=== PATIENT | female | born 1950 | race Caucasian/White ===

== ENCOUNTER 2017-05-26 22:18 | Emergency (ER) | payer MEDICARE, OTHER, SELFPAY ==
[~2017-05-26] VITALS: Ht 157.5 cm; Wt 68.0 kg
[~2017-05-26 22:18] MED LIST: ATIVAN1 MG PO; BUPROPION XL150 MG PO; CLONAZEPAM1 MG PO; CYTOMEL25 MCG PO; DEPLIN-ALGAL O1 EAC1 PO; DICLOFENAC SODI75 MG PO; DONEPEZIL HCL10 MG PO; DULOXETINE HCL40 MG PO; FLUOXETINE HCL20 MG PO; GABAPENTIN300 MG PO; GEODON60 MG PO; HYDROCODON-ACE1 EA10 PO; LITHIUM CARBON300 MG PO; METOPROLOL SUCC50 MG PO; PERCOCET 7.5-31 EACH PO; QUETIAPINE FUM100 MG PO; SUPER B COMPLE150 MG PO; TOPROL XL50 MG PO; TYLENOL EXTRA500 MG PO; VITAMIN D31000 UNI1 PO
[2017-05-26] MEDS ORDERED: PERCOCET 5-3251 EACH PO (23:43)
[2017-05-26] MEDS ORDERED: CRUTCH1 EACH MISC (23:55)
--- OUTSIDE RECORDS SUMMARY | 2017-05-27 00:43 | XMS ---
Demographics + + + | Address | [address] | | | [place] [address] | + + + | Preferred Language | Unknown | + + + | Marital Status | Unknown | + + + | Bahai Affiliation | Unknown | + + + | Race | Unknown | + + + | Ethnic Group | Unknown | + + + Author + + + | Author | [facility] | + + + | Organization | [facility] | + + + | Address | [address] | | | [place] [address] | + + + | Phone | | + + + Care Team Providers + + + + | Care Entry Level Finance Name | Role | Phone | + + + + Unavailable | Unavailable | + + + + PROBLEMS + + + + + + + + | Type | Condition | ICD9-CM | [id number] | Onset | Condition | SNOMED | | | | Code | Code | Dates | Status | Code | + + + + + + + + | Problem | Hypertensi | | I10 | | Active | [id number] | | | on | | | | | | + + + + + + + + | Problem | Tobacco | | Z72.0 | | Active | [id number] | | | use | | | | | | | | disorder | | | | | | + + + + + + + + | Problem | Neuropathy | G56.22 | | | Active | [id number] | | | of left | | | | | | | | ulnar | | | | | | | | nerve at | | | | | | | | wrist | | | | | | + + + + + + + + | Problem | Mitral | | I34.0 | | Active | [id number] | | | valve | | | | | | | | regurgitat | | | | | | | | ion | | | | | | + + + + + + + + | Problem | Diastolic | I51.9 | | | Active | 7027702 | | | dysfunctio | | | | | | | | n | | | | | | + + + + + + + + | Problem | Hyperchole | E78.00 | | | Active | 42575015 | | | sterolemia | | | | | | + + + + + + + + | Problem | Osteopenia | | M85.80 | | Active | 75081387 | + + + + + + + + | Problem | Heart | | R01.1 | | Active | 40953178 | | | murmur | | | | | | + + + + + + + + | Problem | MVP | I34.1 | | | Active | [id number] | | | (mitral | | | | | | | | valve | | | | | | | | prolapse) | | | | | | + + + + + + + + | Assessment | Mitral | | I34.0 | 28 Apr, | Active | 82399706 | | | valve | | | 2017 | | | | | regurgitat | | | | | | | | ion | | | | | | + + + + + + + + | Problem | Pulmonary | R91.8 | | | Active | [id number] | | | nodules | | | | | | + + + + + + + + | Problem | Left | I44.7 | | | Active | 92843451 | | | bundle | | | | | | | | branch | | | | | | | | block | | | | | | + + + + + + + + | 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 | | | Active | [id number] | | | | | | | | | | | adenocarci | | | | | | | | noma | | | | | | + + + + + + + + | Problem | Hypothyroi | E03.2 | | | Active | [id number] | | | dism, | | | | | 30547 | | | lithium | | | | | | | | induced | | | | | | + + + + + + + + | Problem | Hyperlipid | | E78.5 | | Active | [id number] | | | emia | | | | | | + + + + + + + + | Problem | Hypothyroi | E89.0 | | | Active | [id number] | | | dism | | | | | | | | associated | | | | | | | | with | | | | | | | | surgical | | | | | | | | procedure | | | | | | + + + + + + + + ALLERGIES + + + + +---------+ | Substance | Reaction | Event Type | Date | Status | + + + + +---------+ | N.K.D.A. | Unknown | Non Drug | Feb, | Unknown | | | | Allergy | | | + + + + +---------+ SOCIAL HISTORY No smoking Hx information available PLAN OF CARE VITAL SIGNS + + + + | Height | 62 in | 2017-03-25 | + + + + | Weight | 156 lbs | 2017-03-25 | + + + + | BMI | 28.53 kg/m2 | 2017-03-25 | + + + + | Temperature | 98.3 degrees Fahrenheit | 2017-03-25 | + + + + | Heart Rate | 90 /min | 2017-03-25 | + + + + | Blood pressure systolic | 138 mm Hg | 2017-03-25 | + + + + | Blood pressure diastolic | 88 mm Hg | 2017-03-25 | + + + + MEDICATIONS + + + + + + + +--------+ | Medicati | Instruct | Dosage | Frequenc | Start | End Date | Duration | Status | | on | ions | | y | Date | | | | + + + + + + + +--------+ | Geodon | Orally | 1 | 24h | | | | Active | | 80 mg | daily | capsule | | | | | | | | | with | | | | | | | | | food | | | | | | + + + + + + + +--------+ | Gabapent | Orally | 3 | 8h | | | | Active | | in 300 | Three | capsules | | | | | | | MG | times a | | | | | | | | | day | | | | | | | + + + + + + + +--------+ | Liothyro | | | | | | | Active | | nine | | | | | | | | | Sodium | | | | | | | | | 25 MCG | | | | | | | | + + + + + + + +--------+ | Levothyr | Orally | 1 tablet | 24h | 17 Sep, | | | Active | | oxine | Once a | every | | 2014 | | | | | Sodium | day | morning | | | | | | | 25 MCG | | on an | | | | | | | | | empty | | | | | | | | | stomach | | | | | | + + + + + + + +--------+ | Chlor-Ta | | | | | | | Active | | blets | | | | | | | | + + + + + + + +--------+ | Metoprol | Orally | 1 tablet | 24h | | 1 Jason, | 90 days | Active | | ol | Once a | | | | 2016 | | | | Succinat | day | | | | | | | | e 50 MG | | | | | | | | + + + + + + + +--------+ | Metoprol | | | | | | | Active | | ol | | | | | | | | | Succinat | | | | | | | | | e ER 50 | | | | | | | | | MG | | | | | | | | + + + + + + + +--------+ | Lisinopr | Orally | 1 tablet | 24h | 28 Apr, | | 30 | Active | | il 2.5 | Once a | | | 2017 | | day(s) | | | MG | day | | | | | | | + + + + + + + +--------+ | BuPROPio | Orally | 1 tablet | 12h | | | | Active | | n HCl | Twice a | | | | | | | | 150 MG | day | | | | | | | + + + + + + + +--------+ | Dennison | Orally | 2 | 24h | | | | Active | | Carbonat | Once a | capsules | | | | | | | e 300 MG | day | | | | | | | + + + + + + + +--------+ | Nicotine | Mouth/Th | 1 | 12h | | | | Active | | 2 MG | roat | lozenge | | | | | | | | Twice a | as | | | | | | | | day | needed | | | | | | + + + + + + + +--------+ | Vitamin | | | | | | | Active | | D3 5000 | | | | | | | | | UNIT/ML | | | | | | | | + + + + + + + +--------+ | Atorvast | | | | | | | Active | | atin | | | | | | | | | Calcium | | | | | | | | | 10 MG | | | | | | | | + + + + + + + +--------+ | Lorazepa | Orally 4 | .5 | | | | | Active | | m .5 | times | tablet | | | | | | | | pd | | | | | | | + + + + + + + +--------+ | Melatoni | | | | | | | Active | | n 5 MG | | | | | | | | + + + + + + + +--------+ | Donepezi | | | | | | | Active | | l HCl 10 | | | | | | | | | MG | | | | | | | | + + + + + + + +--------+ | Seroquel | Orally | 1/2 | 24h | | | | Active | | 300 MG | Once a | tablet | | | | | | | | day | at | | | | | | | | | bedtime | | | | | | + + + + + + + +--------+ | St Gage | Orally | | | | | | Active | | Wort | 3x a day | | | | | | | | 300 MG | | | | | | | | + + + + + + + +--------+ | Duloxeti | Orally | 1 | 24h | | | | Active | | ne HCl | Once a | capsule | | | | | | | 60 MG | day | | | | | | | + + + + + + + +--------+ | Tylenol | Oral 2-4 | .1 | | | | | Active | | 325 mg | daily | tablet | | | | | | + + + + + + + +--------+ | Magnesiu | | | | | | | Active | | m 250 MG | | | | | | | | + + + + + + + +--------+ RESULTS No Results PROCEDURES + + + + + | Procedure | Date Ordered | Related Diagnosis | Body Site | + + + + + | Office Visit, Est | March 25, 2017 | | | | Pt., Level 4 | | | | + + + + + | [facility] MED/CURRENT | March 25, 2017 | | | | MED MERGE | | | | + + + + + IMMUNIZATIONS No Known Immunizations"
== END 2017-05-27 00:45 | disposition home or self-care (01) ==
LOC: ED 22:18
DX: S93.05XA Dislocation of left ankle joint, initial encounter (principal); S82.842A Displaced bimalleolar fracture of left lower leg, initial encounter for closed fracture; F31.9 Bipolar disorder, unspecified; I10 Essential (primary) hypertension; Z90.49 Acquired absence of other specified parts of digestive tract; Z90.710 Acquired absence of both cervix and uterus; Z79.899 Other long term (current) drug therapy; W01.0XXA Fall on same level from slipping, tripping and stumbling without subsequent striking against object, initial encounter
CPT/HCPCS: 27810; 73610; 96374; 99152; 99283; J2704; J3010; J7030

== ENCOUNTER 2017-05-28 02:17 | Emergency (ER) | payer MEDICARE, OTHER ==
[~2017-05-28] VITALS: Ht 157.5 cm; Wt 68.0 kg
[~2017-05-28 02:17] MED LIST changes: +CRUTCH1 EACH MISC; +PERCOCET 5-3251 EACH PO
== END 2017-05-28 05:33 | disposition short-term general hospital (02) ==
LOC: ED 02:17
DX: S82.852D Displaced trimalleolar fracture of left lower leg, subsequent encounter for closed fracture with routine healing (principal); F25.9 Schizoaffective disorder, unspecified; F31.9 Bipolar disorder, unspecified; Z90.49 Acquired absence of other specified parts of digestive tract; Z90.710 Acquired absence of both cervix and uterus; Z79.899 Other long term (current) drug therapy; X58.XXXD Exposure to other specified factors, subsequent encounter
CPT/HCPCS: 27840; 73610; 80053; 85025; 96374; 99152; 99285; J2704; J3010

== ENCOUNTER 2018-12-27 09:44 | Emergency (ER) | payer MEDICARE, OTHER ==
[~2018-12-27] VITALS: Ht 157.5 cm; Wt 68.0 kg
[2018-12-27] MEDS ORDERED: BUSPIRONE HCL10 MG PO (09:59)
[2018-12-27] MEDS ORDERED: PROTONIX40 MG PO (12:49)
--- NOTE | 2018-12-28 07:43 | EKG ---
[facility] [address] [place] [address] Signed Sinus bradycardia Left bundle branch block Abnormal ECG When compared with ECG of 14-JAN-2017 13:26, T wave inversion no longer evident in Lateral leads Confirmed by CALVIN LONG MD ([id number]) on 12/28/2018 7:42:51 AM Electronically Signed By: CALVIN LONG MD 12/28/18 0743 PATIENT NAME: LUBNATERESAMARINA Hughes Electrocardiogram DATE OF : 54 PHYSICIAN: CALVIN LONG MD REPORT #: [id number] REPORT IS CONFIDENTIAL AND NOT TO BE RELEASED WITHOUT AUTHORIZATION
== END 2018-12-27 13:21 | disposition home or self-care (01) ==
LOC: ED 09:44
DX: R10.13 Epigastric pain (principal); F31.9 Bipolar disorder, unspecified; I10 Essential (primary) hypertension; Z90.49 Acquired absence of other specified parts of digestive tract; Z90.710 Acquired absence of both cervix and uterus; Z79.899 Other long term (current) drug therapy
CPT/HCPCS: 71045; 74160; 80053; 81001; 83690; 84484; 85025; 93005; 93010; 99284-25; Q9967

== ENCOUNTER 2020-02-07 04:21 | Emergency (ER) | payer MEDICARE, OTHER ==
[~2020-02-07] VITALS: Ht 157.5 cm; Wt 68.0 kg
[~2020-02-07 04:21] MED LIST changes: +BUSPIRONE HCL10 MG PO; +PROTONIX40 MG PO
[2020-02-07] MEDS ORDERED: VITAMIN D250 MCG PO (04:36)
== END 2020-02-07 05:12 | disposition home or self-care (01) ==
LOC: ED 04:21
PROC: 0HQ1XZZ Repair Face Skin, External Approach (ICD-10-PCS; principal; 2020-02-07)
DX: S01.111A Laceration without foreign body of right eyelid and periocular area, initial encounter (principal); W06.XXXA Fall from bed, initial encounter; F31.9 Bipolar disorder, unspecified; I10 Essential (primary) hypertension; Z79.899 Other long term (current) drug therapy
CPT/HCPCS: 12013; 90471; 90714; 99282-25

== ENCOUNTER 2020-04-19 23:20 | Emergency (ER) | payer MEDICARE, OTHER ==
[~2020-04-19] VITALS: Ht 157.5 cm; Wt 68.0 kg
--- OUTSIDE RECORDS SUMMARY | ~2020-04-19 | XMS | Encounter Summary ---
Demographics + + + | Address | [address] | | | [place] [address] | + + + | Home Phone | | + + + | Preferred Language | Unknown | + + + | Marital Status | Unknown | + + + | Zoroastrian Affiliation | Unknown | + + + | Race | Unknown | + + + | Ethnic Group | Unknown | + + + Author + + + | Author | [facility] | | | and [facility] | + + + | Organization | [facility] | | | and [facility] | + + + | Address | Unknown | + + + | Phone | Unavailable | + + + Support + + +---------+ + | Name | Relationship | Address | Phone | + + +---------+ + | Joaquin STYLES | Unknown | | + + +---------+ + Care Team Providers + +------+ + | Care Electronic Gluing Machine Operator Name | Role | Phone | + +------+ + | Palomo Gibbons MD | PCP | | + +------+ + Encounter Details +--------+ + + + + | Date | Type | Department | Care Team | Description | +--------+ + + + + | 06/14/ | Orders Only | [facility] | Darci Pedra[facility] | | | 2016 | | [address] | [address] | | | | | [address] | [place], | | | | | [facility] | [place] [address] | | | | | [address] | [phone] | | | | | [phone] | | | +--------+ + + + + Social History + +-------+ +--------+------+ | Tobacco Use | Types | Packs/Day | Years | Date | | | | | Used | | + +-------+ +--------+------+ | Never Assessed | | | | | + +-------+ +--------+------+ + + + | Sex Assigned at | Date Recorded | | | | + + + | Not on file | | + + + + + + + | Job Start Date | Occupation | Industry | + + + + | Not on file | Not on file | Not on file | + + + + + + + + | Travel History | Travel Start | Travel End | + + + + + + | No recent travel history available. | + + documented as of this encounter Plan of Treatment Not on filedocumented as of this encounter Procedures + +--------+ + + + | Procedure Name | Priori | Date/Time | Associated Diagnosis | Comments | | | ty | | | | + +--------+ + + + | XR ANKLE LEFT 3 + VW | Routin | 06/14/2017 | | Results for this | | | e | 11:14 AM | | procedure are in the | | | | PDT | | results section. | + +--------+ + + + documented in this encounter Results XR Ankle Left 3 + Vw (06/14/2017 11:14 AM PDT) + + | Specimen | + + | | + + + + + | Narrative | Performed At | + + + | Indication: Left ankle fracture. Technique: AP, mortise, and | | | lateral views of the left ankle were reviewed. Comparative | | | imaging: X-rays from 2-1/2 weeks ago was available for review. | | | Findings: X-rays of the left ankle were obtained and compared to | | | previous imaging. Her talus is located in the ankle mortise and a | | | lateral plate has been applied to a comminuted fibula fracture. | | | There is no evidence of hardware failure and her current alignment | | | of the ankle joint is near anatomic. Impression: Internal | | | fixation of distal fibula fracture with ankle joint remaining | | | reduced. | | + + + + + | Procedure Note | + + | Jose Ruth Conversion - 07/19/2019 8:13 PM PDT Indication: Left ankle fracture. | | | | Technique: AP, mortise, and lateral views of the left ankle were reviewed. | | | | Comparative imaging: X-rays from 2-1/2 weeks ago was available for review. | | | | Findings: X-rays of the left ankle were obtained and compared to previous | | imaging. Her talus is located in the ankle mortise and a lateral plate | | has been applied to a comminuted fibula fracture. There is no evidence of | | hardware failure and her current alignment of the ankle joint is near | | anatomic. | | | | Impression: Internal fixation of distal fibula fracture with ankle joint | | remaining reduced. | + + documented in this encounter Visit Diagnoses Not on filedocumented in this encounter"
--- OUTSIDE RECORDS SUMMARY | ~2020-04-19 | XMS | Encounter Summary ---
Demographics + + + | Address | [address] | | | [place] [address] | + + + | Home Phone | | + + + | Preferred Language | Unknown | + + + | Marital Status | Unknown | + + + | Yarsani Affiliation | Unknown | + + + | Race | Unknown | + + + | Ethnic Group | Unknown | + + + Author + + + | Author | [facility] | | | and [place] | + + + | Organization | [facility] | | | and [facility] | + + + | Address | Unknown | + + + | Phone | Unavailable | + + + Support + + +---------+ + | Name | Relationship | Address | Phone | + + +---------+ + | Joaquin STYLES | Unknown | | + + +---------+ + Care Team Providers + +------+ + | Care Railroad Conductor Name | Role | Phone | + +------+ + | Palomo Gibbons MD | PCP | | + +------+ + Encounter Details +--------+ + + + + | Date | Type | Department | Care Team | Description | +--------+ + + + + | 06/22/ | Imaging | [facility] | Provider, | | | 2017 | Exam | [facility] | MD [address] | | | | | IM[facility] [address] | [address] | | | | | [address] [place] | [place] [id number] | | | | | [place] [address] | | | | | | [phone] | | | +--------+ + + + [...] LEFT 3 + VW | Routin | 05/28/2017 | | Results for this | | | e | 2:25 AM | | procedure are in the | | | | PDT | | results section. | + +--------+ + + + documented in this encounter Results XR Ankle Left 3 + Vw (05/28/2017 2:25 AM PDT) + + | Specimen | + + | | + + + + + | Narrative | Performed At | + + + | External films for comparison only - no result from [facility]. | [facility] | + + + + +---------+ + + | Performing | Address | City/State/Zipcode | Phone Number | | Organization | | | | + +---------+ + + | [facility] | | | | + +---------+ + + documented in this encounter Visit Diagnoses Not on filedocumented in this encounter"
--- OUTSIDE RECORDS SUMMARY | ~2020-04-19 | XMS | Encounter Summary ---
Demographics + + + | Address | [address] | | | [place] [address] | + + + | Home Phone | | + + + | Preferred Language | Unknown | + + + | Marital Status | Unknown | + + + | Quaker Affiliation | Unknown | + + + | Race | Unknown | + + + | Ethnic Group | Unknown | + + + Author + + + | Author | [facility] | | | and [facility] | + + + | Organization | [facility] | | | and [facility] [...] Team Providers + +------+ + | Care Concrete Mixer Loader Truck Mounted Name | Role | Phone | + +------+ + | Palomo Gibbons MD | PCP | | + +------+ + Encounter Details +--------+ + + + + | Date | Type | Department | Care Team | Description | +--------+ + + + + | 03/15/ | Orders Only | [facility] | Palomo Gibbons | | | 2017 | | CONVERSION 888 | MD [address] | | | | | [address] | [address] | | | | | [place] | [place] [address] | | | | | [id number] | [phone] | | | | | [phone] | | | +--------+ + + + [...] | + +--------+ + + + | ECHO INTERPRETATION | Routin | 03/15/2017 | | Results for this | | OF OUTSIDE FILMS | e | 10:12 AM | | procedure are in the | | | | PDT | | results section. | + +--------+ + + + documented in this encounter Results ECHO Interpretation of Outside Films (03/15/2017 10:12 AM PDT) + + | Specimen | + + | | + + + + + | Impressions | Performed At | + + + | 1. Overall left ventricular systolic function is normal with, an EF | | | between 65 - 70 %. However, there is hyopkinesis of basal | | | inferolateral and basal anteroseptal segments. 2. The diastolic | | | filling pattern indicates impaired relaxation and elevated LA pressure | | | consistent with mild dysfunction (Grade I). 3. The right ventricle | | | is normal in size and function. 4. Ueke-qu-nyhpqwbb mitral | | | regurgitation is present. | | + + + + + + | Narrative | Performed At | + + + | Patient Name: Katelynn Hidalgo Date of : 1950 | | | Performing Physician: LEONARD STEELE MD | | | | | | INDICATIONS Mitral valve prolapse CONCLUSIONS | | | 1. Overall left ventricular systolic function is normal | | | with, an EF between 65 - 70 %. However, there is hyopkinesis of | | | basal inferolateral and basal anteroseptal segments. 2. The diastolic | | | filling pattern indicates impaired relaxation and elevated LA | | | pressure consistent with mild dysfunction (Grade I). 3. The right | | | ventricle is normal in size and function. 4. Tlui-rx-jdmfdzzu mitral | | | regurgitation is present. FINDINGS -------- ECG rhythm: Sinus | | | rhythm. Study: A 2-dimensional transthoracic echocardiogram with | | | m-mode, spectral and color flow Dopple with LV strain imaging was | | | perfomed at [facility]. Study: This was a technically | | | adequate study. Left Ventricle: Overall left ventricular systolic | | | function is normal with, an EF between 65 - 70 %. Left Ventricle: The | | | left ventricle cavity size is normal. Left Ventricle: Left | | | ventricular wall thickness is normal. Left Ventricle: The diastolic | | | filling pattern indicates impaired relaxation and elevated LA pressure | | | consistent with mild dysfunction (Grade I). Left Ventricle: The | | | following regional wall motion abnormalities include: Left Ventricle: | | | basal anteroseptal - mildly hypokinetic; Left Ventricle: basal | | | inferolateral - moderately hypokinetic; Left Ventricle: The remaining | | | left ventricular segments contract normally. Right Ventricle: The | | | right ventricle is normal in size and function. Left Atrium: The left | | | atrial size is normal. Right Atrium: The right atrial size is | | | normal. Aortic Valve: The aortic valve is trileaflet and appears | | | structurally normal. Aortic Valve: There is no evidence of aortic | | | regurgitation. Aortic Valve: There is no evidence of aortic stenosis. | | | Mitral Valve: The mitral valve is normal. Mitral Valve: | | | Resk-xi-pcsbycde mitral regurgitation is present. Tricuspid Valve: | | | The tricuspid valve appears structurally normal. Tricuspid Valve: | | | Trace tricuspid regurgitation present. Tricuspid Valve: There is no | | | evidence of pulmonary hypertension. Tricuspid Valve: The right | | | ventricular systolic pressure (pulmonary artery systolic pressure), as | | | measured by Doppler, is 29.37mmHg. Pulmonic Valve: The pulmonic | | | valve was not well visualized. Pericardium: There is no pericardial | | | effusion. IVC/Hepatic Veins: The IVC is normal size (1.5-2.5cm) and | | | collapses >50% with sniff, consistent with central venous pressures of | | | 5-10mmHg. Aorta: The aortic root, ascending aorta and aortic arch | | | are normal. Mass: No mass visualized Thrombus: No clot visualized | | | Thrombus: No vegetation visualized. Septum: No ASD observed. Septum: | | | No VSD observed. MEASUREMENTS Ao asc: 3.40 cm | | | Ao Diam: 2.73 cm Ao sinus: 3.[address] junct: 2.96 cm | | | IVC: 1.63 cm LA Diam: 3.96 cm LA Major: 4.44 cm | | | EDV(Teich): 72.59 ml IVSd: 0.98 cm LVIDd: 4.06 cm LVPWd: | | | 0.82 cm LVOT Area: 3.11 cm2 LVOT Diam: 1.99 cm %FS: | | | 31.98 % EF(Teich): 60.62 % ESV(Teich): 28.58 ml LVIDs: | | | 2.76 cm SV(Teich): 44.00 ml RV Major: 5.43 cm RVIDd: 2.75 | | | cm LVEF MOD A2C: 66.16 % SV MOD A2C: 28.90 ml LVEF MOD A4C: | | | 63.97 % SV MOD A4C: 35.90 ml EF Biplane: 65.27 % LVEDV MOD | | | BP: 49.90 ml LVESV MOD BP: 17.33 ml LVEDV MOD A2C: 43.68 | | | ml LVLd A2C: 6.55 cm LVEDV MOD A4C: 56.11 ml LVLd A4C: | | | 6.41 cm LVESV MOD A2C: 14.77 ml LVLs A2C: 6.07 cm LVESV MOD | | | A4C: 20.21 ml LVLs A4C: 5.93 cm LAESV(A-L): 44.62 ml LAESV | | | Index (A-L): 25.94 ml/m2 LAAs A2C: 15.00 cm2 LAESV A-L A2C: | | | 43.46 ml LALs A2C: 4.39 cm LAAs A4C: 15.02 cm2 LAESV A-L | | | A4C: 44.67 ml LALs A4C: 4.28 cm RAAs: 8.34 cm2 RAESV A-L: | | | 18.05 ml RAESV MOD: 17.24 ml RALs: 3.27 cm TAPSE: 2.29 | | | cm AV maxP.59 mmHg AV meanP.38 mmHg AV Vmax: 1.77 | | | m/s AV Vmean: 1.09 m/s AV VTI: 26.07 cm FABIO Vmax: 2.47 | | | cm2 FABIO (VTI): 2.72 cm2 AVAI Vmax: 0.00 cm2/m2 AVAI (VTI): | | | 0.00 cm2/m2 LVOT maxP.94 mmHg LVOT meanP.62 mmHg | | | LVSI Dopp: 41.34 ml/m2 LVSV Dopp: 71.10 ml LVOT Vmax: 1.40 | | | m/s LVOT Vmean: 0.86 m/s LVOT VTI: 22.81 cm MV A Faustino: 1.26 | | | m/s MV DecT: 230.68 ms MV E Faustino: 0.93 m/s MV E/A Ratio: | | | 0.74 MV PHT: 66.89 ms MVA By PHT: 3.28 cm2 Septal e': 0.03 | | | m/s Septal E/e': 24.94 Lateral e': 0.03 m/s Lateral E/e': | | | 29.97 RAP: 5 mmHg RVSP: 29.37 mmHg TR maxP.37 mmHg | | | TR Vmax: 2.46 m/s Lockstitch Binder: ANNETTE Authenticated by: LEONARD | | | MD IVETTE Report Date/Time: -[id number]:47 | | + + + + + | Procedure Note | + + | FarazJose Conversion - 07/19/2019 8:13 PM PDT Patient Name: Ruma Hidalgo | | : 1950 Performing Physician: LEONARD STEELE, | | MD INDICATIONS M | | itral valve prolapse CONCLUSIONS 1. Overall left ventricular systolic function | | is normal with, an EF between 65 - 70 %. However, there is hyopkinesis of basal | | inferolateral and basal anteroseptal segments.2. The diastolic filling pattern indicates | | impaired relaxation and elevated LA pressure consistent with mild dysfunction (Grade | | I).3. The right ventricle is normal in size and function.4. Hlxz-jn-pqlverhq mitral | | regurgitation is present. FINDINGS--------ECG rhythm: Sinus rhythm.Study: A | | 2-dimensional transthoracic echocardiogram with m-mode, spectral and color flow Dopple | | with LV strain imaging was perfomed at [facility].Study: This was a | | technically adequate study.Left Ventricle: Overall left ventricular systolic function is | | normal with, an EF between 65 - 70 %.Left Ventricle: The left ventricle cavity size is | | normal.Left Ventricle: Left ventricular wall thickness is normal.Left Ventricle: The | | diastolic filling pattern indicates impaired relaxation and elevated LA pressure | | consistent with mild dysfunction (Grade I).Left Ventricle: The following regional wall | | motion abnormalities include:Left Ventricle: basal anteroseptal - mildly | | hypokinetic;Left Ventricle: basal inferolateral - moderately hypokinetic;Left Ventricle: | | The remaining left ventricular segments contract normally.Right Ventricle: The right | | ventricle is normal in size and function.Left Atrium: The left atrial size is | | normal.Right Atrium: The right atrial size is normal.Aortic Valve: The aortic valve is | | trileaflet and appears structurally normal.Aortic Valve: There is no evidence of aortic | | regurgitation.Aortic Valve: There is no evidence of aortic stenosis.Mitral Valve: The | | mitral valve is normal.Mitral Valve: Zous-fb-tjplklew mitral regurgitation is | | present.Tricuspid Valve: The tricuspid valve appears structurally normal.Tricuspid | | Valve: Trace tricuspid regurgitation present.Tricuspid Valve: There is no evidence of | | pulmonary hypertension.Tricuspid Valve: The right ventricular systolic pressure | | (pulmonary artery systolic pressure), as measured by Doppler, is 29.37mmHg.Pulmonic | | Valve: The pulmonic valve was not well visualized.Pericardium: There is no pericardial | | effusion.IVC/Hepatic Veins: The IVC is normal size (1.5-2.5cm) and collapses >50% with | | sniff, consistent with central venous pressures of 5-10mmHg.Aorta: The aortic root, | | ascending aorta and aortic arch are normal.Mass: No mass visualizedThrombus: No clot | | visualizedThrombus: No vegetation visualized.Septum: No ASD observed.Septum: No VSD | | observed. MEASUREMENTS Ao asc: 3.40 cmAo Diam: 2.73 cmAo sinus: 3.29 | | cmAo st junct: 2.96 cmIVC: 1.63 cmLA Diam: 3.96 cmLA Major: 4.44 cmEDV(Teich): | | 72.59 mlIVSd: 0.98 cmLVIDd: 4.06 cmLVPWd: 0.82 cmLVOT Area: 3.11 [id number] Diam: | | 1.99 cm%FS: 31.98 %EF(Teich): 60.62 %ESV(Teich): 28.58 mlLVIDs: 2.76 | | cmSV(Teich): 44.00 mlRV Major: 5.43 cmRVIDd: 2.75 cmLVEF MOD A2C: 66.16 %SV MOD | | A2C: 28.90 mlLVEF MOD A4C: 63.97 %SV MOD A4C: 35.90 mlEF Biplane: 65.27 %LVEDV | | MOD BP: 49.90 mlLVESV MOD BP: 17.33 mlLVEDV MOD A2C: 43.68 mlLVLd A2C: 6.55 | | cmLVEDV MOD A4C: 56.11 mlLVLd A4C: 6.41 cmLVESV MOD A2C: 14.77 mlLVLs A2C: 6.07 | | cmLVESV MOD A4C: 20.21 mlLVLs A4C: 5.93 cmLAESV(A-L): 44.62 mlLAESV Index (A-L): | | 25.94 ml/m2LAAs A2C: 15.00 [id number] A-L A2C: 43.46 mlLALs A2C: 4.39 cmLAAs A4C: | | 15.02 [id number] A-L A4C: 44.67 mlLALs A4C: 4.28 cmRAAs: 8.34 [id number] A-L: 18.05 | | mlRAESV MOD: 17.24 mlRALs: 3.27 cmTAPSE: 2.29 cmAV maxP.59 mmHgAV meanPG: | | 5.38 mmHgAV Vmax: 1.77 m/Donald Vmean: 1.09 m/Donald VTI: 26.07 cmAVA Vmax: 2.47 | | cm2AVA (VTI): 2.72 [id number] Vmax: 0.00 cm2/m2AVAI (VTI): 0.00 cm2/m2LVOT maxPG: | | 7.94 mmHgLVOT meanP.62 mmHgLVSI Dopp: 41.34 ml/m2LVSV Dopp: 71.10 mlLVOT Vmax: | | 1.40 m/sLVOT Vmean: 0.86 m/sLVOT VTI: 22.81 cmMV A Faustino: 1.26 m/sMV DecT: | | 230.68 msMV E Faustino: 0.93 m/sMV E/A Ratio: 0.74MV PHT: 66.89 msMVA By PHT: 3.28 | | iw4Avvlwu e': 0.03 m/sSeptal E/e': 24.94Lateral e': 0.03 m/sLateral E/e': | | 29.97RAP: 5 mmHgRVSP: 29.37 mmHgTR maxP.37 mmHgTR Vmax: 2.46 m/s | | Lockstitch Binder: MALACHIuthenticated by: Isabel AVENDAÑO Date/Time: -- | | [id number]:20:47 IMPRESSION: 1. Overall left ventricular systolic function is | | normal with, an EF between 65 - 70 %. However, there is hyopkinesis of basal | | inferolateral and basal anteroseptal segments.2. The diastolic filling pattern indicates | | impaired relaxation and elevated LA pressure consistent with mild dysfunction (Grade | | I).3. The right ventricle is normal in size and function.4. Kayx-ej-labrbkoj mitral | | regurgitation is present. | |Ao st junct: 2.96 cm | |IVC: 1.63 cm | |LA Diam: 3.96 cm | |LA Major: 4.44 cm | |EDV(Teich): 72.59 ml | |IVSd: 0.98 cm | |LVIDd: 4.06 cm | |LVPWd: 0.82 cm | |LVOT Area: 3.11 cm2 | |LVOT Diam: 1.99 cm | |%FS: 31.98 % | |EF(Teich): 60.62 % | |ESV(Teich): 28.58 ml | |LVIDs: 2.76 cm | |SV(Teich): 44.00 ml | |RV Major: 5.43 cm | |RVIDd: 2.75 cm | |LVEF MOD A2C: 66.16 % | |SV MOD A2C: 28.90 ml | |LVEF MOD A4C: 63.97 % | |SV MOD A4C: 35.90 ml | |EF Biplane: 65.27 % | |LVEDV MOD BP: 49.90 ml | |LVESV MOD BP: 17.33 ml | |LVEDV MOD A2C: 43.68 ml | |LVLd A2C: 6.55 cm | |LVEDV MOD A4C: 56.11 ml | |LVLd A4C: 6.41 cm | |LVESV MOD A2C: 14.77 ml | |LVLs A2C: 6.07 cm | |LVESV MOD A4C: 20.21 ml | |LVLs A4C: 5.93 cm | |LAESV(A-L): 44.62 ml | |LAESV Index (A-L): 25.94 ml/m2 | |LAAs A2C: 15.00 cm2 | |LAESV A-L A2C: 43.46 ml | |LALs A2C: 4.39 cm | |LAAs A4C: 15.02 cm2 | |LAESV A-L A4C: 44.67 ml | |LALs A4C: 4.28 cm | |RAAs: 8.34 cm2 | |RAESV A-L: 18.05 ml | |RAESV MOD: 17.24 ml | |RALs: 3.27 cm | |TAPSE: 2.29 cm | |AV maxP.59 mmHg | |AV meanP.38 mmHg | |AV Vmax: 1.77 m/s | |AV Vmean: 1.09 m/s | |AV VTI: 26.07 cm | |FABIO Vmax: 2.47 cm2 | |FABIO (VTI): 2.72 cm2 | |AVAI Vmax: 0.00 cm2/m2 | |AVAI (VTI): 0.00 cm2/m2 | |LVOT maxP.94 mmHg | |LVOT meanP.62 mmHg | |LVSI Dopp: 41.34 ml/m2 | |LVSV Dopp: 71.10 ml | |LVOT Vmax: 1.40 m/s | |LVOT Vmean: 0.86 m/s | |LVOT VTI: 22.81 cm | |MV A Faustino: 1.26 m/s | |MV DecT: 230.68 ms | |MV E Faustino: 0.93 m/s | |MV E/A Ratio: 0.74 | |MV PHT: 66.89 ms | |MVA By PHT: 3.28 cm2 | |Septal e': 0.03 m/s | |Septal E/e': 24.94 | |Lateral e': 0.03 m/s | |Lateral E/e': 29.97 | |RAP: 5 mmHg | |RVSP: 29.37 mmHg | |TR maxP.37 mmHg | |TR Vmax: 2.46 m/s | | | |Lockstitch Binder: | |Authenticated by: LEONARD STEELE MD | |Report Date/Time: -- [id number]:20:47 | | | |IMPRESSION: | |1. Overall left ventricular systolic function is normal with, an EF between 65 - 70 %. How ever, there is hyopkinesis of basal inferolateral and basal anteroseptal segments. | |2. The diastolic filling pattern indicates impaired relaxation and elevated LA pressure con sistent with mild dysfunction (Grade I). | |3. The right ventricle is normal in size and function. | |4. Ybes-ou-ipwosqsb mitral regurgitation is present. | + + documented in this encounter Visit Diagnoses Not on filedocumented in this encounter"
--- OUTSIDE RECORDS SUMMARY | ~2020-04-19 | XMS | Encounter Summary ---
Demographics + + + | Address | [address] | | | [place] [address] | + + + | Home Phone | | + + + | Preferred Language | Unknown | + + + | Marital Status | Unknown | + + + | Orthodoxy Affiliation | Unknown | + + + | Race | Unknown | + + + | Ethnic Group | Unknown | + + + Author + + + | Author | [facility] | | | and [facility] | + + + | Organization | [facility] | | | and [facility] [...] Team Providers + +------+ + | Care Nursing Home Admissions Director Name | Role | Phone | + [...] | | [place] | [place] [address] | | | | | [address] | [phone] | | | | | [phone] | | | +--------+ + + + [...] is normal in size and function. 4. Idom-og-dlviihju mitral | | | regurgitation is present. [...] is normal in size and function. 4. Amzx-rg-izfakdiu mitral | | | regurgitation is present. FINDINGS -------- ECG rhythm: Sinus | | | rhythm. Study: A 2-dimensional transthoracic echocardiogram with | | | m-mode, spectral and color flow Dopple with LV strain imaging was | | | perfomed at [facility]. Study: This was a technically | | [...] is normal. Mitral Valve: | | | Gjdj-fn-tjvgchff mitral regurgitation is present. Tricuspid Valve: | [...] | | | TR Vmax: 2.46 m/s Consumer Loan Specialist: ANNETTE Authenticated by: LEONARD | | | MD IVETTE Report Date/Time: -[id number]:20:47 | | + + + + + [...] ventricle is normal in size and function.4. Vvex-dm-gritzhpy mitral | | regurgitation is present. FINDINGS--------ECG rhythm: Sinus rhythm.Study: A | | 2-dimensional transthoracic echocardiogram with m-mode, spectral and color flow Dopple | | with LV strain imaging was perfomed at [facility].Study: This was a | | technically adequate [...] | | mitral valve is normal.Mitral Valve: Cchg-dq-qijovgyw mitral regurgitation is | | present.Tricuspid Valve: [...] cmLVIDd: 4.06 cmLVPWd: 0.82 cmLVOT Area: 3.11 jg5SEVG Diam: | | 1.99 cm%FS: 31.98 %EF(Teich): [...] (A-L): | | 25.94 ml/m2LAAs A2C: 15.00 gj9LLRNG A-L A2C: 43.46 mlLALs A2C: 4.39 cmLAAs A4C: | | 15.02 yi4DCYDU A-L A4C: 44.67 mlLALs A4C: 4.28 cmRAAs: 8.34 mx5IHLQT A-L: 18.05 | | mlRAESV MOD: 17.24 mlRALs: 3.27 cmTAPSE: 2.29 cmAV maxP.59 mmHgAV meanPG: | | 5.38 mmHgAV Vmax: 1.77 m/Donald Vmean: 1.09 m/Donald VTI: 26.07 cmAVA Vmax: 2.47 | | cm2AVA (VTI): 2.72 aw3WNBL Vmax: 0.00 cm2/m2AVAI (VTI): 0.00 cm2/m2LVOT maxPG: | | 7.94 mmHgLVOT meanP.62 mmHgLVSI Dopp: 41.34 ml/m2LVSV Dopp: 71.10 mlLVOT Vmax: | | 1.40 m/sLVOT Vmean: 0.86 m/sLVOT VTI: 22.81 cmMV A Faustino: 1.26 m/sMV DecT: | | 230.68 msMV E Faustino: 0.93 m/sMV E/A Ratio: 0.74MV PHT: 66.89 msMVA By PHT: 3.28 | | lr0Splwej e': 0.03 m/sSeptal E/e': 24.94Lateral e': 0.03 m/sLateral E/e': | | 29.97RAP: 5 mmHgRVSP: 29.37 mmHgTR maxP.37 mmHgTR Vmax: 2.46 m/s | | Consumer Loan Specialist: MALACHIuthenticated by: Isabel AVENDAÑO Date/Time: -- | | [id number]:20:47 IMPRESSION: 1. Overall left ventricular systolic function is | | normal with, an EF between 65 - 70 %. However, there is hyopkinesis of basal | | inferolateral and basal anteroseptal segments.2. The diastolic filling pattern indicates | | impaired relaxation and elevated LA pressure consistent with mild dysfunction (Grade | | I).3. The right ventricle is normal in size and function.4. Exbo-oh-dmmvmzwo mitral | | regurgitation is present. | [...] |TR Vmax: 2.46 m/s | | | |Consumer Loan Specialist: | |Authenticated by: LEONARD STEELE MD | |Report Date/Time: -- 08_[id number]:20:47 | | | |IMPRESSION: | |1. Overall [...] normal in size and function. | |4. Qvbp-tx-iozaygpp mitral regurgitation is present. | + + documented in this encounter Visit Diagnoses Not on filedocumented in this encounter"
--- OUTSIDE RECORDS SUMMARY | ~2020-04-19 | XMS | Encounter Summary ---
Demographics + + + | Address | [address] | | | [place] [address] | + + + | Home Phone | | + + + | Preferred Language | Unknown | + + + | Marital Status | Unknown | + + + | Yazdanism Affiliation | Unknown | + + + | Race | Unknown | + + + | Ethnic Group | Unknown | + + + Author + + + | Author | [facility] | | | and [facility] | + + + | Organization | [facility] | | | and [facility] [...] Team Providers + +------+ + | Care Impregnation Operator Name | Role | Phone | [...] | MED CTR EXTERNAL | MD Leah [phone] | | | | | IMAGING [address] | [place] | | | | | [address] [place] | [place] [address] | | | | | [place] [address] | | | | | | [phone] | | | +--------+ + + + [...] for this | | | e | 3:30 AM | | procedure are in the | | | | PDT | | results section. | + +--------+ + + + documented in this encounter Results XR Ankle Left 3 + Vw (05/28/2017 3:30 AM PDT) + + | Specimen | [...]
--- OUTSIDE RECORDS SUMMARY | ~2020-04-19 | XMS | Clinical Summary ---
Demographics + + + | Address | [address] | | | [place] [address] | + + + | Home Phone | | + + + | Preferred Language | Unknown | + + + | Marital Status | Unknown | + + + | Baptist Affiliation | Unknown | + + + | Race | Unknown | + + + | Ethnic Group | Unknown | + + + Author + + + | Author | [facility] | | | and [facility] | + + + | Organization | [facility] | | | and [facility] [...] Team Providers + +------+ + | Care Manager Performance Name | Role | Phone | + [...] + +------+ | MODA | MODA | [id number] | 11/28/19 | [phone] | [address] | PPO | | | FIRST | | 16-Pre | 9 | [address] | | | | CHOICE | | sent | | [place], | | | | | | | | [place] [address] | | +-------+--------+ +--------+ + +------+ + [...] | 1949 | [phone] | [place] [address] | | | ad | | | 1 (Home) | | + +--------+ +--------+ + + Advance Directives + + + + + | Type | Date Recorded | Patient | Explanation | | | | Enterprise Security Architect | | + + + + + | Power of | | | | | It Auditor | | | | + + + + + | Advance | | | | | Directive | | | | + + + + +
--- OUTSIDE RECORDS SUMMARY | ~2020-04-19 | XMS | Encounter Summary ---
Demographics + + + | Address | [address] | | | [place] [address] | + + + | Home Phone | | + + + | Preferred Language | Unknown | + + + | Marital Status | Unknown | + + + | Christianity Affiliation | Unknown | + + + | Race | Unknown | + + + | Ethnic Group | Unknown | + + + Author + + + | Author | [facility] | | | and [facility] | + + + | Organization | [facility] | | | and [facility] [...] Team Providers + +------+ + | Care Picker Tender Helper Name | Role | Phone | + [...] | MED CTR EXTERNAL | MD Leah [address] | | | | | IMAGING [address] | [address] | | | | | [address] [place] | [place] [address] | | | | | [place] [address] | | | | | | [phone] | | | +--------+ + + + [...] for this | | | e | 11:30 PM | | procedure are in the | | | | PDT | | results section. | + +--------+ + + + documented in this encounter Results XR Ankle Left 3 + Vw (05/26/2017 11:30 PM PDT) + + | Specimen | [...]
--- OUTSIDE RECORDS SUMMARY | ~2020-04-19 | XMS | Encounter Summary ---
Demographics + + + | Address | [address] | | | [place] [address] | + + + | Home Phone | | + + + | Preferred Language | Unknown | + + + | Marital Status | Unknown | + + + | Jainism Affiliation | Unknown | + + + | Race | Unknown | + + + | Ethnic Group | Unknown | + + + Author + + + | Author | [facility] | | | and Raghuana | + + + | Organization | [facility] | | | and [...] Team Providers + +------+ + | Care Personal Property Assessor Name | Role | Phone | + +------+ + | Haroldo Davis MD | PCP | | + +------+ + Encounter Details +--------+ + + + + | Date | Type | Department | Care Team | Description | +--------+ + + + + | 05/28/ | Hospital | [facility] | Mehran Michele, | Pain; Ankle | | 2017 - | Encounter | [facility] [address] | [address] | dislocation, left, | | | | [address] | [place] [address] | initial encounter; | | 06/01/ | | [place], [place] | [phone] | Closed fracture of | | 2017 | | [address] | | left ankle, initial | | | | [phone] | | encounter | +--------+ + + [...] Date of Service: 06/01/17 0851 Status: Signed Professor Of Family Medicine: Erasto Piña MD (Physician) [facility] Service: Hospitalist Physician Discharge Summary Patient ID: Katelynn Hidalgo [id number] y.o. 1950 Admit date: 05/28/2017 Discharge [...] mg t.i.d., Cytomel 25 mcg q. a.m., Silas 300 mg p.o. at bedtime, and Geodon [...] retention status post Nevarez catheter by urology. Was discontinued and patient has been voiding well Condition at discharge: stable as dictated above Primary discharge diagnosis: Left ankle fracture Disposition: *SNF Follow up: Haroldo Davis MD [address] [place] [address] Darci Pedraza MD [address] [facility] [address] Schedule an appointment as soon as possible for a visit in 1 week Dictation and thermograph operator or software, digitalbox, used which may contain error for similar [...] - ORIF; Surgeon: Darci Pedraza MD; Location: [facility] MA[facility] OR; Ser vice: Orthopedics; Laterality: Left; [...] cortical type screws there appears to be mu-ism of the ankle mortise. Talar dome appears [...] Paulo Gilman PTA Service: (none) Author Type: Glove Pairer Filed: 06/01/17 1119 Date of Service: 06/01/171115 Status: Signed Professor Of Family Medicine: Paulo Gilman PTA (Glove Pairer) 06/01/171115 PT Last Visit PT Received On [...] Management by Kristy Renee RN at 06/01/17 1052 Author: Kristy Renee RN Service: (none) Author Type: Registered Nurse Filed: 06/01/17 1052 Date of Service: 06/01/17 1054 Status: Addendum Professor Of Family Medicine: Kristy Renee RN (Registered Nurse) Related Notes: Original Note by Kristy Renee RN (Registered Nurse) filed at 06/01/17 09 33 0931: Pt is medically ready for d/c today and has been medically accepted at [facility]. Called Arturo, Dairy Manager at [facility] in [place] and left message to arrange transportation. Awaiting return phone call. 1015: Received c/b from Arturo at [facility]. [facility] transport van can pick pt up between 11:30 and 12:00. Disposition: [facility] Transportation: [facility] transport van All orders, signed AVS, and [...] Date of Service: 05/31/17 112 Status: Signed Professor Of Family Medicine: Erasto Piña MD (Physician) [facility] Service: Hospitalist Progress Note Hospital Day: [...] mg t.i.d., Cytomel 25 mcg q. a.m., Silas 300 mg p.o. at bedtime, and Geodon [...] tomorrow. Code Status: Full Code Dictation and thermograph operator or software, digitalbox, used which may contain error for similar [...] Date of Service: 05/31/17 1015 Status: Signed Professor Of Family Medicine: Marsha Cannon PT (Physical Therapist) 05/31/17 1015 PT Last Visit PT Received On 05/31/17 Reason for Treatment LE fracture (L trimalleolar fx 2/2 fall, s/p ORIF) Requires PT Follow Up Yes Follow up PT Only? No Assistance Required 1 person Railroad Firer Needed No Precautions LE Precaution(s) LLE Precautions/WB [...] Author: ZULEYMA Nunes Service: (none) Author Type: Check Writer Filed: 05/30/17 1610 Date of Service: 05/30/17 1608 Status: Signed Professor Of Family Medicine: ZULEYMA Nunes (Check Writer) 05/30/17 1600 Discharge Planning Evaluation Admitting Diagnosis left ankle dislocation Anticipated Disposition Facility Type residential [facility] Other (comment) ([facility]) Pt received email from Asher AMOR who states Sammyjuandasia Vinnie, Admissions at [facility] ([phone] ph) who states they have medically accepted Pt. Unf ortunately, Pt will need provide her own transportation, as the facility van is not operatin g on TuesdayMay 31. BRANCH MANAGER p/c left msg with Arturo [place], Admissions at [facility] ([phone] ph) regarding acceptance of Pt. DCP: [facility] JANEL BROWN, Cribber [phone] cell onver judith Transaction, Provider Unknown - 05/30/2017 3:30 PM PDT Therapy Progress Note by Marsha Cannon PT at 05/30/17 1530 Author: Marsha Cannon PT Service: (none) Author Type: Physical Therapist Filed: 05/30/17 1605 Date of Service: 05/30/17 1530 Status: Signed Professor Of Family Medicine: Marsha Cannon PT (Physical Therapist) 05/30/17 1530 PT Last Visit PT Received On 05/30/17 Reason for Treatment LE fracture (L trimalleolar fx 2/2 fall, s/p ORIF) Requires PT Follow Up Yes Follow up PT Only? No Assistance Required 1 person Railroad Firer Needed No Precautions LE Precaution(s) LLE Precautions/WB [...] Service: (none) Author Type: Physician Filed: 05/30/17 1749 Date of Service: 05/30/17 122 Status: Addendum Professor Of Family Medicine: Erasto Piña MD (Physician) Related Notes: Original Note by Erasto Piña MD (Physician) filed at 05/30/17 1226 [facility] Service: Hospitalist Progress Note Hospital Day: [...] mg t.i.d., Cytomel 25 mcg q. a.m., Silas 300 mg p.o. at bedtime, and Geodon [...] above. Code Status: Full Code Dictation and thermograph operator or software, digitalbox, used which may contain error for similar [...] 05/30/1752 Date of Service: 05/30/17948 Status: Signed Professor Of Family Medicine: Darci Pedraza MD (Physician) [facility] Service: Orthopedic Surgery Progress Note Hospital [...] | BMI 29.63 kg/m2 | SpO2 91% {EXTENDEDVITALS:25228 Physical Exam Ortho Exam splint intact. Calves [...] 1101 Date of Service: 05/30/1715 Status: Signed Professor Of Family Medicine: Marsha Cannon PT (Physical Therapist) 05/30/17 0815 PT Last Visit PT Received On 05/30/17 Reason for Treatment LE fracture (L trimalleolar fx 2/2 fall, s/p ORIF) Requires PT Follow Up Yes Follow up PT Only? No Focus for Next Treatment Transfer Technique (gait training) Assistance Required 1 person Railroad Firer Needed No Precautions LE Precaution(s) LLE Precautions/WB [...] 05/30/17638 Date of Service: 05/30/17638 Status: Signed Professor Of Family Medicine: Elma Silver RN (Registered Nurse) 24 hour chart check complete Elma Silver, RN Solomon Hutchison MD - 05/29/2017 9:05 PM PDTFormatting of this note might be different from the o riginal. Progress Notes by Solomon Martinez MD at 05/29/172104 Author: Solomon Martinez MD Service: Urology Author Type: Physician Filed: 07/25/17 1312 Date of Service: 05/29/172104 Status: Signed Professor Of Family Medicine: Solomon Martinez MD (Physician) Related Notes: Original Note by Solomon Martinez MD (Physician) filed at 07/24/172201 [facility] Service: Urology Progress Note Hospital Day: LOS: 1 day Post-Op Day: 1 Day Post-Op SUBJECTIVE Patient Summary: Events Overnight: This 67-year-old wonderful lady had undergone catheter placement fo r urinary retention and difficulty by nursing staff to place the catheter. [facility] and learned that [...] cortical type screws there appears to be mu-ism of the ankle mortise. Talar dome appears [...] I placed a Nevarez catheter at the [facility]. The patient had somewhat of a [...] Author: ZULEYMA Ivory Service: (none) Author Type: Check Writer Filed: 05/29/17 1532 Date of Service: 05/29/17 1528 Status: Signed Professor Of Family Medicine: ZULEYMA Ivory (Check Writer) 05/29/17 1526 Discharge Planning Evaluation Admitting Diagnosis [...] to falling la st week. Power of Rn Procedures No Anticipated Discharge Plan Post Acute Care Needs Other (comment) (SNF) Plan communicated to patient/family Yes Resources Transportation issues Yes (Pt may not have transportation to [place]) Name of Pharmacy [place] [facility] Previous home [...] signed and placed in chart. Pt prefers [facility] in [place] for SNF placem ent. If [facility] is not an option, she would like a SNF and has no preference of faci lity. CM will send referrals to [facility] and all SNFs. Patient's PCP is: HAROLDO [...] from the original. Progress Notes by Naseem Veronica PA-C at 05/29/17 1050 Author: Naseem Veronica PA-C Service: Orthopedic Surgery Author Type: Physician Chencho mitchell - Certified Filed: 05/29/17 1052 Date of Service: 05/29/17 105 Status: Signed Professor Of Family Medicine: Naseem Veronica PA-C (Physician Steam Power Plant Operator - Certified) [facility] Service: Orthopedic Surgery Progress Note Hospital [...] 05/29/17905 Date of Service: 05/29/17829 Status: Signed Professor Of Family Medicine: Erasto Piña MD (Physician) [facility] Service: Hospitalist Progress Note Hospital Day: [...] mg t.i.d., Cytomel 25 mcg q. a.m., Silas 300 mg p.o. at bedtime, and Geodon [...] eval. Code Status: Full Code Dictation and thermograph operator or software, digitalbox, used which may contain error for similar [...] 1003 Date of Service: 05/29/17714 Status: Signed Professor Of Family Medicine: Marsha Cannon PT (Physical Therapist) 05/29/17714 PT Last Visit PT Received On 05/29/17 Reason for Treatment LE fracture (L trimalleolar fx 2/2 fall, s/p ORIF) Requires PT Follow Up Yes Follow up PT Only? No Focus for Next Treatment (gait and/or w/c mobility) PT Eval/Reassessment Date 05/29/17 Assistance Required 1 person Railroad Firer Needed No Home Environment Type of Home Home one story Home Exterior Layout 1-3 steps;Rail on R ascending (3-4 SEAN) Home Interior Layout Lives on main level with bedroom/bathroom Bathroom Shower/Tub Tub/shower unit Bathroom Toilet Standard Bathroom Equipment (none) Bathroom Accessibility Accessible via wheelchair Home Equipment None Prior Function Level of [place] Independent with functional mobility;Independent with ADLs;Independe nt [...] Eval/Reassessment Date 05/29/17 Assistance Required 1 person Railroad Firer Needed No Precautions LE Precaution(s) LLE Precautions/WB LLE NWB Other Comments Comments Pt is a 67 y.o. female who presented to [facility] secondary to L ankle pain from recent [...] mobility prior to return home. Moderate - 08097 High - 91419 History 3 or more personal factors &/or comorbidities Examination 3 elements Clinical Presentation evolving Clinical Decision Making Complexity: Moderate 77842 onver judith Transaction, Provider Unknown - 05/29/2017 7:05 AM PDT Nurse Progress Note by Eula Carey RN at 05/29/17704 Author: Eula Carey RN Service: (none) Author Type: Registered Nurse Filed: 05/29/17710 Date of Service: 05/29/17704 Status: Signed Professor Of Family Medicine: Eula Carey RN (Registered Nurse) Dr. Piña notified of abnormal EKG result with prolonged QT. Telemetry ordered, tele notifie d of order. Fabby Carey RN onver judith Transaction, Provider Unknown - 05/28/2017 7:02 PM PDT Nurse Progress Note by Kosta Garcia RN at 05/28/171901 Author: Kosta Garcia RN Service: Anesthesiology Author Type: Registered Nicole se Filed: 05/28/171907 Date of Service: 05/28/171901 Status: Addendum Professor Of Family Medicine: Kosta Garcia RN (Registered Nurse) Related Notes: [...] a nd bear down. 1829> Attempt with ELECTRIC TRAIN DRIVERROJAS Baker with QDAY. Still unable to get urine return. Patient then stated she was voiding. Voided small amount and states ow she doesn't need to void anymore. Bladder scanned for [address] after void. Call to Dr Susan molina is in OR in [facility] will call when c ompleted. 1844> Dr Martinez called and made aware of patient case. Is on way in to see patient. Warm pa cks applied and medicated PRN for pain in foot. 1899> Vianney XIE here to attempt one more placement of nevarez with 12 malaysian nevarez. Again unab le to place nevarez [...] 1417 Date of Service: 05/28/171415 Status: Signed Professor Of Family Medicine: Margaret Thakur RN (Registered Nurse) Patient off [...] + + documented in this encounter Results Silas Level (05/30/2017 8:37 AM PDT) + + [...] + + + + + + | Silas | 0.23 (L)Comment: Testing | 0.6 - 1.2 | EXTERNAL | | | Level | performed at [facility];[address] | mmol/L | LAB | | | | [address] [facility];[place], [place] | | | | | | [address] | | | | + + + [...] + + | Historically converted procedure from [facility] | EXTERNAL LAB | + + + [...] | | | Basophils | performed at [facility], [address] | K/uL | LAB | | | | [address], | | | | | | [place] [address] | | | | + + + [...] EXTERNAL | | | | performed at [facility], [address] | | LAB | | | | [place] [place], | | | | | | [place] [address] | | | | + + + [...] EXTERNAL | | | | performed at [facility], [address] | | LAB | | | | [place] [place], | | | | | | [place] [address] | | | | + + + [...] [place], | | | | | | [place] [address] | | | | + + + [...] + + | Historically converted procedure from [facility] | EXTERNAL LAB | + + + [...] | | | | | performed at [facility];[address] | | | | | | [address];[place], [place] | | | | | | [address] | | | | + + + [...] | | | | | | at [facility], [address] | | | | | | [place] [place], | | | | | | [place] [address] | | | | + + + [...] | | | | | [place] [address] | | | | + + + [...] EXTERNAL | | | | performed at [facility], [address] | | LAB | | | | [place], | | | | | | [place] [address] | | | | + + + [...] | | | | | | at [facility], [address] | | | | | | [place], | | | | | | [place] [address] | | | | + + + [...] - 1.030 | EXTERNAL | | | [place], | | | LAB | | | [...] | | | Urine | performed at [facility];[address] | | LAB | | | | [place] Rojas;[place] | | | | | | [address] | | | | + + + [...] | | screws there appears to be mu-ism of the ankle mortise. Talar | | [...] screws | | there appears to be mu-ism of the ankle mortise. Talar dome appears [...] cortical type screws there appears to be mu-ism of the ankle morti se. Talar dome [...] + + | Historically converted procedure from [facility] environment | EXTERNAL LAB | + [...] Conversion - 07/12/2019 8:04 AM PDT KATELYNN NICKJacques1950US ABDOMEN | | LIMITED05/28/2017 9:21 AM HISTORY: [...] at | | | | | | [facility], [address] | | | | | | [place] | | | | | | [address] | | | | + + + [...] | | | | | performed at [facility];[address] | | | | | | [address];[place], [place] | | | | | | [address] | | | | + + + [...] | | | Basophils | performed at [facility];[address] | K/uL | LAB | | | | [address];[place] | | | | | | [address] | | | | + + + [...] | | EN LEVEL | performed at [facility];[address] | ug/mL | LAB | | | | [address];[place], [place] | | | | | | [address] | | | | + + + [...] | | | | | | at [facility] [address] | | | | | | [address];[place] [address] | | | | + + + [...] | | | | | ONLY, -COMPUTER (845), | | | | | | newspaper editor managing Elva Resendiz | | | | | | (18) on 05/30/2017 6:26:26 | | | | | | AM | | | | + + + + + + + + | Specimen | + + | | + + + + + | Narrative | Performed At | + + + | Historically converted procedure from [facility] environment | EXTERNAL LAB | + [...]
--- OUTSIDE RECORDS SUMMARY | ~2020-04-19 | XMS | Encounter Summary ---
Demographics + + + | Address | [address] | | | [place] [address] | + + + | Home Phone | | + + + | Preferred Language | Unknown | + + + | Marital Status | Unknown | + + + | Faith Affiliation | Unknown | + + + | Race | Unknown | + + + | Ethnic Group | Unknown | + + + Author + + + | Author | [facility] | | | and Raghuana | + + + | Organization | [facility] | | | and Raghuana [...] Team Providers + +------+ + | Care Fiscal Services Manager Name | Role | Phone | [...] | MED CTR EXTERNAL | MD Leah [address] | | | | | IMAGING [address] | [address] | | | | | [address] [place] | [place] [address] | | | | | [place] [address] | | | | | | [phone] | | | +--------+ + + + [...] for this | | | e | 10:25 PM | | procedure are in the | | | | PDT | | results section. | + +--------+ + + + documented in this encounter Results XR Ankle Left 3 + Vw (05/26/2017 10:25 PM PDT) + + | Specimen | [...]
--- OUTSIDE RECORDS SUMMARY | ~2020-04-19 | XMS | Clinical Summary ---
Demographics + + + | Address | [address] | | | [place] [address] | + + + | Home Phone | | + + + | Preferred Language | Unknown | + + + | Marital Status | Single | + + + | Voodoo Affiliation | Unknown | + + + | Race | Unknown | + + + | Ethnic Group | Unknown | + + + Author + + + | Author | [facility] (Historical as of | | | 07-14-19) | + + + | Organization | [facility] (Historical as of | | | 07-14-19) [...] Team Providers + +------+ + | Care Cupola Melter Helper Name | Role | Phone | [...] +------+-------+ + | MEDICARE | MEDICA | [id number] | | | [address] | | | RE | | | | [place] [address] | | | IP-OP | | | | | + +--------+ +------+-------+ + | [employer] | MUTUAL | [id number] | | | | | | OF | | | | | | | CRAIG | | | | | + +--------+ [...] | 1949 | +- | [place] [address] | | | ad | | | 8291 | | + +--------+ +--------+ + + | KATELYNN HIDALGO | Skille | Self [birth year] Home: | [address] | | | d | | 1949 | +- | [place] [address] | | | Nursin | | | 8291 | | | | g | | | | | | | Facili | | | | | | | ty | | | | | + +--------+ +--------+ + +
--- OUTSIDE RECORDS SUMMARY | ~2020-04-19 | XMS | Clinical Summary ---
Demographics + + + | Address | [address] | | | [place] [address] | + + + | Home Phone | | + + + | Preferred Language | Unknown | + + + | Marital Status | Unknown | + + + | Muslim Affiliation | Unknown | + + + | Race | Unknown | + + + | Ethnic Group | Unknown | + + + Author + + + | Author | [facility] | | | and Raghuana | + + + | Organization | [facility] | | | and Raghuana [...] Team Providers + +------+ + | Care Goodwill Ambassador Name | Role | Phone | + [...] + +------+ | MODA | MODA | [id number] | 11/28/19 | [phone] | [address] | PPO | | | FIRST | | 16-Pre | 9 | [address] | | | | CHOICE | | sent | | [place], | | | | | | | | [place] [address] | | +-------+--------+ +--------+ + +------+ + [...] | 1949 | [phone] | [place] [address] | | | ad | | | 1 (Home) | | + +--------+ +--------+ + + Advance Directives + + + + + | Type | Date Recorded | Patient | Explanation | | | | Hr Administrator | | + + + + + | Power of | | | | | Raise Drill Operator | | | | + + + + + | Advance | | | | | Directive | | | | + + + + +
--- OUTSIDE RECORDS SUMMARY | ~2020-04-19 | XMS | Encounter Summary ---
Demographics + + + | Address | [address] | | | [place] [address] | + + + | Home Phone | | + + + | Preferred Language | Unknown | + + + | Marital Status | Unknown | + + + | Pentecostal Affiliation | Unknown | + + + | Race | Unknown | + + + | Ethnic Group | Unknown | + + + Author + + + | Author | [facility] | | | and Raghuana | + + + | Organization | [facility] | | | and [...] Team Providers + +------+ + | Care Broadcast Engineer Name | Role | Phone | + [...] | | [address] | [address], | | | | | [facility] [place] | [place] [address] | | | | | [address] | [phone] | | | | | [phone] | | | +--------+ + + + [...]
--- OUTSIDE RECORDS SUMMARY | ~2020-04-19 | XMS | Encounter Summary ---
Demographics + + + | Address | [address] | | | [place] [address] | + + + | Home Phone | | + + + | Preferred Language | Unknown | + + + | Marital Status | Unknown | + + + | Episcopalian Affiliation | Unknown | + + + | Race | Unknown | + + + | Ethnic Group | Unknown | + + + Author + + + | Author | [facility] | | | and Raghuana | + + + | Organization | [facility] | | | and Raghuana [...] Team Providers + +------+ + | Care Associate Brand Manager Name | Role | Phone | [...] | MED CTR EXTERNAL | MD [address] | | | | | IMAGING [address] | [address] | | | | | [address] [place] | [place] [address] | | | | | [place] [address] | | | | | | [phone] | | | +--------+ + + + [...]
--- OUTSIDE RECORDS SUMMARY | ~2020-04-19 | XMS | Encounter Summary ---
Demographics + + + | Address | [address] | | | [place] [address] | + + + | Home Phone | | + + + | Preferred Language | Unknown | + + + | Marital Status | Unknown | + + + | Gnosticism Affiliation | Unknown | + + + | Race | Unknown | + + + | Ethnic Group | Unknown | + + + Author + + + | Author | [facility] | | | and Raghu[place] | + + + | Organization | [facility] | | | and [...] Team Providers + +------+ + | Care Typewriter Mechanic Name | Role | Phone | + [...] | | [address] | MD [address] | | | | | [address] | [address], | | | | | [facility] | [place] [address] | | | | | [address] | [phone] | | | | | [phone] | | | +--------+ + + + [...]
--- OUTSIDE RECORDS SUMMARY | ~2020-04-19 | XMS | Encounter Summary ---
Demographics + + + | Address | [address] | | | [place] [address] | + + + | Home Phone | | + + + | Preferred Language | Unknown | + + + | Marital Status | Unknown | + + + | Anabaptist Affiliation | Unknown | + + + | Race | Unknown | + + + | Ethnic Group | Unknown | + + + Author + + + | Author | [facility] | | | and Raghuana | + + + | Organization | [facility] | | | and [facility] [...] Team Providers + +------+ + | Care Administrative Support Clerk Name | Role | Phone | + +------+ + | Palomo Gibbons MD | PCP | | + +------+ + Reason for Visit + + + | Reason | Comments | + + + | Procedure | EMG/NCS--Neuropathy of Left Ulnar Wrist | + + + Evaluate & Treat (Routine) +--------+--------+ + + + + | Status | Reason | Specialty | Diagnoses / | Referred By | Referred To | | | | | Procedures | Contact | Contact | +--------+--------+ + + + + | Closed | | Physical | Diagnoses | Edwige, | Diana, | | | | Medicine and | Disturbance | Palomo Rockwell, | MD Lalito | | | | Rehabilitatio | of skin | [address] | [address] | | | | n | sensation | [address] | [address] | | | | | Lesion of | [place], | [place], [place] | | | | | ulnar nerve, | [place] [address] | [address] Phone: | | | | | left upper | Phone: | [phone] | | | | | limb | [phone] | Fax: | | | | | Procedures | Fax: | [phone] | | | | | [place] MOTOR | [phone] | | | | | | &/SENS 1-2 | | | | | | | NRV CNDJ | | | | | | | PRECONF | | | | | | | [place]TR[place] LIMB | | | | | | | [place] MOTOR | | | | | | | &/SENS 3-4 | | | | | | | NRV CNDJ | | | | | | | PRECONF | | | | | | | [place] | | | | | | | [place] MOTOR | | | | | | | &/SENS 7-8 | | | | | | | NRV CNDJ | | | | | | | PRECONF | | | | | | | [place] LIMB | | | | | | | AK NEEDLE | | | | | | | EMG EA | | | | | | | EXTREMTY | | | | | | | W/PARASPINL | | | | | | | AREA | | | | | | | COMPLETE | | | +--------+--------+ + + + + Encounter Details +--------+ + + + + | Date | Type | Department | Care Team | Description | +--------+ + + + + | 07/28/ | Procedure | [facility] | Lalito Ortiz, | Left arm numbness | | 2015 | visit | PHYSIATRY [address] | MD Debora ANSARI | (Primary Dx); | | | | [address] | [address] | Chronic neck pain; | | | | [place], [place] | [place] [address] | Ulnar neuropathy of | | | | [address] | [phone] | left upper | | | | [phone] | | extremity; Cervical | | | | | | radiculopathy | +--------+ + + + + Social [...] + + + | Blood Pressure | 161/86 | 07/28/2016 12:58 PM | | | | | PDT | | + + + + + | Pulse | 64 | 07/28/2016 12:58 PM | | | | | PDT | | + + + + + | Temperature | - | - | | + + + + + | Respiratory Rate | 20 | 07/28/2016 12:58 PM | | | | | PDT | | + + + + + | Oxygen Saturation | - | - | | + + + + + | Inhaled Oxygen | - | - | | | Concentration | | | | + + + + + | Weight | 65.9 kg (145 lb 4.8 | 07/28/2016 12:58 PM | | | | oz) | PDT | | + + + + + | Height | 157.5 cm (5' 2") | 07/28/2016 12:58 PM | | | | | PDT | | + + + + + | Body Mass Index | 26.58 | 07/28/2016 12:58 PM | | | | | PDT | | + + + + + documented in this encounter Plan of Treatment Not on filedocumented as of this encounter Procedures + +--------+ + + + | Procedure Name | Priori | Date/Time | Associated Diagnosis | Comments | | | ty | | | | + +--------+ + + + | EMG STUDY | Routin | 07/29/2016 | Left arm numbness | Results for this | | | e | 1:14 PM | Chronic neck pain | procedure are in the | | | | PDT | | results section. | + +--------+ + + + documented in this encounter Results EMG Study (07/29/2016 1:14 PM PDT) + + + | Narrative | Performed At | + + + | Lalito Ortiz MD 07/29/2016 13:14 [facility] | | | [facility] [address] [place] [id number] Ph: | | | Test Date: 07/27/2016 | | | Patient Name: Anat Ramos : 1950 Physician: Gilbert | | | MD Diana MR #: [id number] Sex: Female Referring Physician: | | | Palomo Gibbons MD HISTORY: Ms. Arriaga is a 66 year-old | | | left-handed referred for evaluation of a left ulnar neuropathy. | | | Patient reports a long history of numbness of her left small and | | | index fingers, which has increased in frequency and intensity in the | | | past few months. She reports a history of neck pain but no clear | | | radicular symptoms. Denies any weakness. On exam there is no | | | atrophy, no sensory difference between ulnar/radial portion of index | | | finger, reduced strength with finger abduction (4+/5), but normal | | | APB and EIP strength. Anti Sensory Summary Table Site NR Peak | | | (ms) Norm Peak (ms) P-T Amp ( V) Norm P-T Amp Site1 Site2 Delta-P | | | (ms) Dist (cm) Faustino (m/s) Norm Faustino (m/s) Left Med Ante Brach Cutan | | | Anti Sensory (Med Forearm) Elbow 2.2 17.8 Elbow Med Forearm | | | 2.2 10.0 45 Right Med Ante Brach Cutan Anti Sensory (Med Forearm) | | | Elbow 2.2 19.6 Elbow Med Forearm 2.2 0.0 Site 2 | | | 2.2 12.9 Left Median Anti Sensory (2nd Digit) Wrist | | | 3.3 <3.6 42.5 >10 Wrist 2nd Digit 3.3 14.0 42 >39 Left Ulnar | | | Anti Sensory (5th Digit) Wrist 3.0 <3.7 *12.1 >15.0 Wrist 5th | | | Digit 3.0 14.0 47 >38 B Elbow 3.0 12.2 B Elbow Wrist 0.0 | | | 0.0 >47 Right Ulnar Anti Sensory (5th Digit) Wrist 3.0 <3.7 | | | 20.3 >15.0 Wrist 5th Digit 3.0 14.0 47 >38 Motor Summary Table | | | Site NR Onset (ms) Norm Onset (ms) O-P Amp (mV) Norm O-P Amp Site1 | | | Site2 Delta-0 (ms) Dist (cm) Faustino (m/s) Norm Faustino (m/s) Left Median | | | Motor (Abd Poll Brev) Wrist 2.9 <4.2 5.5 >5 Elbow Wrist 3.3 | | | 22.0 67 >50 Elbow 6.2 5.3 Left Ulnar Motor Run | | | #1 (Abd Dig Minimi) Wrist 2.7 <4.2 10.2 >3 B Elbow Wrist 2.8 | | | 15.0 54 >53 B Elbow 5.5 10.9 A Elbow B Elbow 1.6 9.0 56 >53 | | | A Elbow 7.1 10.4 Left Ulnar Motor Run #2 (FDI) | | | Wrist 3.8 <4.2 9.9 >3 B Elbow Wrist 2.8 15.0 54 >53 B Elbow | | | 6.6 9.6 A Elbow B Elbow 1.7 9.0 53 >53 A Elbow 8.3 | | | 9.9 EMG Side Muscle Nerve Root Ins Act Fibs Psw | | | Amp Dur Poly Recrt Int Pat Comment Left Deltoid Axillary C5-6 Nml | | | Nml Nml Nml Nml 0 Nml Nml Left Biceps Musculocut C5-6 Nml Nml Nml | | | Nml Nml 0 Nml Nml Left Triceps Radial C6-7-8 Nml Nml Nml Nml Nml 0 | | | Nml Nml Left PronatorTeres Median C6-7 Nml Nml Nml Nml Nml 0 Nml | | | Nml Left FDP Ulnar C8-T1 Nml Nml Nml Nml Nml 0 Nml Nml Left | | | FCU Ulnar C7-8 Nml Nml Nml Nml Nml 0 Nml Nml Left 1stDorInt Ulnar | | | C8-T1 Nml Nml Nml Nml Nml 0 Nml Nml Fasic Left ADM Ulnar C8-T1 Nml | | | Nml Nml Nml *>12ms 0 *Reduced Nml Left ExtIndicis Radial (Post | | | Int) C7-8 Nml Nml Nml *Incr *>12ms 0 *Reduced Nml Results: | | | 1. Left and right medial anti-brachial cutaneous SNAPs were normal | | | with no [id number] difference. 2. Left median and right ulnar SNAPs | | | were normal. 3. Right ulnar SNAP demonstrated normal peak latency | | | and mildly reduced amplitude. 4. Left median, left ulnar-ADM, and | | | left ulnar-FDI CMAPs were normal. 5. Monopolar needle EMG of the | | | selected muscles in the left upper extremity demonstrated normal | | | insertional activity and a few fasciculations in the first dorsal | | | interossei. On activation, there was reduced recruitment of | | | increased duration motor units in the abductor digiti minimi and | | | extensor indicis; and normal recruitment of normal morphology motor | | | units in all other muscles tested. IMPRESSION: This is a | | | technically difficult and abnormal study. The low amplitude left | | | ulnar SNAP is of unknown significance as the ulnar motor studies | | | were normal. This could represent a mild non-localizable ulnar | | | neuropathy. Another possibility, though less likely is if there is | | | a far lateral C8 radiculopathy there can be involvement of the | | | dorsal root ganglion which could also cause these findings, clinical | | | correlation recommended. The EMG findings are suggestive of | | | chronic left C8 root dysfunction (e.g. chronic radiculopathy), but | | | no evidence of active denervation. Since there was involvement of | | | the extensor indicis and the medial antibrachial cutaneous SNAP | | | | | | s were normal and symmetric, a lower trunk plexopaty seems less | | | likely. Since these findings are chronic it is not clear if they | | | are of clinical significance. There is no electrodiagnostic | | | evidence of a left median mononeuropathy at the wrist (i.e carpal | | | tunnel syndrome). Thank you for allowing me to perform | | | neurodiagnostic testing on your patient. If you have any further | | | questions or comments, please do not hesitate to call. | | | Lalito Ortiz MD Diplomate, [place] | | | Board of Physical Medicine and Rehabilitation. | | | | | + + + documented in this encounter Visit Diagnoses + + | Diagnosis | + + | Left arm numbness - Primary Disturbance of skin sensation | + + | Chronic neck pain Cervicalgia | + + | Ulnar neuropathy of left upper extremity Lesion of ulnar nerve | + + | Cervical radiculopathy Brachial neuritis or radiculitis nos | + + documented in this encounter
--- OUTSIDE RECORDS SUMMARY | ~2020-04-19 | XMS | Encounter Summary ---
Demographics + + + | Address | [address] | | | [place] [address] | + + + | Home Phone | | + + + | Preferred Language | Unknown | + + + | Marital Status | Unknown | + + + | Congregational Affiliation | Unknown | + + + | Race | Unknown | + + + | Ethnic Group | Unknown | + + + Author + + + | Author | [facility] | | | and [facility]hu[facility] | + + + | Organization | [facility] | | | and [facility]hu[facility] [...] Team Providers + +------+ + | Care Clinical Team Manager Name | Role | Phone | [...] | [facility] | MD Leah [address] | | | | | IMAGING [address] | [address] [place] | | | | | [address] [place] | [place] [address] | | | | | [place] [address] | | | | | | [phone] | | | +--------+ + + + [...]
--- OUTSIDE RECORDS SUMMARY | ~2020-04-19 | XMS | Encounter Summary ---
Demographics + + + | Address | [address] | | | [place] [address] | + + + | Home Phone [...] + + + | Author | [facility] | | | and Raghuana | + + + | Organization | [facility] | | | and [...] Team Providers + +------+ + | Care Physician Coding Specialist Name | Role | Phone | + +------+ + | Haroldo Davis MD | PCP | | + +------+ + Encounter Details +--------+ + + + + | Date | Type | Department | Care Team | Description | +--------+ + + + + | 05/28/ | Hospital | [facility] | Mehran Michele, | Pain; Ankle | | 2017 - | Encounter | [facility] [address] | [address] | dislocation, left, | | | | JOYCE [address]JAS | [place] [address] | initial encounter; | | 06/01/ | | [place], [place] | [phone] | Closed fracture of | | 2017 | | [address] | | left ankle, initial | | | | [phone] | | encounter | +--------+ + + [...] Date of Service: 06/01/17 0851 Status: Signed Watershed Program Manager: Erasto Piña MD (Physician) [facility] Service: Hospitalist Physician Discharge Summary Patient ID: Katelynn Hidalgo [id number] y.o. 1950 Admit date: 05/28/2017 Discharge [...] mg t.i.d., Cytomel 25 mcg q. a.m., [place] 300 mg p.o. at bedtime, and Geodon [...] Haroldo Davis MD [address] [place] [address] Darci Pedraza MD [address] [facility] [id number] Schedule an appointment as soon as possible for a visit in 1 week Dictation and tubing supervisor or software, NextCloud, used which may contain error for similar [...] - ORIF; Surgeon: Darci Pedraza MD; Location: [facility] MAIN OR; Ser vice: Orthopedics; Laterality: Left; [...] cortical type screws there appears to be christianity of the ankle mortise. Talar dome appears [...] Paulo Gilman PTA Service: (none) Author Type: Radioisotope Technologist Filed: 06/01/17 1119 Date of Service: 06/01/171115 Status: Signed Watershed Program Manager: Paulo Gilman PTA (Radioisotope Technologist) 06/01/171115 PT Last Visit PT Received On [...] Management by Kristy Renee RN at 06/01/17 1055 Author: Kristy Renee RN Service: (none) Author Type: Registered Nurse Filed: 06/01/17 1051 Date of Service: 06/01/17 1054 Status: Addendum Watershed Program Manager: Kristy Renee RN (Registered Nurse) Related Notes: Original Note by Kristy Renee RN (Registered Nurse) filed at 06/01/17 09 33 0931: Pt is medically ready for d/c today and has been medically accepted at [facility]. Called Arturo, Automatic Wheel Line Operator at [facility] in [place] and left message to arrange transportation. Awaiting return phone call. 1015: Received c/b from Arturo at [facility]. [facility] transport van can pick pt up between 11:30 and 12:00. Disposition: [facility] Transportation: [facility] All orders, signed AVS, [...] Date of Service: 05/31/17 112 Status: Signed Watershed Program Manager: Erasto Piña MD (Physician) [facility] Service: Hospitalist Progress Note Hospital Day: LOS: [...] mg t.i.d., Cytomel 25 mcg q. a.m., [place] 300 mg p.o. at bedtime, and Geodon [...] tomorrow. Code Status: Full Code Dictation and tubing supervisor or software, NextCloud, used which may contain error for similar [...] Date of Service: 05/31/17 1015 Status: Signed Watershed Program Manager: Marsha Cannon PT (Physical Therapist) 05/31/17 1015 PT Last Visit PT Received On 05/31/17 Reason for Treatment LE fracture (L trimalleolar fx 2/2 fall, s/p ORIF) Requires PT Follow Up Yes Follow up PT Only? No Assistance Required 1 person Adjunct Psychology Faculty Member Needed No Precautions LE Precaution(s) LLE Precautions/WB [...] Author: ZULEYMA Nunes Service: (none) Author Type: Plan Manager Filed: 05/30/17 1610 Date of Service: 05/30/17 1608 Status: Signed Watershed Program Manager: ZULEYMA Nunes (Plan Manager) 05/30/17 1600 Discharge Planning Evaluation Admitting Diagnosis left ankle dislocation Anticipated Disposition Facility Type shelter [facility] Custodial [facility] Other (comment) ([facility]) Pt received email from Asher AMOR who states Sammyjuandasia Vinnie, Admissions at [facility] ([phone] ph) who states they have medically accepted Pt. Unf ortunately, Pt will need provide her own transportation, as the facility van is not operatin g on TuesdayMay 31. ENVIRONMENTAL HEALTH SAFETY ENGINEER p/c left msg with Arturo Birmingham, Admissions at [facility] ([phone] ph) regarding acceptance of Pt. DCP: [facility] JANEL BROWN, Campus Security Officer [phone] cell onver judith Transaction, Provider Unknown - 05/30/2017 3:30 PM PDT Therapy Progress Note by Marsha Cannon PT at 05/30/17 1530 Author: Marsha Cannon PT Service: (none) Author Type: Physical Therapist Filed: 05/30/17 1605 Date of Service: 05/30/17 1530 Status: Signed Watershed Program Manager: Masrha Cannon PT (Physical Therapist) 05/30/17 1530 PT Last Visit PT Received On 05/30/17 Reason for Treatment LE fracture (L trimalleolar fx 2/2 fall, s/p ORIF) Requires PT Follow Up Yes Follow up PT Only? No Assistance Required 1 person Adjunct Psychology Faculty Member Needed No Precautions LE Precaution(s) LLE Precautions/WB [...] Service: (none) Author Type: Physician Filed: 05/30/17 4145 Date of Service: 05/30/17 122 Status: Addendum Watershed Program Manager: Erasto Piña MD (Physician) Related Notes: Original Note by Erasto Piña MD (Physician) filed at 05/30/17 1226 [facility] Service: Hospitalist Progress Note Hospital Day: LOS: [...] mg t.i.d., Cytomel 25 mcg q. a.m., [place] 300 mg p.o. at bedtime, and Geodon [...] above. Code Status: Full Code Dictation and tubing supervisor or software, NextCloud, used which may contain error for similar [...] 05/30/1752 Date of Service: 05/30/17948 Status: Signed Watershed Program Manager: Darci Pedraza MD (Physician) [facility] Service: Orthopedic Surgery Progress Note Hospital Day: [...] | BMI 29.63 kg/m2 | SpO2 91% {EXTENDEDVITALS:31889 Physical Exam Ortho Exam splint intact. Calves [...] 1101 Date of Service: 05/30/1715 Status: Signed Watershed Program Manager: Marsha Cannon PT (Physical Therapist) 05/30/17 0815 PT Last Visit PT Received On 05/30/17 Reason for Treatment LE fracture (L trimalleolar fx 2/2 fall, s/p ORIF) Requires PT Follow Up Yes Follow up PT Only? No Focus for Next Treatment Transfer Technique (gait training) Assistance Required 1 person Adjunct Psychology Faculty Member Needed No Precautions LE Precaution(s) LLE Precautions/WB [...] 05/30/17638 Date of Service: 05/30/17638 Status: Signed Watershed Program Manager: Elma Silver RN (Registered Nurse) 24 hour chart check complete Elma Silver, RN Solomon Hutchison MD - 05/29/2017 9:05 PM PDTFormatting of this note might be different from the o riginal. Progress Notes by Solomon Martinez MD at 05/29/172104 Author: Solomon Martinez MD Service: Urology Author Type: Physician Filed: 07/25/17 1312 Date of Service: 05/29/172104 Status: Signed Watershed Program Manager: Solomon Martinez MD (Physician) Related Notes: Original Note by Solomon Martinez MD (Physician) filed at 07/24/172201 [facility] Service: Urology Progress Note Hospital Day: LOS: 1 day Post-Op Day: 1 Day Post-Op SUBJECTIVE Patient Summary: Events Overnight: This 67-year-old wonderful lady had undergone catheter placement fo r urinary retention and difficulty by nursing staff to place the catheter. [facility] and learned that [...] cortical type screws there appears to be christianity of the ankle mortise. Talar dome appears [...] I placed a Nevarez catheter at the [facility] e. The patient had somewhat of [...] Author: ZULEYMA Ivory Service: (none) Author Type: Plan Manager Filed: 05/29/17 1532 Date of Service: 05/29/17 1528 Status: Signed Watershed Program Manager: ZULEYMA Ivory (Plan Manager) 05/29/17 1526 Discharge Planning Evaluation Admitting Diagnosis [...] to falling la st week. Power of Claims Clerk No Anticipated Discharge Plan Post Acute Care Needs Other (comment) (SNF) Plan communicated to patient/family Yes Resources Transportation issues Yes (Pt may not have transportation to [place]) Name of Pharmacy [place] Previous home [...] signed and placed in chart. Pt prefers [facility] in [place] for SNF placem ent. If [facility] is not an option, she would like a SNF and has no preference of faci lity. CM will send referrals to [facility] and all SNFs. Patient's PCP is: HAROLDO [...] Date of Service: 05/29/17 105 Status: Signed Watershed Program Manager: Naseem Veronica PA-C (Physician Railway Track Plant Operator - Certified) [facility] Service: Orthopedic Surgery Progress Note Hospital Day: [...] 05/29/17905 Date of Service: 05/29/17829 Status: Signed Watershed Program Manager: Erasto Piña MD (Physician) [facility] Service: Hospitalist Progress Note Hospital Day: LOS: 1 day Consultants: Treatment Team: Consulting Physician: Darci ePdraza MD Admitting Provider: Mehran Michele MD The [...] mg t.i.d., Cytomel 25 mcg q. a.m., [place] 300 mg p.o. at bedtime, and Geodon [...] eval. Code Status: Full Code Dictation and tubing supervisor or software, NextCloud, used which may contain error for similar [...] 1003 Date of Service: 05/29/17714 Status: Signed Watershed Program Manager: Marsha Cannon PT (Physical Therapist) 05/29/17714 PT Last Visit PT Received On 05/29/17 Reason for Treatment LE fracture (L trimalleolar fx 2/2 fall, s/p ORIF) Requires PT Follow Up Yes Follow up PT Only? No Focus for Next Treatment (gait and/or w/c mobility) PT Eval/Reassessment Date 05/29/17 Assistance Required 1 person Adjunct Psychology Faculty Member Needed No Home Environment Type of Home Home one story Home Exterior Layout 1-3 steps;Rail on R ascending (3-4 SEAN) Home Interior Layout Lives on main level with bedroom/bathroom Bathroom Shower/Tub Tub/shower unit Bathroom Toilet Standard Bathroom Equipment (none) Bathroom Accessibility Accessible via wheelchair Home Equipment None Prior Function Level of Pope Independent with functional mobility;Independent with ADLs;Independe nt [...] Eval/Reassessment Date 05/29/17 Assistance Required 1 person Adjunct Psychology Faculty Member Needed No Precautions LE Precaution(s) LLE Precautions/WB LLE NWB Other Comments Comments Pt is a 67 y.o. female who presented to [facility] secondary to L ankle pain from recent [...] mobility prior to return home. Moderate - 77446 High - 91875 History 3 or more personal factors &/or comorbidities Examination 3 elements Clinical Presentation evolving Clinical Decision Making Complexity: Moderate 95250 onver judith Transaction, Provider Unknown - 05/29/2017 7:05 AM PDT Nurse Progress Note by Eula Carey RN at 05/29/17704 Author: Eula Carey RN Service: (none) Author Type: Registered Nurse Filed: 05/29/17710 Date of Service: 05/29/17704 Status: Signed Watershed Program Manager: Eula Carey RN (Registered Nurse) Dr. Piña notified of abnormal EKG result with prolonged QT. Telemetry ordered, tele notifie d of order. Fabby Carey RN onver judith Transaction, Provider Unknown - 05/28/2017 7:02 PM PDT Nurse Progress Note by Kosta Garcia RN at 05/28/171901 Author: Kosta Garcia RN Service: Anesthesiology Author Type: Registered Nicole se Filed: 05/28/171907 Date of Service: 05/28/171901 Status: Addendum Watershed Program Manager: Kosta Garcia RN (Registered Nurse) Related Notes: [...] a nd bear down. 1829> Attempt with CASE ASSISTANTROJAS Baker with QDAY. Still unable to get urine return. Patient then stated she was voiding. Voided small amount and states ow she doesn't need to void anymore. Bladder scanned for 586 after void. Call to Dr Susan molina is in OR in [facility] will call when c ompleted. 1844> Dr Martinez called and made aware of patient case. Is on way in to see patient. Warm pa cks applied and medicated PRN for pain in foot. 1899> Vianney XIE here to attempt one more placement of nevarez with 12 welsh nevarez. Again unab le to place nevarez [...] 1417 Date of Service: 05/28/171415 Status: Signed Watershed Program Manager: Margaret Thakur RN (Registered Nurse) Patient off [...] + + documented in this encounter Results [place] Level (05/30/2017 8:37 AM PDT) + + [...] + + + + + + | [place] | 0.23 (L)Comment: Testing | 0.6 - 1.2 | EXTERNAL | | | Level | performed at [facility];888 | mmol/L | LAB | | | | [address] [facility];[place], [place] | | | | | | [address] | | | | + + + [...] + + | Historically converted procedure from [facility] | EXTERNAL LAB | + + [...] | | Basophils | performed at [facility], [address] | K/uL | LAB | | | | [address], | | | | | | [place] [address] | | | | + + + [...] | | | | performed at [facility], [address] | | LAB | | | | Lotus Rojas, | | | | | | [place] [address] | | | | + + + [...] | | | | performed at [facility], [address] | | LAB | | | | Lotus Rojsa, | | | | | | [place] [address] | | | | + + + [...] Rojas, | | | | | | [place] [address] | | | | + + + [...] + + | Historically converted procedure from [facility] | EXTERNAL LAB | + + [...] | | | | | performed at [facility];[address] | | | | | | Joyce [address]jas;[place], [place] | | | | | | [address] | | | | + + + [...] | | | | | at [facility], [address] | | | | | | Lotus Rojas, | | | | | | [place] [address] | | | | + + + [...] Rojas, | | | | | | [place] [address] | | | | + + + [...] | | | | performed at [facility], [address] | | LAB | | | | Lotus Rojas, | | | | | | [place] [address] | | | | + + + [...] | | | | | at [facility], [address] | | | | | | Lotus Rojas, | | | | | | [place] [address] | | | | + + + [...] - 1.030 | EXTERNAL | | | [place], | | | LAB | | | [...] | | | Urine | performed at [facility];888 | | LAB | | | | Joyce Rojas;[place] | | | | | | [address] | | | | + + + [...] | | screws there appears to be christianity of the ankle mortise. Talar | | [...] screws | | there appears to be christianity of the ankle mortise. Talar dome appears [...] cortical type screws there appears to be christianity of the ankle morti se. Talar dome [...] + + | Historically converted procedure from [facility] environment | EXTERNAL LAB | + [...] | | | | | | [facility], [address] [facility] | | | | | | [place] | | | | | | [address] | | | | + + + [...] | | | | | performed at [facility];[address] | | | | | | Joyce Rojas;[place], [place] | | | | | | [address] | | | | + + + [...] | | | Basophils | performed at [facility];[address] | K/uL | LAB | | | | [address] [place] | | | | | | [address] | | | | + + + [...] | | EN LEVEL | performed at [facility];888 | ug/mL | LAB | | | | [address];[place], [place] | | | | | | [address] | | | | + + + [...] | | | | | | at [facility] [address] | | | | | | [address];[place] [address] | | | | + + + [...] | | | | | ONLY, -COMPUTER (447), | | | | | | photograph editor Elva Resendiz | | | | | | (18) on 05/30/2017 6:26:26 | | | | | | AM | | | | + + + + + + + + | Specimen | + + | | + + + + + | Narrative | Performed At | + + + | Historically converted procedure from [facility] environment | EXTERNAL LAB | + [...]
--- OUTSIDE RECORDS SUMMARY | ~2020-04-19 | XMS | Encounter Summary ---
Demographics + + + | Address | [address] | | | [place] [address] | + + + | Home Phone [...] Author | [facility] | | | and Raghuana | + + + | Organization | [facility] | | | and [...] Team Providers + +------+ + | Care Box Spring Maker Name | Role | Phone | + [...] | | [address] | [address], | | | | [facility] | [place] [address] | | | | | [address] | [phone] | | | | | [phone] | | | +--------+ + + + [...]
--- OUTSIDE RECORDS SUMMARY | ~2020-04-19 | XMS | Encounter Summary ---
Demographics + + + | Address | [address] | | | [place] [address] | + + + | Home Phone | | + + + | Preferred Language | Unknown | + + + | Marital Status | Unknown | + + + | Zoroastrian Affiliation | Unknown | + + + | Race | Unknown | + + + | Ethnic Group | Unknown | + + + Author + + + | Author | [facility] | | | and Raghuana | + + + | Organization | [facility] | | | and [...] Team Providers + +------+ + | Care Instrument Sterilizer Name | Role | Phone | + [...] | | | ulnar nerve, | [place] [address] | [address] Phone: | | | | | left upper | Phone: | [phone] | | | | | limb | [phone] | Fax: | | | | | Procedures | Fax: | [phone] | | | | | NM MOTOR | [phone] | | | | | | &/SENS 1-2 | | | | | | | NRV CNDJ | | | | | | | PRECONF | | | | | | | ELTRODE LIMB | | | | | | | NM MOTOR | | | | | | | &/SENS 3-4 | | | | | | | NRV CNDJ | | | | | | | PRECONF | | | | | | | ELTRODE LIMB | | | | | | | NM MOTOR | | | | | | | &/SENS 7-8 | | | | | | | NRV CNDJ | | | | | | | PRECONF | | | | | | | ELTRODE LIMB | | | | | | | NM NEEDLE | | | | | | [...] + + | 07/28/ | Procedure | [facility] | Lalito Ortiz, | Left arm numbness | | 2015 | visit | PHYSIATRY [address] | MD Debora ANSARI | (Primary Dx); | | | | [address] | [address] | Chronic neck pain; | | | | [place], [place] | [place] [address] | Ulnar neuropathy of | | | | [address] | [phone] | left upper | | | | [phone] | | extremity; Cervical | | | [...] + | Lalito Ortiz MD 07/29/2016 13:14 [facility] | | | Physician Group [facility] [place] | | | [facility] Complex [address] [place] [address] Ph: | | | Test Date: 07/27/2016 | | | Patient Name: Anat Ramos : 1950 Physician: Gilbert | | | MD Diana MR #: [id number] Sex: Female Referring Physician: | | | [...] were normal | | | with no mzfc-ac-pvus difference. 2. Left median and right ulnar [...] | | | Lalito Ortiz MD Diplomate, [place] | | | Board of Physical Medicine [...]
--- OUTSIDE RECORDS SUMMARY | ~2020-04-19 | XMS | Clinical Summary ---
Demographics + + + | Address | [address] | | | [place] [address] | + + + | Home Phone | | + + + | Preferred Language | Unknown | + + + | Marital Status | Single | + + + | Spiritism Affiliation | Unknown | + + + | Race | Unknown | + + + | Ethnic Group | Unknown | + + + Author + + + | Author | [facility] (Historical as of | | | 07-14-19) | + + + | Organization | [facility] (Historical as of | | | 07-14-19) [...] Team Providers + +------+ + | Care Machining And Assembly Supervisor Name | Role | Phone | + [...] +------+-------+ + | MEDICARE | MEDICA | [id number] | | | [address] | | | RE | | | | [place] [phone] | | | IP-OP | | | | | + +--------+ +------+-------+ + | M[employer]UAL OF [place] | MUTUAL | [id number] | | | | | | OF | | | | | | | [place] | | | | | + +--------+ [...] | 1949 | +- | [place] [address] | | | ad | | | [address]291 | | + +--------+ +--------+ + + | KATELYNN HIDALGO | Skille | Self [birth year] Home: | [address] | | | d | | 1949 | +- | [place] [address] | | | Nursin | | | 8291 | | | | g | | | | | | | Facili | | | | | | | ty | | | | | + +--------+ +--------+ + +
--- OUTSIDE RECORDS SUMMARY | ~2020-04-19 | XMS | Encounter Summary ---
Demographics + + + | Address | [address] | | | [place] [address] | + + + | Home Phone | | + + + | Preferred Language | Unknown | + + + | Marital Status | Unknown | + + + | Latter Day Affiliation | Unknown | + + + | Race | Unknown | + + + | Ethnic Group | Unknown | + + + Author + + + | Author | [facility] | | | and Raghuana | + + + | Organization | [facility] | | | and Raghuana | + + + | Address | Unknown | + + + | Phone | Unavailable | + + + Support + + +---------+ + | Name | Relationship | Address | Phone | + + +---------+ + | Joaquin STYLES | Unknown | | + + +---------+ + Care Team Providers + +------+ + | Care Mergers And Acquisitions Consultant Name | Role | Phone | + [...] | MED CTR EXTERNAL | MD [address] | | | | | IMAGING [address] | [place] | | | | | [address] [place] | [place] [address] | | | | | [place] [address] | | | | | | [phone] | | | +--------+ + + + [...]
--- OUTSIDE RECORDS SUMMARY | ~2020-04-19 | XMS | Encounter Summary ---
Demographics + + + | Address | [address] | | | [place] [address] | + + + | Home Phone | | + + + | Preferred Language | Unknown | + + + | Marital Status | Unknown | + + + | Sabianism Affiliation | Unknown | + + + | Race | Unknown | + + + | Ethnic Group | Unknown | + + + Author + + + | Author | [facility] | | | and Raghuana | + + + | Organization | [facility] [...] Team Providers + +------+ + | Care Program Development Specialist Name | Role | Phone | [...] | MED CTR EXTERNAL | MD [address] | | | | | IMAGING [address] | [place] | | | | | [address] [place] | [place] [address] | | | | | [place] [address] | | | | | | [phone] | | | +--------+ + + + [...]
[~2020-04-19 23:20] MED LIST changes: +VITAMIN D250 MCG PO
[2020-04-19] MEDS ORDERED: PRAZOSIN HCL1 MG PO (23:40)
--- NOTE | 2020-04-20 12:10 | EKG ---
[facility] [address] [place] [address] Signed Normal sinus rhythm Left bundle branch block Abnormal ECG When compared with ECG of 27-DEC-2018 09:53, T wave inversion now evident in Lateral leads QT has lengthened Confirmed by CALVIN LONG MD ([id number]) on 04/20/2020 12:10:02 PM Electronically Signed By: CALVIN LONG MD 04/20/20 1210 PATIENT NAME: LUBNATERESAEllenMARINASKYE ROONEYELE Electrocardiogram DATE OF : 54 PHYSICIAN: CALVIN LONG MD REPORT #: [id number] REPORT IS CONFIDENTIAL AND NOT TO BE RELEASED WITHOUT AUTHORIZATION
== END 2020-04-20 06:11 | disposition home or self-care (01) ==
LOC: ED 23:20
DX: I95.9 Hypotension, unspecified (principal); I10 Essential (primary) hypertension; Z79.899 Other long term (current) drug therapy
CPT/HCPCS: 71045; 80053; 81001; 83735; 84484; 85025; 93005; 93010; 96360; 96361; 99285-25; J7030

== ENCOUNTER 2020-04-23 23:10 | Emergency (ER) | payer MEDICARE, OTHER ==
[~2020-04-23] VITALS: Ht 157.5 cm; Wt 68.0 kg
--- OUTSIDE RECORDS SUMMARY | ~2020-04-23 | XMS | Encounter Summary ---
Demographics + + + | Address | [address] | | | [place] [address] | + + + | Home Phone | | + + + | Preferred Language | Unknown | + + + | Marital Status | Unknown | + + + | Mormon Affiliation | Unknown | + + + | Race | Unknown | + + + | Ethnic Group | Unknown | + + + Author + + + | Author | [facility] | | | and [place] | + + + | Organization | [facility] | | | and [place] [...] Team Providers + +------+ + | Care Tube Room Cashier Name | Role | Phone | + +------+ + | Palomo Gibbons MD | PCP | | + +------+ + Encounter Details +--------+ + + + + | Date | Type | Department | Care Team | Description | +--------+ + + + + | 07/26/ | Orders Only | [facility] | Darci Pedraza | | | 2016 | | [address] | [address] | | | | | [address] | [place], | | | | | [facility] | [place] [address] | | | | | [address] | [phone] | | | | | [phone] | | | +--------+ + + + + Social History + +-------+ +--------+------+ | Tobacco Use | Types | Packs/Day | Years | Date | | | | | Used | | + +-------+ +--------+------+ | Former Smoker | | | | | + +-------+ [...] LEFT 3 + VW | Routin | 07/26/2017 | | Results for this | | | e | 11:52 AM | | procedure are in the | | | | PDT | | results section. | + +--------+ + + + documented in this encounter Results XR Ankle Left 3 + Vw (07/26/2017 11:52 AM PDT) + + | Specimen | + + | | + + + + + | Narrative | Performed At | + + + | Indication: Left ankle fracture fixation. Technique: AP, | | | mortise, and lateral views of the left ankle were obtained. | | | Previous imaging: X-rays from within the last 2 months were available | | | for review. Findings: X-rays of the left ankle demonstrate | | | lateral plate fixation of a fibula fracture. The talus is reduced | | | under the ankle mortise and interval healing is present on the | | | fibula. There is no evidence of hardware failure. Impression: | | | Healing left ankle distal fibula fracture with maintenance of | | | reduction of tibiotalar joint. | | + + + + + | Procedure Note | + + | Jose Ruth Conversion - 07/19/2019 8:13 PM PDT Indication: Left ankle fracture | | fixation. Technique: AP, mortise, and lateral views of the left ankle were obtained. | | Previous imaging: X-rays from within the last 2 months were available forreview. | | Findings: X-rays of the left ankle demonstrate lateral plate fixation of afibula | | fracture. The talus is reduced under the ankle mortise and intervalhealing is present on | | the fibula. There is no evidence of hardwarefailure. Impression: Healing left ankle | | distal fibula fracture with maintenance ofreduction of tibiotalar joint. | |Findings: X-rays of the left ankle demonstrate lateral plate fixation of a | |fibula fracture. The talus is reduced under the ankle mortise and interval | |healing is present on the fibula. There is no evidence of hardware | |failure. | | | |Impression: Healing left ankle distal fibula fracture with maintenance of | |reduction of tibiotalar joint. | + + documented in this encounter Visit Diagnoses Not on filedocumented in this encounter"
--- OUTSIDE RECORDS SUMMARY | ~2020-04-23 | XMS | Encounter Summary ---
Demographics + + + | Address | [address] | | | [place] [address] | + + + | Home Phone | | + + + | Preferred Language | Unknown | + + + | Marital Status | Unknown | + + + | Adventism Affiliation | Unknown | + + + | Race | Unknown | + + + | Ethnic Group | Unknown | + + + Author + + + | Author | [facility] | | | and [place] | + + + | Organization | [facility] | | | and [place] | + + + | Address | Unknown | + + + | Phone | Unavailable | + + + Support + + +---------+ + | Name | Relationship | Address | Phone | + + +---------+ + | Joaquin STYLES | Unknown | | + + +---------+ + Care Team Providers + +------+ + | Care Director Of Education Name | Role | Phone | + +------+ + | Haroldo Davis MD | PCP | | + +------+ + Encounter Details +--------+ + + + + | Date | Type | Department | Care Team | Description | +--------+ + + + + | 05/28/ | Hospital | [facility] | Mehran Michele, | Pain; Ankle | | 2017 - | Encounter | [facility] [address] | [address] | dislocation, left, | | | | [address] | [address] [address] [id number] | initial encounter; | | 06/01/ | | [place], [place] | [phone] | Closed fracture of | | 2017 | | [id number] | | left ankle, initial | | | | [phone] | | encounter | +--------+ + + + + Social [...] + + documented as of this encounter Last Filed Vital Signs + + + + + | Vital Sign | Reading | Time Taken | Comments | + + + + + | Blood Pressure | 142/81 | 06/01/2017 11:33 AM | | | | | PDT | | + + + + + | Pulse | 79 | 06/01/2017 11:33 AM | | | | | PDT | | + + + + + | Temperature | 36.8 C (98.2 F) | 06/01/2017 11:33 AM | | | | | PDT | | + + + + + | Respiratory Rate | 14 | 06/01/2017 11:33 AM | | | | | PDT | | + + + + + | Oxygen Saturation | - | - | | + + + + + | Inhaled Oxygen | - | - | | | Concentration | | | | + + + + + | Weight | 76.8 kg (169 lb 4.8 | 06/01/2017 11:33 AM | | | | oz) | PDT | | + + + + + | Height | 157.5 cm (5' 2") | 06/01/2017 11:33 AM | | | | | PDT | | + + + + + | Body Mass Index | 30.97 | 06/01/2017 11:33 AM | | | | | PDT | | + + + + + documented in this encounter Discharge Summaries Erasto Piña MD - 06/01/2017 8:51 AM PDTFormatting of this note might be different from th e original. Discharge Summaries by Erasto Piña MD at 06/01/17 0851 Author: Erasto Piña MD Service: (none) Author Type: Physician Filed: 06/01/17 1243 Date of Service: 06/01/17 0851 Status: Signed Wellness Ambassador: Erasto Piña MD (Physician) [facility] Service: Hospitalist Physician Discharge Summary Patient ID: Katelynn Hidalgo [id number] 67 y.o. 1950 Admit date: 05/28/2017 Discharge date and time: 06/01/2017 Admitting Physician: Mehran Michele MD Discharge Physician: Erasto Piña MD Consultants: Treatment Team: Consulting Physician: Darci Pedraza MD Admitting Provider: Mehran Michele MD Discharge Diagnoses: Principal Problem: Closed fracture of left ankle Active Problems: Hx of bipolar disorder Hx of schizophrenia Abnormal LFTs (liver function tests) Hepatic steatosis The first problem in the assessment and plan below is a primary discharge diagnosis unless specifically stated otherwise. HPI and Hospital Course: * 67 y.o.female 67-year-old female with past medical history of bipolar disorder, schizophrenia, hypertensi on presented with left ankle fracture. 1. Left fibular fracture status post OR and surgery by orthopedic surgery. Appreciate help from same continue with PT OT and pain management on deep vein thrombosis prophylaxis With L ovenox for 21 days. Outpatient follow-up with orthopedic surgery and continue with pain aris gement and Colace prn 2. Hypertension: Continue with metoprolol and lisinopril 3. Bipolar disorder and schizophrenia: Continue withWellbutrin SR 150 mg p.o. b.i.d., Arice pt 10 mg at bedtime, Cymbalta 50 mg p.o. q.a.m., gabapentin 900 mg t.i.d., Cytomel 25 mcg q. a.m., [place] 300 mg p.o. at bedtime, and Geodon 80 mg p.o. at bedtime, and Seroquel 150 mg p.o. at bedtime. Per admitting hospitalist medications have been verified with patient and h er pharmacy. Also has been started on BuSpar. Resume all medications as before 4. Prolonged QTC: Most likely due to above medications. QTC was 480 - 520 and again 480. No evidence of telemetry for last 2 days. Electrolytes have been stable. Also recent echo revi ewed from 03/14. No evidence of telemetry for last 3 days Discussed with patient about ventricular arrhythmias and sudden cardiac . But current decision to continue with same regimen and monitor as patient reports that she has been stab le on these medications for a long time. 5. Transaminitis most likely due to hepatic steatosis. ultrasound and hepatitis panel negat berenice other high likely possibility could be medication induced. But improving so no changes a t this point and follow-up with PCP as outpatient. 6. Postoperative urinary retention status post Nevarze catheter by urology. Was discontinued and patient has been voiding well Condition at discharge: stable as dictated above Primary discharge diagnosis: Left ankle fracture Disposition: *SNF Follow up: Haroldo Davis MD [address] [place] [address] Darci Pedraza MD [address] [facility] [id number] Schedule an appointment as soon as possible for a visit in 1 week Dictation and geological technical officer or software, [employer], used which may contain error for similar s ounding words even after review. Personal communication requested for any clarification. Discharge Vitals: Filed Vitals: 05/31/17 1949 05/31/17 2310 06/01/17 0336 06/01/17 0735 BP: 179/84 180/83 134/63 131/71 Pulse: 79 84 68 68 Temp: 97.7 F (36.5 C) 98.2 F (36.8 C) 98.3 F (36.8 C) 98.3 F (36.8 C) TempSrc: Oral Oral Oral Oral Resp: 16 16 16 16 Height: Weight: SpO2: 98% 99% 93% 96% Discharge Exam: General: Well nourished. Psych: Alert and oriented x 3. Calm, cooperative. Cardiovascular: Regular rate and rhythm, no murmurs, no thrills. Normal PMI. Respiratory: Clear to auscultation, no wheezing or crackles, breathing non labored. Gastrointestinal: Soft, non-tender, non-distended, positive bowel sounds. No HSM. Musculoskeletal: Left ankle soft cast. No joint swelling. Skin: Warm and dry, no rashes. Neck: No JVD, Trachea midline. Neurological: Non focal. Motor grossly intact. Secondary Discharge Diagnoses AND Other Medical History: Past Medical History Diagnosis Date Ankle dislocation Schizoaffective disorder (HCC) Bipolar affective (HCC) Glaucoma Hypertension Skin cancer Hepatic steatosis 05/28/2017 Thyroid disease Past Surgical History Procedure Laterality Date Abdominal surgery Cholecystectomy Appendectomy Hysterectomy Skin cancer exision january 2017 scalp Thyroidectomy, partial Left Ankle fracture surgery Left 05/28/2017 Procedure: ANKLE - ORIF; Surgeon: Darci Pedraza MD; Location: [facility] OR; Ser vice: Orthopedics; Laterality: Left; Significant Diagnostic Studies: X-ray Ankle Left 05/28/2017 This is a non-reportable procedure without a radiologist report and is used for i mage storage only X-ray Ankle Left 05/28/2017 This is a non-reportable procedure without a radiologist report and is used for i mage storage only X-ray Ankle Left 05/28/2017 This is a non-reportable procedure without a radiologist report and is used for i mage storage only X-ray Ankle Left 05/28/2017 This is a non-reportable procedure without a radiologist report and is used for i mage storage only Ultrasound Abdomen, Gallbladder 05/28/2017 KATELYNN HIDALGO 1950 US ABDOMEN LIMITED 05/28/2017 9:21 AM HISTORY: Incidental f inding of elevated LFTs. TECHNIQUE: Transabdominal ultrasound, grayscale and color flow eval uation. COMPARISON: None. FINDINGS: Visualized pancreatic head and body appear grossly unrem arkable. The tail is not seen. Nonspecific borderline prominence of the pancreatic duct up t o 2.8 mm, with no obvious dilatation of the visualized duct. Liver demonstrates slightly inc reased hepatic echotexture. No CBD is 7.6 mm in diameter. Gallbladder is reportedly surgical ly absent. Hepatopedal flow in the portal veins. Hepatofugal flow in the hepatic veins. Visu alized right kidney appears grossly unremarkable. 05/28/2017 1. Findings suggesting hepatic steatosis. 2. Mild dilatation of the CBD. This i s favored to relate to the absence of gallbladder. Patient is reportedly post cholecystectom y. X-ray C-arm Fluoro Over 1 Hour 05/28/2017 HISTORY: 67 year-old female with fracture distal left fibula. TECHNIQUE: Intrapro cedural fluoroscopy was performed by the operating surgeon. Fluoroscopic views are preserved for documentation. FLUOROSCOPY TIME: 13.4 seconds FLUOROSCOPY DOSE: 0.49 mGy. Total of 4 im ages No prior similar study available for comparison. FINDINGS: Initial images demonstrates a multihole fixation plate spanning the distal left fibula transfixed with multiple cortical type screws there appears to be sabianism of the ankle mortise. Talar dome appears smooth . 05/28/2017 1. ORIF distal left fibular fracture with retained orthopedic hardware. Electron ically signed by Campos Daley MD on 05/28/2017 9:36 PM LABS: CBC: Lab Results Component Value Date WBC 6.35 05/30/2017 RBC 3.24* 05/30/2017 HGB 9.3* 05/30/2017 HCT 28.7* 05/30/2017 MCV 88.8 05/30/2017 MCH 28.8 05/30/2017 MCHC 32.5 05/30/2017 RDW 47.7 05/30/2017 PLT 185 05/30/2017 MPV 8.1 05/30/2017 DIFFTYPE AUTOMATED 05/30/2017 CMP: Lab Results Component Value Date NA 145 05/30/2017 K 3.9 05/30/2017 CL 112* 05/30/2017 CO2 29 05/30/2017 ANIONGAP 8 05/30/2017 GLUF 114* 05/30/2017 BUN 14 05/30/2017 CREATININE 0.8 05/30/2017 BCR 18 05/30/2017 CA 8.3* 05/30/2017 PROT 5.9* 05/30/2017 ALB 2.7* 05/30/2017 GLOB 3.2 05/30/2017 BILITOT 0.2 05/30/2017 ALP 184* 05/30/2017 AST 50* 05/30/2017 ALT 126* 05/30/2017 EGFR >60 05/30/2017 Albumin: Lab Results Component Value Date ALB 2.7* 05/30/2017 Magnesium: Lab Results Component Value Date MG 2.4 05/30/2017 Phosphorus: Lab Results Component Value Date PHOS 2.8 05/30/2017 PT/INR: Lab Results Component Value Date INR 1.0 05/29/2017 Troponin: No results found for: TROPONINI Last 3 Troponin: No results found for: TROPONINI TSH: No results found for: TSH, TSHNEO Patient Instructions: Medication List START taking these medications docusate sodium 100 MG capsule QTY: 30 capsule Refills: 0 Commonly known as: COLACE Take 1 capsule by mouth 2 (two) times daily as needed for Constipation. enoxaparin 40 MG/0.4ML Soln QTY: 8.4 mL Refills: 0 Commonly known as: LOVENOX Inject 0.4 mLs into the skin daily. HYDROcodone-acetaminophen 7.5-325 MG per tablet QTY: 30 tablet Refills: 0 Commonly known as: NORCO Take 1 tablet by mouth every 6 (six) hours as needed. CHANGE how you take these medications buPROPion 150 MG 12 hr tablet QTY: 60 tablet Refills: 0 Commonly known as: WELLBUTRIN SR Take 1 tablet by mouth 2 (two) times daily. What changed: how to take this busPIRone 10 MG tablet QTY: 60 tablet Refills: 0 Commonly known as: BUSPAR Take 1 tablet by mouth 2 (two) times daily. Indications: Anxiety Disorder What changed: how to take this donepezil 10 MG tablet QTY: 30 tablet Refills: 0 Commonly known as: ARICEPT Take 1 tablet by mouth nightly. What changed: how to take this DULoxetine [address] capsule QTY: 30 capsule Refills: 0 Commonly known as: CYMBALTA Take 1 capsule by mouth every morning. What changed: how to take this gabapentin 300 MG capsule QTY: 60 capsule Refills: 0 Commonly known as: NEURONTIN Take 3 capsules by mouth 3 (three) times daily. What changed: how to take this lithium carbonate 300 MG capsule QTY: 30 capsule Refills: 0 Take 1 capsule by mouth nightly. What changed: how to take this LORazepam 0.5 MG tablet QTY: 30 tablet Refills: 0 Commonly known as: ATIVAN Take 1 tablet by mouth 4 (four) times daily as needed. What changed: how to take this quetiapine 300 MG tablet QTY: 30 tablet Refills: 0 Commonly known as: SEROquel Take 0.5 tablets by mouth nightly. What changed: how to take this ziprasidone 60 MG capsule QTY: 30 capsule Refills: 0 Commonly known as: GEODON Take 1 capsule by mouth nightly. What changed: how to take this CONTINUE taking these medications liothyronine 25 MCG tablet Refills: 0 Commonly known as: CYTOMEL lisinopril 2.5 MG tablet Refills: 0 Commonly known as: ZESTRIL metoprolol 50 MG 24 hr tablet Refills: 0 Commonly known as: TOPROL-XL pantoprazole 40 MG tablet Refills: 0 Commonly known as: PROTONIX STOP taking these medications diclofenac 50 MG EC tablet Commonly known as: VOLTAREN oxyCODONE-acetaminophen 5-325 MG per tablet Commonly known as: PERCOCET Where to Get Your Medications You can get these medications from any pharmacy Bring a paper prescription for each of these medications - buPROPion 150 MG 12 hr tablet - busPIRone 10 MG tablet - docusate sodium 100 MG capsule - donepezil 10 MG tablet - DULoxetine [address] capsule - enoxaparin 40 MG/0.4ML Soln - gabapentin 300 MG capsule - HYDROcodone-acetaminophen 7.5-325 MG per tablet - lithium carbonate 300 MG capsule - LORazepam 0.5 MG tablet - quetiapine 300 MG tablet - ziprasidone 60 MG capsule Activity: activity as tolerated Diet: Cardiac Diet Discharge took more than 35 minutes, to include final examination, discussion of admission, and preparation of prescriptions, instructions for ongoing care, follow up and dictation of summary. There are no Patient Instructions on file for this visit. Follow-up with PMD and other physicians as directed. Signed: Erasto Piña 06/01/2017 8:51 AM documented in this encou nter Medications at Time of Discharge + + + +---------+--------+ + | Medication | Sig | Dispensed | Refills | Start | End Date | | | | | | Date | | + + + +---------+--------+ + | acetaminophen | Take 1,000 mg by | | 0 | | | | (TYLENOL) 500 mg | mouth nightly. | | | | | | tablet | | | | | | + + + +---------+--------+ + | B Complex-C (SUPER | Take 1 tablet by | | 0 | | | | B COMPLEX PO) | mouth Daily. | | | | | + + + +---------+--------+ + | buPROPion | Take 150 mg by mouth | | 0 | | | | (WELLBUTRIN SR) 150 | 2 times daily. | | | | | | mg 12 hr tablet | | | | | | + + + +---------+--------+ + | cholecalciferol | Take 1,000 Units by | | 0 | | | | (VITAMIN D-3) 1000 | mouth Daily. | | | | | | UNITS TABS | | | | | | + + + +---------+--------+ + | CHOLESTYRAMINE PO | Take 1 tablet by | | 0 | | | | | mouth 3 times daily. | | | | | + + + +---------+--------+ + | donepezil | Take 10 mg by mouth | | 0 | | | | (ARICEPT) 10 MG | nightly. | | | | | | tablet | | | | | | + + + +---------+--------+ + | DULoxetine | Take 60 mg by mouth | | 0 | | | | (CYMBALTA) [address] | Daily. | | | | | | capsule | | | | | | + + + +---------+--------+ + | LORazepam (ATIVAN) | Take 1 mg by mouth 2 | | 0 | | | | 1 mg tablet | times daily. | | | | | + + + +---------+--------+ + | metoprolol | Take 50 mg by mouth | | 0 | | | | succinate | Daily. | | | | | | (TOPROL-XL) 50 mg 24 | | | | | | | hr tablet | | | | | | + + + +---------+--------+ + | Multiple | Take 1 tablet by | | 0 | | | | Vitamins-Minerals | mouth nightly. | | | | | | (HAIR/SKIN/NAILS PO) | | | | | | + + + +---------+--------+ + | QUEtiapine | Take 150 mg by mouth | | 0 | | | | (SEROQUEL XR) 150 mg | nightly. | | | | | | ER tablet | | | | | | + + + +---------+--------+ + | Ziprasidone HCl | Take 160 mg by mouth | | 0 | | | | (GEODON PO) | nightly. | | | | | + + + +---------+--------+ + documented as of this encounter Progress Notes Conversion Transaction, Provider Unknown - 06/01/2017 11:16 AM PDTFormatting of this note m ight be different from the original. Therapy Progress Note by Paulo Gilman PTA at 06/01/17 1116 Author: Paulo Gilman PTA Service: (none) Author Type: Chemical Plant Manager Filed: 06/01/17 1119 Date of Service: 06/01/171115 Status: Signed Wellness Ambassador: Paulo Gilman PTA (Chemical Plant Manager) 06/01/171115 PT Last Visit PT Received On 06/01/17 Reason for Treatment LE fracture Requires PT Follow Up Yes Assistance Required 1 person Precautions LE Precaution(s) LLE Precautions/WB LLE NWB Other Comments Comments pt supine in bed willing to participate completed therex then completed transfer training and w/c mobility pt remaining in w/c post tx Cognition Overall Cognitive Status WFL Orientation Level Oriented Bed Mobility Supine to Sit Standby assist Scooting Standby assist Transfers Bed to/from Chair Standby assist Squat Pivot Transfers Standby assist Mobility Wheelchair Supervision Maximal Wheelchair Distance (feet) 300 Total Wheelchair Distance (feet) 300 Distance limited by? Patient's ability Wheelchair Propulsion BUE;RLE Wheelchair Type Standard Wheelchair Surface Linoleum Ramp Standby assist Supine Supine-Exercise Type Ankle pumps;Quad sets;Glut sets;ABD/ADD;Heel slides Activity Tolerance Activity Tolerance Patient limited by fatigue Plan Treatment/Interventions Continue per Primary PT POC Progress Progressing toward goals Recommendation Recommendations SNF PT Ready for Discharge Yes PT recommendations were discussed and verified with supervising PT. onver judith Deeaction, Provider Unknown - 06/01/2017 10:54 AM PDT Case Management by Kristy Renee RN at 06/01/17 1056 Author: Kristy Renee RN Service: (none) Author Type: Registered Nurse Filed: 06/01/17 105 Date of Service: 06/01/17 1054 Status: Addendum Wellness Ambassador: Kristy Renee RN (Registered Nurse) Related Notes: Original Note by Kristy Renee RN (Registered Nurse) filed at 06/01/17 09 33 0931: Pt is medically ready for d/c today and has been medically accepted at [facility]. Called Arturo, [employer] at [facility] in [place] and left message to arrange transportation. Awaiting return phone call. 1015: Received c/b from Arturo at [place]. [facility] transport van can pick pt up between 11:30 and 12:00. Disposition: [facility] Transportation: [facility] transport van All orders, signed AVS, and prescriptions have been faxed All DC paperwork completed Patient and family in agreement with discharge plan Medicare important message (Given or N/A): given Kristy Renee RN CM Erasto Sapp MD - 05/31/2017 11:20 AM PDTFormatting of this note might be different from the origi nal. Progress Notes by Erasto Piña MD at 05/31/17 1120 Author: Erasto Piña MD Service: (none) Author Type: Physician Filed: 05/31/17 1123 Date of Service: 05/31/17 112 Status: Signed Wellness Ambassador: Erasto Piña MD (Physician) [facility] Service: Hospitalist Progress Note Hospital Day: LOS: 3 days Consultants: Treatment Team: Consulting Physician: Darci Pedraza MD Admitting Provider: Mehran Michele MD The first problem in assessment is the principal problem. ASSESSMENT/ PLAN 67-year-old female with past medical history of bipolar disorder, schizophrenia, hypertensi on presented with left ankle fracture. 1. Left fibular fracture status post OR and surgery by orthopedic surgery. Appreciate help from same continue with PT OT and pain management on deep vein thrombosis prophylaxis. Possibly might be okay for aspirin 325 bid for deep vein thrombosis prophylaxis at home. 2. Hypertension: Continue with metoprolol and lisinopril 3. Bipolar disorder and schizophrenia: Continue withWellbutrin SR 150 mg p.o. b.i.d., Arice pt 10 mg at bedtime, Cymbalta 50 mg p.o. q.a.m., gabapentin 900 mg t.i.d., Cytomel 25 mcg q. a.m., [place] 300 mg p.o. at bedtime, and Geodon 80 mg p.o. at bedtime, and Seroquel 150 mg p.o. at bedtime. Per admitting hospitalist medications have been verified with patient and h er pharmacy. Also has been started on BuSpar. 4. Prolonged QTC: Most likely due to above medications. QTC was 480 - 520 and again 480. No evidence of telemetry for last 2 days. Electrolytes have been stable. Also recent echo revi ewed from 03/14. C/w telemetry for 24 more hrs. Discussed with patient about ventricular arrhythmias and sudden cardiac . But current decision to continue with same regimen and monitor as patient reports that she has been stab le on these medications for a long time. 5. Transaminitis most likely due to hepatic steatosis. ultrasound and hepatitis panel negat berenice other high likely possibility could be medication induced. But improving so no changes a t this point and follow-up with PCP as outpatient. 6. Postoperative urinary retention status post Nevarez catheter by urology. Appreciate help. Currently would recommend to continue Nevarez catheter until patient ambulating and voiding t rial at SNF in may be 2 weeks. Outpatient follow-up with urology Disposition: SNF awaiting above. No transport today plan for discharge tomorrow. Code Status: Full Code Dictation and geological technical officer or software, [employer], used which may contain error for similar s ounding words even after review. Personal communication requested for any clarification. SUBJECTIVE Events Overnight: No new complaints denies any nausea vomiting shortness of breath had bow el movements yesterday. OBJECTIVE General: Well nourished. Psych: Alert and oriented x 3. Calm, cooperative. Cardiovascular: Regular rate and rhythm, no murmurs, no thrills. Normal PMI. Respiratory: Clear to auscultation, no wheezing or crackles, breathing non labored. Gastrointestinal: Soft, non-tender, non-distended, positive bowel sounds. No HSM. Musculoskeletal: Left leg soft cast No edema in bilateral lower extremities. No joint swel ling. Neck: No JVD, Trachea midline. Neurological: Non focal. Motor grossly intact. PROBLEM LIST Principal Problem: Closed fracture of left ankle Active Problems: Hx of bipolar disorder Hx of schizophrenia Abnormal LFTs (liver function tests) Hepatic steatosis PMH Past Medical History Diagnosis Date Ankle dislocation Schizoaffective disorder (HCC) Bipolar affective (HCC) Glaucoma Hypertension Skin cancer Hepatic steatosis 05/28/2017 Thyroid disease HOME MEDICATIONS Prior to Admission medications Medication Sig Start Date End Date Taking? Authorizing Provider buPROPion (WELLBUTRIN SR) 150 MG 12 hr tablet 150 mg 2 (two) times daily. 05/19/17 Yes Hist orical Provider busPIRone (BUSPAR) 10 MG tablet 10 mg 2 (two) times daily. Indications: Anxiety Disorder Yes Historical Provider donepezil (ARICEPT) 10 MG tablet 10 mg nightly. 05/19/17 Yes Historical Provider DULoxetine (CYMBALTA) [address] capsule 60 mg every morning. 05/25/17 Yes Historical Provide r gabapentin (NEURONTIN) 300 MG capsule 900 mg 3 (three) times daily. 05/19/17 Yes Historical Provider liothyronine (CYTOMEL) 25 MCG tablet 25 mcg every morning. 05/25/17 Yes Historical Provider lisinopril (ZESTRIL) 2.5 MG tablet 2.5 mg daily. 05/02/17 Yes Historical Provider lithium carbonate 300 MG capsule 300 mg nightly. 05/19/17 Yes Historical Provider metoprolol (TOPROL-XL) 50 MG 24 hr tablet 50 mg daily. 05/19/17 Yes Historical Provider oxyCODONE-acetaminophen (PERCOCET) 5-325 MG per tablet 1-2 tablets every 4 (four) hours as needed. 05/27/17 Yes Historical Provider quetiapine (SEROQUEL) 300 MG tablet 150 mg nightly. 05/19/17 Yes Historical Provider ziprasidone (GEODON) 60 MG capsule 60 mg nightly. 05/19/17 Yes Historical Provider diclofenac (VOLTAREN) 50 MG EC tablet 50 mg 2 (two) times daily. 05/24/17 Historical Provi ginna LORazepam (ATIVAN) 0.5 MG tablet 0.5 mg 4 (four) times daily as needed. 04/18/17 Historica l Provider pantoprazole (PROTONIX) 40 MG tablet 40 mg every morning before breakfast. 05/24/17 Histor ical Provider DATA Vital Signs: BP 157/70 mmHg | Pulse 68 | Temp(Src) 98.2 F (36.8 C) (Oral) | Resp 16 | Ht 1.575 m (5' 2") | Wt 76.794 kg (169 lb 4.8 oz) | BMI 30.96 kg/m2 | SpO2 93% Filed Vitals: 05/30/17 2336 05/31/17 0349 05/31/17 0712 05/31/17 1110 BP: 130/61 117/59 120/56 157/70 Pulse: 74 80 68 68 Temp: 98.6 F (37 C) 98.8 F (37.1 C) 98.8 F (37.1 C) 98.2 F (36.8 C) TempSrc: Oral Oral Oral Oral Resp: 16 Height: Weight: 76.794 kg (169 lb 4.8 oz) SpO2: 92% 91% 95% 93% Intake/Output Summary (Last 24 hours) at 05/31/17 1120 Last data filed at 05/31/17 1111 Gross per 24 hour Intake 1260 ml Output 500 ml Net 760 ml CBC: Lab Results Component Value Date WBC 6.35 05/30/2017 RBC 3.24* 05/30/2017 HGB 9.3* 05/30/2017 HCT 28.7* 05/30/2017 MCV 88.8 05/30/2017 MCH 28.8 05/30/2017 MCHC 32.5 05/30/2017 RDW 47.7 05/30/2017 PLT 185 05/30/2017 MPV 8.1 05/30/2017 DIFFTYPE AUTOMATED 05/30/2017 CMP: Lab Results Component Value Date NA 145 05/30/2017 K 3.9 05/30/2017 CL 112* 05/30/2017 CO2 29 05/30/2017 ANIONGAP 8 05/30/2017 GLUF 114* 05/30/2017 BUN 14 05/30/2017 CREATININE 0.8 05/30/2017 BCR 18 05/30/2017 CA 8.3* 05/30/2017 PROT 5.9* 05/30/2017 ALB 2.7* 05/30/2017 GLOB 3.2 05/30/2017 BILITOT 0.2 05/30/2017 ALP 184* 05/30/2017 AST 50* 05/30/2017 ALT 126* 05/30/2017 EGFR >60 05/30/2017 Magnesium: Lab Results Component Value Date MG 2.4 05/30/2017 Phosphorus: Lab Results Component Value Date PHOS 2.8 05/30/2017 PT/INR: Lab Results Component Value Date INR 1.0 05/29/2017 PTT: No results found for: APTT[APTT Imaging @IMAGES@ Scheduled Medications buPROPion 150 mg Oral BID busPIRone 10 mg Oral BID donepezil 10 mg Oral Nightly DULoxetine 60 mg Oral QAM enoxaparin 40 mg Subcutaneous Q24H gabapentin 900 mg Oral TID liothyronine 25 mcg Oral QAM lisinopril 2.5 mg Oral Daily lithium carbonate 300 mg Oral Nightly metoprolol 50 mg Oral Daily pantoprazole 40 mg Oral QAM AC quetiapine 150 mg Oral Nightly senna-docusate 2 tablet Oral BID ziprasidone 60 mg Oral Nightly Continuous Infusions PRN Medications acetaminophen OR acetaminophen, HYDROcodone-acetaminophen, HYDROcodone-acetaminophen, L ORazepam OR LORazepam, morphine OR morphine OR morphine, polyethylene glycol, pr omethazine, zolpidem Erasto Piña MD 05/31/201711:20 AM onversion Transaction, Provider Unknown - 05/31/2017 10:15 AM PDTFormatting of this note might be different from e original. Therapy Progress Note by Marsha Cannon PT at 05/31/17 1015 Author: Marsha Cannon PT Service: (none) Author Type: Physical Therapist Filed: 05/31/17 1102 Date of Service: 05/31/17 1015 Status: Signed Wellness Ambassador: Marsha Cannon PT (Physical Therapist) 05/31/17 1015 PT Last Visit PT Received On 05/31/17 Reason for Treatment LE fracture (L trimalleolar fx 2/2 fall, s/p ORIF) Requires PT Follow Up Yes Follow up PT Only? No Assistance Required 1 person Assurance Associate Needed No Precautions LE Precaution(s) LLE Precautions/WB LLE NWB Other Comments Comments Pt already seated up in w/c when PT arrived in pt's room - pt agreeable to PT this AM. Pt reporting significant pain in L knee and posterior aspect of lower leg - RN aware. P T wanting to focus on ambulation with walker this session, however, pt reporting increased f atigue and UE soreness from w/c mobility in recent days, therefore, pt continued with w/c tr aining this session with focus on propelling chair up a ramp/incline. Prior to leaving pt's room, pt expressed need to use BR prior to mobility - pt completed toilet transfer and toile ting tasks with SBA, though needed extra time to complete. PT noted increased UE shaking dur ing transfer to toilet, likely from fatigue from increased use of UEs for mobility. Pt then propelled w/c from her room over to 4RP via skybridge (which is inclined to simulate ramp) - pt able to propel w/c with SBA on level surfaces, but requires Kim up an incline d/t fatig ue. Following w/c mobility this session, pt returned to room and wished to stay in w/c for a bit - pt sitting in w/c with all needs met/within reach when PT left. Cognition Overall Cognitive Status WFL Orientation Level Oriented Transfers Sit to/from Stand Standby assist Stand Pivot Transfers Standby assist Mobility Weight Bearing Status NWB LLE Ambulation Assistance Not performed (Pt declined) Wheelchair Standby assist;Minimal assist (SBA on level surface, Kim for ramp/incline) Maximal Wheelchair Distance (feet) 300 Total Wheelchair Distance (feet) 300 Distance limited by? Patient's ability Wheelchair Propulsion BUE;RLE Wheelchair Type Standard Wheelchair Surface Linoleum Wheelchair Management Brake Right;Brake Left (Pt needs VCs to remember to set brakes for transfers) Wheelchair Cushion Type Folded blanket Wheelchair Pressure Relief Lateral weight shifting Ramp Minimal assist Modalities Other Therapy Continued education on safe mobility/transfer techniques and using brakes rosa or to starting transfer. Activity Tolerance Activity Tolerance Patient limited by fatigue Nurse Made Aware Yes Safety Devices Safety Devices in Place (Call light in reach) Restraints Initially in Place No Plan Treatment/Interventions Continue per Primary PT POC Progress Progressing toward goals Recommendation Recommendations SNF Barriers to Discharge Home Design (see comment);Lack of Family Support/Training PT Ready for Discharge Yes onver judith Transaction, Provider Unknown - 05/30/2017 4:08 PM PDT Case Management by ZULEYMA Nunes at 05/30/17 1608 Author: ZULEYMA Nunes Service: (none) Author Type: Director Of Laboratory Operations Filed: 05/30/17 1610 Date of Service: 05/30/17 1608 Status: Signed Wellness Ambassador: ZULEYMA Nunes (Director Of Laboratory Operations) 05/30/17 1600 Discharge Planning Evaluation Admitting Diagnosis left ankle dislocation Anticipated Disposition Facility Type [facility] Other (comment) ([facility]) Pt received email from Asher AMOR who states Sammyjuandasia Vinnie, Admissions at [facility] ([phone] ph) who states they have medically accepted Pt. Unf ortunately, Pt will need provide her own transportation, as the facility van is not operatin g on TuesdayMay 31. [employer] p/c left msg with Arturo Birmingham, Admissions at [facility] ph) regarding acceptance of Pt. DCP: [facility] JANEL BROWN, Demand Manager [phone] cell onver judith Transaction, Provider Unknown - 05/30/2017 3:30 PM PDT Therapy Progress Note by Marsha Cannon PT at 05/30/17 1530 Author: Marsha Cannon PT Service: (none) Author Type: Physical Therapist Filed: 05/30/17 1605 Date of Service: 05/30/17 1530 Status: Signed Wellness Ambassador: Marsha Cannon PT (Physical Therapist) 05/30/17 1530 PT Last Visit PT Received On 05/30/17 Reason for Treatment LE fracture (L trimalleolar fx 2/2 fall, s/p ORIF) Requires PT Follow Up Yes Follow up PT Only? No Assistance Required 1 person Assurance Associate Needed No Precautions LE Precaution(s) LLE Precautions/WB LLE NWB Other Comments Comments Pt in bed when PT arrived, pt agreebale to therapy. Pt eager to continue w/c mobil ity/training again today. Pt reports that her current pain is under control and rating sympt oms 1/10 currently. Pt states that she was able to get up to BR in w/c with nsg assist - rep orts no issues with transfers. Pt continues to demonstrate good independence with transfers to/from w/c and either to or away of LLE (surgical side). Pt still needing occasional verbal instruction for managing w/c around corners/turning around, but otherwise able to increase distance in which she propelled the w/c. At end of session, pt returned to bed per her reque st d/t fatigue and wanting to try to nap - pt resting in bed with all needs met/within reach when PT left. Pt tolerated sesson well overall without increased pain reported post session . (Vitals pre- BP 135/83, HR 73 bpm, O2 93% on RA) Cognition Overall Cognitive Status WFL Orientation Level Oriented Bed Mobility Supine to Sit Standby assist (extra time, use of bed rails) Sit to Supine Standby assist Transfers Sit to/from Stand Standby assist Stand Pivot Transfers Standby assist Mobility Weight Bearing Status NWB LLE Ambulation Assistance Not performed Wheelchair Standby assist;Verbal instruction Maximal Wheelchair Distance (feet) 250 Total Wheelchair Distance (feet) 250 Distance limited by? Patient's ability (slow pace) Wheelchair Propulsion BUE;RLE Wheelchair Type Standard Wheelchair Surface Linoleum Wheelchair Management Brake Right;Brake Left Wheelchair Cushion Type Folded blanket Wheelchair Pressure Relief Lateral weight shifting Modalities Other Therapy Education on activity pacing/mobility progression. Activity Tolerance Activity Tolerance Patient limited by fatigue Nurse Made Aware Yes Safety Devices Safety Devices in Place (Call light in reach) Restraints Initially in Place No Plan Treatment/Interventions Continue per Primary PT POC Progress Progressing toward goals Recommendation Recommendations SNF Barriers to Discharge Home Design (see comment);Lack of Family Support/Training PT Ready for Discharge Yes Erasto Sapp MD - 05/30/2017 12:22 PM PDTFormatting of this note might be different from the origi nal. Progress Notes by Erasto Piña MD at 05/30/17 1222 Author: Erasto Piña MD Service: (none) Author Type: Physician Filed: 05/30/17 3195 Date of Service: 05/30/17 122 Status: Addendum Wellness Ambassador: Erasto Piña MD (Physician) Related Notes: Original Note by Erasto Piña MD (Physician) filed at 05/30/17 1226 [facility] Service: Hospitalist Progress Note Hospital Day: LOS: 2 days Consultants: Treatment Team: Consulting Physician: Darci Pedraza MD Admitting Provider: Mehran Michele MD The first problem in assessment is the principal problem. ASSESSMENT/ PLAN 67-year-old female with past medical history of bipolar disorder, schizophrenia, hypertensi on presented with left ankle fracture. 1. Left fibular fracture status post OR and surgery by orthopedic surgery. Appreciate help from same continue with PT OT and pain management on deep vein thrombosis prophylaxis. Possibly might be okay for aspirin 325 bid for deep vein thrombosis prophylaxis at home. Le ft 2. Hypertension: Continue with metoprolol and lisinopril 3. Bipolar disorder and schizophrenia: Continue withWellbutrin SR 150 mg p.o. b.i.d., Arice pt 10 mg at bedtime, Cymbalta 50 mg p.o. q.a.m., gabapentin 900 mg t.i.d., Cytomel 25 mcg q. a.m., [place] 300 mg p.o. at bedtime, and Geodon 80 mg p.o. at bedtime, and Seroquel 150 mg p.o. at bedtime. Per admitting hospitalist medications have been verified with patient and h er pharmacy. Also has been started on BuSpar. 4. Prolonged QTC: Most likely due to above medications. QTC was 480 - 520 and again 480 thi s AM. No evidence of telemetry for last 2 days. Electrolytes have been stable. Also recent e cho reviewed from 03/14. C/w telemetry for 24 more hrs. Discussed with patient about ventricular arrhythmias and sudden cardiac . But current decision to continue with same regimen and monitor as patient reports that she has been stab le on these medications for a long time. 5. Transaminitis most likely due to hepatic steatosis. ultrasound and hepatitis panel negat berenice other high likely possibility could be medication induced. But improving so no changes a t this point and follow-up with PCP as outpatient. 6. Postoperative urinary retention status post Nevarez catheter by urology. Appreciate help. Currently would recommend to continue Nevarez catheter until patient ambulating and voiding t rial at SNF in may be 2 weeks. Outpatient follow-up with urology Disposition: SNF awaiting above. Code Status: Full Code Dictation and geological technical officer or software, [employer], used which may contain error for similar s ounding words even after review. Personal communication requested for any clarification. SUBJECTIVE Events Overnight: . Overall, patient doing okay. Has some mild constipation. We'll add sen na, Colace 2 tabs twice a day denies any nausea, vomiting, shortness of breath. OBJECTIVE General: Well nourished. Psych: Alert and oriented x 3. Calm, cooperative. Cardiovascular: Regular rate and rhythm, no murmurs, no thrills. Normal PMI. Respiratory: Clear to auscultation, no wheezing or crackles, breathing non labored. Gastrointestinal: Soft, non-tender, non-distended, positive bowel sounds. No HSM. Musculoskeletal: Left leg soft cast No edema in bilateral lower extremities. No joint swel ling. Neck: No JVD, Trachea midline. Neurological: Non focal. Motor grossly intact. PROBLEM LIST Principal Problem: Closed fracture of left ankle Active Problems: Hx of bipolar disorder Hx of schizophrenia Abnormal LFTs (liver function tests) Hepatic steatosis PMH Past Medical History Diagnosis Date Ankle dislocation Schizoaffective disorder (HCC) Bipolar affective (HCC) Glaucoma Hypertension Skin cancer Hepatic steatosis 05/28/2017 Thyroid disease HOME MEDICATIONS Prior to Admission medications Medication Sig Start Date End Date Taking? Authorizing Provider buPROPion (WELLBUTRIN SR) 150 MG 12 hr tablet 150 mg 2 (two) times daily. 05/19/17 Yes Hist orical Provider busPIRone (BUSPAR) 10 MG tablet 10 mg 2 (two) times daily. Indications: Anxiety Disorder Yes Historical Provider donepezil (ARICEPT) 10 MG tablet 10 mg nightly. 05/19/17 Yes Historical Provider DULoxetine (CYMBALTA) [address] capsule 60 mg every morning. 05/25/17 Yes Historical Provide r gabapentin (NEURONTIN) 300 MG capsule 900 mg 3 (three) times daily. 05/19/17 Yes Historical Provider liothyronine (CYTOMEL) 25 MCG tablet 25 mcg every morning. 05/25/17 Yes Historical Provider lisinopril (ZESTRIL) 2.5 MG tablet 2.5 mg daily. 05/02/17 Yes Historical Provider lithium carbonate 300 MG capsule 300 mg nightly. 05/19/17 Yes Historical Provider metoprolol (TOPROL-XL) 50 MG 24 hr tablet 50 mg daily. 05/19/17 Yes Historical Provider oxyCODONE-acetaminophen (PERCOCET) 5-325 MG per tablet 1-2 tablets every 4 (four) hours as needed. 05/27/17 Yes Historical Provider quetiapine (SEROQUEL) 300 MG tablet 150 mg nightly. 05/19/17 Yes Historical Provider ziprasidone (GEODON) 60 MG capsule 60 mg nightly. 05/19/17 Yes Historical Provider diclofenac (VOLTAREN) 50 MG EC tablet 50 mg 2 (two) times daily. 05/24/17 Historical Provi ginna LORazepam (ATIVAN) 0.5 MG tablet 0.5 mg 4 (four) times daily as needed. 04/18/17 Historica l Provider pantoprazole (PROTONIX) 40 MG tablet 40 mg every morning before breakfast. 05/24/17 Histor ical Provider DATA Vital Signs: BP 110/55 mmHg | Pulse 67 | Temp(Src) 98 F (36.7 C) (Oral) | Resp 18 | Ht 1.575 m (5' 2 ") | Wt 73.5 kg (162 lb 0.6 oz) | BMI 29.63 kg/m2 | SpO2 92% Filed Vitals: 05/30/17 0412 05/30/17 0621 05/30/17 0727 05/30/17 1115 BP: 101/55 133/62 110/55 Pulse: 57 67 67 Temp: 97.9 F (36.6 C) 98.4 F (36.9 C) 98 F (36.7 C) TempSrc: Oral Oral Oral Resp: Height: Weight: 73.5 kg (162 lb 0.6 oz) SpO2: 98% 91% 92% Intake/Output Summary (Last 24 hours) at 05/30/17 1222 Last data filed at 05/30/17 1010 Gross per 24 hour Intake 1040 ml Output 2800 ml Net -1760 ml CBC: Lab Results Component Value Date WBC 6.35 05/30/2017 RBC 3.24* 05/30/2017 HGB 9.3* 05/30/2017 HCT 28.7* 05/30/2017 MCV 88.8 05/30/2017 MCH 28.8 05/30/2017 MCHC 32.5 05/30/2017 RDW 47.7 05/30/2017 PLT 185 05/30/2017 MPV 8.1 05/30/2017 DIFFTYPE AUTOMATED 05/30/2017 CMP: Lab Results Component Value Date NA 145 05/30/2017 K 3.9 05/30/2017 CL 112* 05/30/2017 CO2 29 05/30/2017 ANIONGAP 8 05/30/2017 GLUF 114* 05/30/2017 BUN 14 05/30/2017 CREATININE 0.8 05/30/2017 BCR 18 05/30/2017 CA 8.3* 05/30/2017 PROT 5.9* 05/30/2017 ALB 2.7* 05/30/2017 GLOB 3.2 05/30/2017 BILITOT 0.2 05/30/2017 ALP 184* 05/30/2017 AST 50* 05/30/2017 ALT 126* 05/30/2017 EGFR >60 05/30/2017 Magnesium: Lab Results Component Value Date MG 2.4 05/30/2017 Phosphorus: Lab Results Component Value Date PHOS 2.8 05/30/2017 PT/INR: Lab Results Component Value Date INR 1.0 05/29/2017 PTT: No results found for: APTT[APTT Imaging @IMAGES@ Scheduled Medications buPROPion 150 mg Oral BID busPIRone 10 mg Oral BID donepezil 10 mg Oral Nightly DULoxetine 60 mg Oral QAM enoxaparin 40 mg Subcutaneous Q24H gabapentin 900 mg Oral TID liothyronine 25 mcg Oral QAM lisinopril 2.5 mg Oral Daily lithium carbonate 300 mg Oral Nightly metoprolol 50 mg Oral Daily pantoprazole 40 mg Oral QAM AC quetiapine 150 mg Oral Nightly senna-docusate 2 tablet Oral BID ziprasidone 60 mg Oral Nightly Continuous Infusions PRN Medications acetaminophen OR acetaminophen, HYDROcodone-acetaminophen, HYDROcodone-acetaminophen, L ORazepam OR LORazepam, morphine OR morphine OR morphine, polyethylene glycol, pr omethazine, zolpidem Erasto Piña MD 05/30/201712:22 PM ampson, Darci Johansen MD - 05/30/2017 9:49 AM PDT Progress Notes by Darci Pedraza MD at 05/30/1749 Author: Darci Pedraza MD Service: (none) Author Type: Physician Filed: 05/30/1752 Date of Service: 05/30/17948 Status: Signed Wellness Ambassador: Darci Pedraza MD (Physician) [facility] Service: Orthopedic Surgery Progress Note Hospital Day: LOS: 2 days Post-Op Day: 2 Days Post-Op SUBJECTIVE Patient Summary: Patient OOB in chair with no complaints. Ankle hurts when transferr ing but comfortable at rest. Used wheelchair this morning and has been NWB. Events Overnight: none Scheduled Medications buPROPion 150 mg Oral BID busPIRone 10 mg Oral BID donepezil 10 mg Oral Nightly DULoxetine 60 mg Oral QAM enoxaparin 40 mg Subcutaneous Q24H gabapentin 900 mg Oral TID liothyronine 25 mcg Oral QAM lisinopril 2.5 mg Oral Daily lithium carbonate 300 mg Oral Nightly metoprolol 50 mg Oral Daily pantoprazole 40 mg Oral QAM AC quetiapine 150 mg Oral Nightly ziprasidone 60 mg Oral Nightly Continuous Infusions PRN Medications acetaminophen OR acetaminophen, HYDROcodone-acetaminophen, HYDROcodone-acetaminophen, L ORazepam OR LORazepam, morphine OR morphine OR morphine, polyethylene glycol, pr omethazine, zolpidem OBJECTIVE Vital Signs: BP 133/62 mmHg | Pulse 67 | Temp(Src) 98.4 F (36.9 C) (Oral) | Resp 18 | Ht 1.575 m (5' 2") | Wt 73.5 kg (162 lb 0.6 oz) | BMI 29.63 kg/m2 | SpO2 91% {EXTENDEDVITALS:[id number] Physical Exam Ortho Exam splint intact. Calves soft. Intact sensation in all toes and 1st web space. DP pulse int act. DATA CBC: Lab Results Component Value Date WBC 6.35 05/30/2017 RBC 3.24* 05/30/2017 HGB 9.3* 05/30/2017 HCT 28.7* 05/30/2017 MCV 88.8 05/30/2017 MCH 28.8 05/30/2017 MCHC 32.5 05/30/2017 RDW 47.7 05/30/2017 PLT 185 05/30/2017 MPV 8.1 05/30/2017 DIFFTYPE AUTOMATED 05/30/2017 PROBLEM LIST Principal Problem: Closed fracture of left ankle Active Problems: Hx of bipolar disorder Hx of schizophrenia Abnormal LFTs (liver function tests) Hepatic steatosis ASSESSMENT & PLAN patient doing well after surgery for left ankle fracture. Continue NWB on LLE. Appreciate hospitalist assistance. Follow up with me in 10-14 days for post of follow up. Disposition: stable Code Status: Full Code Darci Pedraza MD 05/30/2017 onversion Tian saction, Provider Unknown - 05/30/2017 8:15 AM PDTFormatting of this note might be differen t from the original. Therapy Progress Note by Marsha Cannon PT at 05/30/17 0815 Author: Marsha Cannon PT Service: (none) Author Type: Physical Therapist Filed: 05/30/17 1101 Date of Service: 05/30/1715 Status: Signed Wellness Ambassador: Marsha Cannon PT (Physical Therapist) 05/30/17 0815 PT Last Visit PT Received On 05/30/17 Reason for Treatment LE fracture (L trimalleolar fx 2/2 fall, s/p ORIF) Requires PT Follow Up Yes Follow up PT Only? No Focus for Next Treatment Transfer Technique (gait training) Assistance Required 1 person Assurance Associate Needed No Precautions LE Precaution(s) LLE Precautions/WB LLE NWB Other Comments Comments Pt in bed when PT arrived, agreeable to therapy. Pt reporting that pain in L ankle is currently under control with pain rated 3/10 currently. PT discussed plans for today's s ession for w/c mobility or gait training - pt preferred w/c mobility. Pt demonstrating good independence with bed mobility and transfers to/from w/c and maintains WB precautions well. Pt needing some instruction in use of w/c as pt has never used one before. Pt was able to pr opel w/c with mostly SBA, but needing Kim for turning. Pt limited by fatigue and UE weaknes s this session. Pain under control throughout and pt denied any increase post session. Pt tr ansferred to recliner chair at end of session - pt with all needs met/within reach when PT l eft. (Vitals pre- BP 133/62, HR 63 bpm, O2 94% on RA) Cognition Overall Cognitive Status WFL Orientation Level Oriented Bed Mobility Supine to Sit Standby assist (HOB moderately elevated) Transfers Sit to/from Stand Standby assist Stand Pivot Transfers Standby assist Mobility Weight Bearing Status NWB LLE Ambulation Assistance Not performed Wheelchair Standby assist;Minimal assist (Kim + VCs for turns) Maximal Wheelchair Distance (feet) 90 Total Wheelchair Distance (feet) 180 Distance limited by? Patient's ability Wheelchair Propulsion BUE;RLE Wheelchair Type Standard Wheelchair Surface Linoleum Wheelchair Management Brake Right;Brake Left Wheelchair Cushion Type Folded blanket Wheelchair Pressure Relief Lateral weight shifting Modalities Other Therapy Education on safe transfer techniques and w/c mobility. Activity Tolerance Activity Tolerance Patient limited by fatigue Nurse Made Aware Yes Safety Devices Safety Devices in Place (Call light in reach) Restraints Initially in Place No Plan Treatment/Interventions Continue per Primary PT POC Progress Progressing toward goals Recommendation Recommendations SNF Equipment Recommended Walker front wheeled;W/C manual Barriers to Discharge Home Design (see comment);Lack of Family Support/Training (lives alone, stairs to enter house) PT Ready for Discharge Yes onver judith Transaction, Provider Unknown - 05/30/2017 6:39 AM PDT Nurse Progress Note by Elma Silver RN at 05/30/17638 Author: Elma Silver RN Service: (none) Author Type: Registered Nurse Filed: 05/30/17638 Date of Service: 05/30/17638 Status: Signed Wellness Ambassador: Elma Silver RN (Registered Nurse) 24 hour chart check complete Elma Silver, RN Solomon Hutchison MD - 05/29/2017 9:05 PM PDTFormatting of this note might be different from the o riginal. Progress Notes by Solomon Martinez MD at 05/29/172104 Author: Solomon Martinez MD Service: Urology Author Type: Physician Filed: 07/25/17 1312 Date of Service: 05/29/172104 Status: Signed Wellness Ambassador: Solomon Martinez MD (Physician) Related Notes: Original Note by Solomon Martinez MD (Physician) filed at 07/24/172201 [facility] Service: Urology Progress Note Hospital Day: LOS: 1 day Post-Op Day: 1 Day Post-Op SUBJECTIVE Patient Summary: Events Overnight: This 67-year-old wonderful lady had undergone catheter placement fo r urinary retention and difficulty by nursing staff to place the catheter. [facility] and learned that Dr. Alcala had ordered catheter removal. The Fol ey catheter has been removed and she has urinated once at this time. No urinary complaints w ere reported. Scheduled Medications buPROPion 150 mg Oral BID busPIRone 10 mg Oral BID donepezil 10 mg Oral Nightly DULoxetine 60 mg Oral QAM enoxaparin 40 mg Subcutaneous Q24H gabapentin 900 mg Oral TID liothyronine 25 mcg Oral QAM lisinopril 2.5 mg Oral Daily lithium carbonate 300 mg Oral Nightly metoprolol 50 mg Oral Daily pantoprazole 40 mg Oral QAM AC quetiapine 150 mg Oral Nightly ziprasidone 60 mg Oral Nightly Continuous Infusions PRN Medications acetaminophen OR acetaminophen, HYDROcodone-acetaminophen, HYDROcodone-acetaminophen, L ORazepam OR LORazepam, morphine OR morphine OR morphine, polyethylene glycol, pr omethazine, zolpidem OBJECTIVE Vital Signs: BP 119/56 mmHg | Pulse 80 | Temp(Src) 97.5 F (36.4 C) (Oral) | Resp 16 | Ht 1.575 m (5' 2") | Wt 70.308 kg (155 lb) | BMI 28.34 kg/m2 | SpO2 94% Temp: [97.5 F (36.4 C)-98.6 F (37 C)] 97.5 F (36.4 C) (05/29 2002) BP: (109-146)/(54-67) 119/56 mmHg (05/29 2002) Heart Rate: [60-90] 80 (05/29 2002) Resp: [16] 16 (05/29 2002) SpO2: [94 %-100 %] 94 % (05/29 2002) General Appearance: Alert, cooperative, no distress, appears stated age Head: Normocephalic, without obvious abnormality, atraumatic Eyes: PERRL, conjunctiva/corneas clear, EOM's intact, fundi benign, both eyes Back: Symmetric, no curvature, ROM normal, no CVA tenderness Lungs: Clear to auscultation bilaterally, respirations unlabored Chest Wall: No tenderness or deformity Heart: Regular rate and rhythm, S1 and S2 normal, no murmur, rub or gallop Genitalia: normal Abdomen: Soft, non-tender, bowel sounds active all four quadrants, no masses, no organomegaly Extremities: Extremities normal, atraumatic, no cyanosis or edema Pulses: 2+ and symmetric all extremities Skin: Skin color, texture, turgor normal, no rashes or lesions Neurologic: CNII-XII intact, normal strength, sensation and reflexes Throughout DATA CBC: Lab Results Component Value Date WBC 6.17 05/29/2017 RBC 3.78 05/29/2017 HGB 10.9* 05/29/2017 HCT 33.6* 05/29/2017 MCV 88.7 05/29/2017 MCH 28.8 05/29/2017 MCHC 32.5 05/29/2017 RDW 46.4 05/29/2017 PLT 196 05/29/2017 MPV 8.1 05/29/2017 DIFFTYPE MANUAL 05/29/2017 CMP: Lab Results Component Value Date NA 142 05/29/2017 K 4.6 05/29/2017 CL 110* 05/29/2017 CO2 26 05/29/2017 ANIONGAP 11 05/29/2017 GLUF 168* 05/29/2017 BUN 8 05/29/2017 CREATININE 0.7 05/29/2017 BCR 11 05/29/2017 CA 8.4* 05/29/2017 PROT 6.4 05/29/2017 ALB 3.0* 05/29/2017 GLOB 3.4 05/29/2017 BILITOT 0.3 05/29/2017 ALP 266* 05/29/2017 AST 127* 05/29/2017 ALT 190* 05/29/2017 EGFR >60 05/29/2017 X-ray Ankle Left 05/28/2017 This is a non-reportable procedure without a radiologist report and is used for i mage storage only X-ray Ankle Left 05/28/2017 This is a non-reportable procedure without a radiologist report and is used for i mage storage only X-ray Ankle Left 05/28/2017 This is a non-reportable procedure without a radiologist report and is used for i mage storage only X-ray Ankle Left 05/28/2017 This is a non-reportable procedure without a radiologist report and is used for i mage storage only Ultrasound Abdomen, Gallbladder 05/28/2017 KATELYNN JAMES 1950 US ABDOMEN LIMITED 05/28/2017 9:21 AM HISTORY: Incidental f inding of elevated LFTs. TECHNIQUE: Transabdominal ultrasound, grayscale and color flow eval uation. COMPARISON: None. FINDINGS: Visualized pancreatic head and body appear grossly unrem arkable. The tail is not seen. Nonspecific borderline prominence of the pancreatic duct up t o 2.8 mm, with no obvious dilatation of the visualized duct. Liver demonstrates slightly inc reased hepatic echotexture. No CBD is 7.6 mm in diameter. Gallbladder is reportedly surgical ly absent. Hepatopedal flow in the portal veins. Hepatofugal flow in the hepatic veins. Visu alized right kidney appears grossly unremarkable. 05/28/2017 1. Findings suggesting hepatic steatosis. 2. Mild dilatation of the CBD. This i s favored to relate to the absence of gallbladder. Patient is reportedly post cholecystectom y. X-ray C-arm Fluoro Over 1 Hour 05/28/2017 HISTORY: 67 year-old female with fracture distal left fibula. TECHNIQUE: Intrapro cedural fluoroscopy was performed by the operating surgeon. Fluoroscopic views are preserved for documentation. FLUOROSCOPY TIME: 13.4 seconds FLUOROSCOPY DOSE: 0.49 mGy. Total of 4 im ages No prior similar study available for comparison. FINDINGS: Initial images demonstrates a multihole fixation plate spanning the distal left fibula transfixed with multiple cortical type screws there appears to be sabianism of the ankle mortise. Talar dome appears smooth . 05/28/2017 1. ORIF distal left fibular fracture with retained orthopedic hardware. Electron ically signed by Campos Daley MD on 05/28/2017 9:36 PM PROBLEM LIST Patient Active Problem List Diagnosis Closed fracture of left ankle Hx of bipolar disorder Hx of schizophrenia Abnormal LFTs (liver function tests) Hepatic steatosis ASSESSMENT & PLAN In conclusion, this is a 67-year-old lady who has undergone ORIF for her distal left fibula r fracture by Dr. Alcala. Postoperatively, she was noted to be in urinary retention for which several attempts at catheterization had failed, and I placed a Nevarez catheter at the [facility]. The patient had somewhat of a subtle urethral opening which hides underneath her labia mi yamileth. The patient is able to urinate after removal of the catheter. At this time, I will sig n off if the patient will continue to void spontaneously without any further difficulty. I a ppreciate the opportunity to participate in this very nice young lady's care. Code Status: Full Code SOLOMON MARTINEZ MD 05/29/2017 onversion Transacti on, Provider Unknown - 05/29/2017 3:28 PM PDTFormatting of this note might be different fro m the original. Case Management by ZULEYMA Ivory at 05/29/17 1528 Author: ZULEYMA Ivory Service: (none) Author Type: Director Of Laboratory Operations Filed: 05/29/17 1532 Date of Service: 05/29/17 1528 Status: Signed Wellness Ambassador: ZULEYMA Ivory (Director Of Laboratory Operations) 05/29/17 1526 Discharge Planning Evaluation Admitting Diagnosis left ankle fracture & dislocation Readmission No Living Arrangements Alone Support Systems Friends/neighbors Type of Residence Private residence Independent with ADL's Yes Independent with Mobility No-comment (pt did not use DME prior to this injury) Home Care Services No Caregiver after Discharge No Mental Status Oriented Prior functional status Pt drives, was appropriately active for her age prior to falling la st week. Power of Paver No Anticipated Discharge Plan Post Acute Care Needs Other (comment) (SNF) Plan communicated to patient/family Yes Resources Transportation issues Yes (Pt may not have transportation to [place]) Name of Pharmacy [facility] Previous home health equipment No Vascular access device No Ostomy/Drains/Appliances Yes Met with pt to discuss discharge planning, Pt is a 67 y.o., female Pt is not currently participating in any o/p medical services such as PT, wound care or kam lysis. Pt denies taking a blood thinner. Pt does not use home O2 or CPAP. Pt reports that she fell three days ago when she "tripped over her foot," but has not had any other recent falls. Pt sees her PCP regularly. Choice form signed and placed in chart. Pt prefers [facility] in [place] for SNF placem ent. If [facility] is not an option, she would like a SNF and has no preference of faci lity. CM will send referrals to [facility] and all SNFs. Patient's PCP is: HAROLDO DAVIS Patient's insurance: Medicare, Mut of O Coverage concerns: none expressed Medication coverage/concerns: Community resources utilized / needed: Assistance in transportation: A neighbor may be able to assist with transportation, stanley nelson the neighbor works during the day. Identification of any specific education / training: Barriers to Discharge / Alternative housing needed: Pt lives alone, unable to ambulate, PT recommending SNF Anticipated DCP: SNF [facility] Naseem Castillo PA-C - 05/29/2017 10:50 AM PDTFormatting of this note might be differen t from the original. Progress Notes by Naseem eVronica PA-C at 05/29/17 1050 Author: Naseem Veronica PA-C Service: Orthopedic Surgery Author Type: Physician Chencho mitchell - Certified Filed: 05/29/17 1051 Date of Service: 05/29/17 105 Status: Signed Wellness Ambassador: Naseem Veronica PA-C (Physician Mold Capper Helper - Certified) [facility] Service: Orthopedic Surgery Progress Note Hospital Day: LOS:Hospital Day: 2 Post-Op Day: 1 Day Post-Op status post ORIF left ankle fracture SUBJECTIVE Patient Summary: C/o pain in ankle, otherwise feeling well. Events Overnight: No ortho events. OBJECTIVE Vital Signs: Filed Vitals: 05/29/17717 BP: 119/61 Pulse: 60 Temp: 98 F (36.7 C) Resp: 16 SpO2: 100% Exam: Up in chair, NAD. AAOx3 Left leg splint in place, dressing clean, dry. Moves all toes without pain. Toes pink, warm. dp palpable 2+ Calf soft, NT DATA Lab Results Component Value Date WBC 6.17 05/29/2017 HGB 10.9* 05/29/2017 HCT 33.6* 05/29/2017 MCV 88.7 05/29/2017 PLT 196 05/29/2017 Lab Results Component Value Date NA 142 05/29/2017 K 4.6 05/29/2017 CL 110* 05/29/2017 CO2 26 05/29/2017 Lab Results Component Value Date INR 1.0 05/29/2017 INR 1.0 05/28/2017 No results found for: CRP No results found for: ESR ASSESSMENT & PLAN Doing well s/p left ankle ORIF Pain control PT/OT for ambulation, transfers. NWB LLE. Continue splint Patient lives alone, two story building. Recommend CM consult for placement- IPR vs SNF. Ortho will continue to follow. Naseem Veronica PA-C 05/29/2017 10:50 AM Kaleb Sapp MD - 05/29/2017 8:30 AM PDTFormatting of this note might be different from the bethany avila Progress Notes by Erasto Piña MD at 05/29/17829 Author: Erasto Piña MD Service: (none) Author Type: Physician Filed: 05/29/17905 Date of Service: 05/29/17829 Status: Signed Wellness Ambassador: Erasto Piña MD (Physician) [facility] Service: Hospitalist Progress Note Hospital Day: LOS: 1 day Consultants: Treatment Team: Consulting Physician: Darci Pedraza MD Admitting Provider: Mehran Michele MD The first problem in assessment is the principal problem. ASSESSMENT/ PLAN 67-year-old female with past medical history of bipolar disorder, schizophrenia, hypertensi on presented with left ankle fracture. 1. Left fibular fracture status post OR and surgery by orthopedic surgery. Appreciate help from same continue with PT OT and pain management on deep vein thrombosis prophylaxis. Possibly might be okay for aspirin 325 bid for deep vein thrombosis prophylaxis at home 2. Hypertension: Continue with metoprolol and lisinopril 3. Bipolar disorder and schizophrenia: Continue withWellbutrin SR 150 mg p.o. b.i.d., Arice pt 10 mg at bedtime, Cymbalta 50 mg p.o. q.a.m., gabapentin 900 mg t.i.d., Cytomel 25 mcg q. a.m., [place] 300 mg p.o. at bedtime, and Geodon 80 mg p.o. at bedtime, and Seroquel 150 mg p.o. at bedtime. Per admitting hospitalist medications have been verified with patient and h er pharmacy. Also has been started on BuSpar. 4. Prolonged QTC: Most likely due to above medications. QTC was 480 yesterday and 520 this a.m. Currently we will monitor on telemetry to see if patient has any PVCs or arrhythmias q2 4 hours. Electrolytes have been stable. Also recent echo reviewed from 03/14. I will order fo r repeat EKG tomorrow morning. Discussed with patient about ventricular arrhythmias and sudden cardiac . But current decision to continue with same regimen and monitor as patient reports that she has been stab le on these medications prolonged time. Will consider psychiatry evaluation and patient if n eeded pending EKG tomorrow. 5. Transaminitis most likely due to hepatic steatosis. ultrasound and hepatitis panel negat berenice other high likely possibility could be medication induced and again outpatient follow-up with her psychiatrist for same due to her complex medical regimen. 6. Postoperative urinary retention status post Nevarez catheter by urology. Appreciate help Disposition: pending PT eval. Code Status: Full Code Dictation and geological technical officer or software, [employer], used which may contain error for similar s ounding words even after review. Personal communication requested for any clarification. SUBJECTIVE Events Overnight: *Patient reports some pain left leg but improving no nausea vomiting kathy rtness of breath OBJECTIVE General: Well nourished. Psych: Alert and oriented x 3. Calm, cooperative. Cardiovascular: Regular rate and rhythm, no murmurs, no thrills. Normal PMI. Respiratory: Clear to auscultation, no wheezing or crackles, breathing non labored. Gastrointestinal: Soft, non-tender, non-distended, positive bowel sounds. No HSM. Musculoskeletal: Left leg soft cast No edema in bilateral lower extremities. No joint swel ling. Neck: No JVD, Trachea midline. Neurological: Non focal. Motor grossly intact. PROBLEM LIST Principal Problem: Closed fracture of left ankle Active Problems: Hx of bipolar disorder Hx of schizophrenia Abnormal LFTs (liver function tests) Hepatic steatosis PMH Past Medical History Diagnosis Date Ankle dislocation Schizoaffective disorder (HCC) Bipolar affective (HCC) Glaucoma Hypertension Skin cancer Hepatic steatosis 05/28/2017 Thyroid disease HOME MEDICATIONS Prior to Admission medications Medication Sig Start Date End Date Taking? Authorizing Provider buPROPion (WELLBUTRIN SR) 150 MG 12 hr tablet 150 mg 2 (two) times daily. 05/19/17 Yes Hist orical Provider busPIRone (BUSPAR) 10 MG tablet 10 mg 2 (two) times daily. Indications: Anxiety Disorder Yes Historical Provider donepezil (ARICEPT) 10 MG tablet 10 mg nightly. 05/19/17 Yes Historical Provider DULoxetine (CYMBALTA) [address] capsule 60 mg every morning. 05/25/17 Yes Historical Provide r gabapentin (NEURONTIN) 300 MG capsule 900 mg 3 (three) times daily. 05/19/17 Yes Historical Provider liothyronine (CYTOMEL) 25 MCG tablet 25 mcg every morning. 05/25/17 Yes Historical Provider lisinopril (ZESTRIL) 2.5 MG tablet 2.5 mg daily. 05/02/17 Yes Historical Provider lithium carbonate 300 MG capsule 300 mg nightly. 05/19/17 Yes Historical Provider metoprolol (TOPROL-XL) 50 MG 24 hr tablet 50 mg daily. 05/19/17 Yes Historical Provider oxyCODONE-acetaminophen (PERCOCET) 5-325 MG per tablet 1-2 tablets every 4 (four) hours as needed. 05/27/17 Yes Historical Provider quetiapine (SEROQUEL) 300 MG tablet 150 mg nightly. 05/19/17 Yes Historical Provider ziprasidone (GEODON) 60 MG capsule 60 mg nightly. 05/19/17 Yes Historical Provider diclofenac (VOLTAREN) 50 MG EC tablet 50 mg 2 (two) times daily. 05/24/17 Historical Provi ginna LORazepam (ATIVAN) 0.5 MG tablet 0.5 mg 4 (four) times daily as needed. 04/18/17 Historica l Provider pantoprazole (PROTONIX) 40 MG tablet 40 mg every morning before breakfast. 05/24/17 Histor ical Provider DATA Vital Signs: BP 119/61 mmHg | Pulse 60 | Temp(Src) 98 F (36.7 C) (Oral) | Resp 16 | Ht 1.575 m (5' 2 ") | Wt 70.308 kg (155 lb) | BMI 28.34 kg/m2 | SpO2 100% Filed Vitals: 05/28/17 2247 05/29/17 0002 05/29/17 0423 05/29/17 0718 BP: 115/55 115/59 119/61 Pulse: 75 68 60 Temp: 97.8 F (36.6 C) 98.6 F (37 C) 97.6 F (36.4 C) 98 F (36.7 C) TempSrc: Oral Oral Oral Resp: Height: Weight: SpO2: 97% 98% 100% Intake/Output Summary (Last 24 hours) at 05/29/17 0830 Last data filed at 05/29/17 0425 Gross per 24 hour Intake 1804 ml Output 2600 ml Net -796 ml CBC: Lab Results Component Value Date WBC 6.17 05/29/2017 RBC 3.78 05/29/2017 HGB 10.9* 05/29/2017 HCT 33.6* 05/29/2017 MCV 88.7 05/29/2017 MCH 28.8 05/29/2017 MCHC 32.5 05/29/2017 RDW 46.4 05/29/2017 PLT 196 05/29/2017 MPV 8.1 05/29/2017 DIFFTYPE MANUAL 05/29/2017 CMP: Lab Results Component Value Date NA 142 05/29/2017 K 4.6 05/29/2017 CL 110* 05/29/2017 CO2 26 05/29/2017 ANIONGAP 11 05/29/2017 GLUF 168* 05/29/2017 BUN 8 05/29/2017 CREATININE 0.7 05/29/2017 BCR 11 05/29/2017 CA 8.4* 05/29/2017 PROT 6.4 05/29/2017 ALB 3.0* 05/29/2017 GLOB 3.4 05/29/2017 BILITOT 0.3 05/29/2017 ALP 266* 05/29/2017 AST 127* 05/29/2017 ALT 190* 05/29/2017 EGFR >60 05/29/2017 Magnesium: Lab Results Component Value Date MG 2.4 05/29/2017 Phosphorus: Lab Results Component Value Date PHOS 2.8 05/29/2017 PT/INR: Lab Results Component Value Date INR 1.0 05/29/2017 PTT: No results found for: APTT[APTT Imaging @IMAGES@ Scheduled Medications buPROPion 150 mg Oral BID busPIRone 10 mg Oral BID donepezil 10 mg Oral Nightly DULoxetine 60 mg Oral QAM enoxaparin 40 mg Subcutaneous Q24H gabapentin 900 mg Oral TID liothyronine 25 mcg Oral QAM lisinopril 2.5 mg Oral Daily lithium carbonate 300 mg Oral Nightly metoprolol 50 mg Oral Daily pantoprazole 40 mg Oral QAM AC pneumococcal 23-valent vaccine 0.5 mL Intramuscular Once Immunization quetiapine 150 mg Oral Nightly ziprasidone 60 mg Oral Nightly Continuous Infusions sodium chloride (IV) 125 mL/hr at 05/29/17 0152 PRN Medications acetaminophen OR acetaminophen, HYDROcodone-acetaminophen, HYDROcodone-acetaminophen, L ORazepam OR LORazepam, morphine OR morphine OR morphine, polyethylene glycol, pr omethazine, zolpidem Erasto Piña MD 05/29/20178:30 AM onversion Transaction, Provider Unknown - 05/29/2017 7:15 AM PDTFormatting of this note might be different from pierre berger. Therapy Progress Note by Marsha Cannon PT at 05/29/17714 Author: Marsha Cannon PT Service: (none) Author Type: Physical Therapist Filed: 05/29/17 1003 Date of Service: 05/29/17714 Status: Signed Wellness Ambassador: Marsha Cannon PT (Physical Therapist) 05/29/17714 PT Last Visit PT Received On 05/29/17 Reason for Treatment LE fracture (L trimalleolar fx 2/2 fall, s/p ORIF) Requires PT Follow Up Yes Follow up PT Only? No Focus for Next Treatment (gait and/or w/c mobility) PT Eval/Reassessment Date 05/29/17 Assistance Required 1 person Assurance Associate Needed No Home Environment Type of Home Home one story Home Exterior Layout 1-3 steps;Rail on R ascending (3-4 SENA) Home Interior Layout Lives on main level with bedroom/bathroom Bathroom Shower/Tub Tub/shower unit Bathroom Toilet Standard Bathroom Equipment (none) Bathroom Accessibility Accessible via wheelchair Home Equipment None Prior Function Level of [place] Independent with functional mobility;Independent with ADLs;Independe nt with IADLs Falls in Past Year Yes (The fall that led to L ankle fx - denies other recent falls) Lives With Alone Employment Retired for disability RUE Assessment RUE Assessment WFL LUE Assessment LUE Assessment WFL RLE Assessment RLE Assessment WFL LLE Assessment LLE Assessment (Ankle PF/DF 5/5, able to minimally raise LE against gravity ) Cognition Overall Cognitive Status WFL Orientation Level Oriented Sensation Light Touch No apparent deficits Additional Comments Pt reporting 7-8 pain in L ankle- denies pain elsewhere Assessment of Patient Status Assessment of Patient Status Decreased functional mobility;Decreased ADL status;Decreased endurance;Precautions;Pain Prognosis Should progress with skilled therapy intervention Safety Devices Safety Devices in Place (Call light in reach) Restraints Initially in Place No Precautions LE Precaution(s) LLE Precautions/WB LLE NWB Plan Treatment/Interventions Balance training;Bed mobility training;Gait training;Stair training ;Therapeutic exercise;Transfer training;W/C training PT Frequency 5-7x/wk;Twice a day;Once per day Care Duration (# of days) 7 # of days Recommendation Recommendations SNF Equipment Recommended Walker front wheeled;W/C manual Barriers to Discharge Home Design (see comment);Lack of Family Support/Training (lives alone, 3-4 steps to enter house) Recommendation Comments Pt doing fairly well upon initial mobility assessment, however, pt lives alone and pt's home environment may not allow safest d/c plan (d/t stairs and no suppo rt at home) - she may benefit from placement at SNF to improve strength and independence wit h mobility prior to return home. 05/29/17 0715 PT Last Visit PT Received On 05/29/17 Reason for Treatment LE fracture (L trimalleolar fx 2/2 fall, s/p ORIF) Requires PT Follow Up Yes Follow up PT Only? No Focus for Next Treatment (gait and/or w/c mobility) PT Eval/Reassessment Date 05/29/17 Assistance Required 1 person Assurance Associate Needed No Precautions LE Precaution(s) LLE Precautions/WB LLE NWB Other Comments Comments Pt is a 67 y.o. female who presented to [facility] secondary to L ankle pain from recent dislocation - upon imaging, pt found to have L trimalleolar fx; pt is now s/p ORIF and NWB to L LE. Prior to admit, pt was independent with all mobility and states that she has never had to use AE before. PMH significant for schizoactive disorder, bipolar disorder, HTN and s kin CA. Upon PT arrival in pt's room, pt in bed and agreable to therapy. Pt reporting high l evels of pain in L ankle at start of session - RN presented shortly after PT session began t o adminster morning meds, including for pain. Pt demonstrating functional strength, though U Es appear mildly weak. Pt given education on mobility techniques and using walker for transf ers/gait. Pt needs Kim to arise to sitting EOB and otherwise only needed CGA for sit to sta nd and transfer to recliner. Pt does need VCs for hand placement to improve mechanics/safety of transfers. Pt maintained NWB precautions well during stand-pivot transfer to recliner. P t declined further mobility at this time d/t pain and fatigue. Given mild weakness noted in UEs, pt may fatigue quickly with ambulation using FWW, therefore PT recommending trial w/c m obility next session as well for longer distance/community access. Pt sitting in recliner re sting post activity, all needs met/within reach when PT left. PT retrieved ice pack for pt d /t ongoing reports of pain and to assist with swelling/inflammation. RN made aware of pt pos ition/abilities. (Vitals pre- BP 119/61, HR 62 bpm, O2 94% on RA) Cognition Overall Cognitive Status WFL Orientation Level Oriented Bed Mobility Supine to Sit Min assist (1 LE OOB) Transfers Sit to/from Stand Minimal assist (steadying/contact guard) (CGA) Stand Pivot Transfers Minimal assist (steadying/contact guard) (CGA) Mobility Weight Bearing Status NWB LLE Ambulation Assistance MARCY;Not performed (Pt declined ) Wheelchair MARCY (Pt declined) Modalities Modalities Other therapy Other Therapy Education on WB precautions and safe mobility/transfer techniques in regards to precautions. Education/discussion on ongoing PT POC and mobility progression. Activity Tolerance Activity Tolerance Patient limited by fatigue;Patient limited by pain Nurse Made Aware Yes Safety Devices Safety Devices in Place (Call light in reach) Restraints Initially in Place No Plan Treatment/Interventions Balance training;Bed mobility training;Gait training;Stair training ;Therapeutic exercise;Transfer training;W/C training PT Frequency 5-7x/wk;Twice a day;Once per day Care Duration (# of days) 7 # of days Recommendation Recommendations SNF Equipment Recommended Walker front wheeled;W/C manual Barriers to Discharge Home Design (see comment);Lack of Family Support/Training (lives alone, 3-4 steps to enter house) Recommendation Comments Pt doing fairly well upon initial mobility assessment, however, pt lives alone and pt's home environment may not allow safest d/c plan (d/t stairs and no suppo rt at home) - she may benefit from placement at SNF to improve strength and independence wit h mobility prior to return home. Moderate - 09060 High - 16990 History 3 or more personal factors &/or comorbidities Examination 3 elements Clinical Presentation evolving Clinical Decision Making Complexity: Moderate 35847 onver judith Transaction, Provider Unknown - 05/29/2017 7:05 AM PDT Nurse Progress Note by Eula Carey RN at 05/29/17704 Author: Eula Carey RN Service: (none) Author Type: Registered Nurse Filed: 05/29/17710 Date of Service: 05/29/17704 Status: Signed Wellness Ambassador: Eula Carey RN (Registered Nurse) Dr. Piña notified of abnormal EKG result with prolonged QT. Telemetry ordered, tele notifie d of order. Fabby Carey RN onver judith Transaction, Provider Unknown - 05/28/2017 7:02 PM PDT Nurse Progress Note by Kosta Garcia RN at 05/28/171901 Author: Kosta Garcia RN Service: Anesthesiology Author Type: Registered Nicole se Filed: 05/28/171907 Date of Service: 05/28/171901 Status: Addendum Wellness Ambassador: Kosta Garcia RN (Registered Nurse) Related Notes: Original Note by Kosta Garcia RN (Registered Nurse) filed at 0 05/28/171907 1800> Report given to nurse on surgical. Patient states she feels like she needs to void. A ttempted to sit on bedpan and unable to void after 5 minutes. Bladder scanned for 425 in nilsa dder. Call to Dr Milo LOPEZ for patient to have nevarez placed. Orders put in EPIC. 1814> 1st attempt to place nevarez. No urine returned. Attempt patient to reposition, cough a nd bear down. 1829> Attempt with [facility] Baker with [facility]. Still unable to get urine return. Patient then stated she was voiding. Voided small amount and states ow she doesn't need to void anymore. Bladder scanned for [address] to [address] Susan molina is in OR in [facility] will call when c ompleted. 1844> Dr Martinez called and made aware of patient case. Is on way in to see patient. Warm pa cks applied and medicated PRN for pain in foot. 1899> Vianney XIE here to attempt one more placement of nevarez with 12 omani nevarez. Again unab le to place nevarez wiith urine returned. Warm packs again applied. Patient then stated she is peeing again. Visualized small amount of urine coming out. Was able to obtain specimen to s end for testing. Again patient states she feels like she has emptied her bladder. Bladder sc anned for 497ml remaining in bladder. Continue to monitor patient. onver judith Transaction, Provider Unknown - 05/28/2017 2:16 PM PDT Nurse Progress Note by Margaret Thakur RN at 05/28/171415 Author: Margaret Thakur RN Service: (none) Author Type: Registered Nurse Filed: 05/28/17 1417 Date of Service: 05/28/171415 Status: Signed Wellness Ambassador: Margaret Thakur RN (Registered Nurse) Patient off floor to OR. Margaret Thakur RN 05/28/2017 2:16 PM docume nted in this encounter Plan of Treatment Not on filedocumented as of this encounter Procedures + +--------+ + + + | Procedure Name | Priori | Date/Time | Associated Diagnosis | Comments | | | ty | | | | + +--------+ + + + | LITHIUM LEVEL | Routin | 05/30/2017 | | Results for this | | | e | 8:37 AM | | procedure are in the | | | | PDT | | results section. | + +--------+ + + + | ECG 12 LEAD | Routin | 05/30/2017 | | Results for this | | | e | 6:07 AM | | procedure are in the | | | | PDT | | results section. | + +--------+ + + + | EXTERNAL LAB: CBC | Routin | 05/30/2017 | | Results for this | | | e | 5:31 AM | | procedure are in the | | | | PDT | | results section. | + +--------+ + + + | PHOSPHORUS | Routin | 05/30/2017 | | Results for this | | | e | 5:31 AM | | procedure are in the | | | | PDT | | results section. | + +--------+ + + + | MAGNESIUM | Routin | 05/30/2017 | | Results for this | | | e | 5:31 AM | | procedure are in the | | | | PDT | | results section. | + +--------+ + + + | COMPREHENSIVE | Routin | 05/30/2017 | | Results for this | | METABOLIC PANEL | e | 5:31 AM | | procedure are in the | | | | PDT | | results section. | + +--------+ + + + | ECG 12 LEAD | Routin | 05/29/2017 | | Results for this | | | e | 6:32 AM | | procedure are in the | | | | PDT | | results section. | + +--------+ + + + | EXTERNAL LAB: CBC | Routin | 05/29/2017 | | Results for this | | | e | 4:17 AM | | procedure are in the | | | | PDT | | results section. | + +--------+ + + + | PROTIME INR | Routin | 05/29/2017 | | Results for this | | | e | 4:17 AM | | procedure are in the | | | | PDT | | results section. | + +--------+ + + + | PHOSPHORUS | Routin | 05/29/2017 | | Results for this | | | e | 4:17 AM | | procedure are in the | | | | PDT | | results section. | + +--------+ + + + | MAGNESIUM | Routin | 05/29/2017 | | Results for this | | | e | 4:17 AM | | procedure are in the | | | | PDT | | results section. | + +--------+ + + + | COMPREHENSIVE | Routin | 05/29/2017 | | Results for this | | METABOLIC PANEL | e | 4:17 AM | | procedure are in the | | | | PDT | | results section. | + +--------+ + + + | URINALYSIS WITH | Routin | 05/28/2017 | | Results for this | | MICROSCOPIC IF | e | 8:38 PM | | procedure are in the | | INDICATED | | PDT | | results section. | + +--------+ + + + | FL C ARM > 1 HOUR | Routin | 05/28/2017 | | Results for this | | | e | 4:09 PM | | procedure are in the | | | | PDT | | results section. | + +--------+ + + + | ECG 12 LEAD | Routin | 05/28/2017 | | Results for this | | | e | 12:49 PM | | procedure are in the | | | | PDT | | results section. | + +--------+ + + + | US ABDOMEN LIMITED | Routin | 05/28/2017 | | Results for this | | | e | 9:21 AM | | procedure are in the | | | | PDT | | results section. | + +--------+ + + + | EXTERNAL LAB: CBC | Routin | 05/28/2017 | | Results for this | | | e | 6:57 AM | | procedure are in the | | | | PDT | | results section. | + +--------+ + + + | HEPATITIS PANEL, | Routin | 05/28/2017 | | Results for this | | ACUTE | e | 6:57 AM | | procedure are in the | | | | PDT | | results section. | + +--------+ + + + | PROTIME INR | Routin | 05/28/2017 | | Results for this | | | e | 6:57 AM | | procedure are in the | | | | PDT | | results section. | + +--------+ + + + | ACETAMINOPHEN LEVEL | Routin | 05/28/2017 | | Results for this | | | e | 6:57 AM | | procedure are in the | | | | PDT | | results section. | + +--------+ + + + | COMPREHENSIVE | Routin | 05/28/2017 | | Results for this | | METABOLIC PANEL | e | 6:57 AM | | procedure are in the | | | | PDT | | results section. | + +--------+ + + + | ECG 12 LEAD | Routin | 05/28/2017 | | Results for this | | | e | 6:56 AM | | procedure are in the | | | | PDT | | results section. | + +--------+ + + + | XR ANKLE LEFT 3 + VW | Routin | 05/28/2017 | | Results for this | | | e | 4:59 AM | | procedure are in the | | | | PDT | | results section. | + +--------+ + + + | XR ANKLE LEFT 3 + VW | Routin | 05/28/2017 | | Results for this | | | e | 4:59 AM | | procedure are in the | | | | PDT | | results section. | + +--------+ + + + | XR ANKLE LEFT 3 + VW | Routin | 05/26/2017 | | Results for this | | | e | 4:59 AM | | procedure are in the | | | | PDT | | results section. | + +--------+ + + + | XR ANKLE LEFT 3 + VW | Routin | 05/26/2017 | | Results for this | | | e | 4:59 AM | | procedure are in the | | | | PDT | | results section. | + +--------+ + + + documented in this encounter Results [place] Level (05/30/2017 8:37 AM PDT) + + + + + + | Component | Value | Ref Range | Performed | Pathologist | | | | | At | Signature | + + + + + + | Date of | UNKNOWN | | EXTERNAL | | | Last Dose | | | LAB | | + + + + + + | DATE/TIME | UNKNOWN | | EXTERNAL | | | LITHIUM | | | LAB | | | DOSE | | | | | + + + + + + | [place] | 0.23 (L)Comment: Testing | 0.6 - 1.2 | EXTERNAL | | | Level | performed at [facility];[address] | mmol/L | LAB | | | | [facility];[place], [place] | | | | | | [address] | | | | + + + + + + + + | Specimen | + + | Blood specimen | | (specimen) | + + + +---------+ + + | Performing | Address | City/State/Zipcode | Phone Number | | Organization | | | | + +---------+ + + | EXTERNAL LAB | | | | + +---------+ + + ECG 12 lead (05/30/2017 6:07 AM PDT) + + + + + + | Component | Value | Ref Range | Performed | Pathologist | | | | | At | Signature | + + + + + + | DIAGNOSIS: | Sinus bradycardiaLeft | | EXTERNAL | | | | bundle branch | | LAB | | | | blockAbnormal ECGWhen | | | | | | compared with ECG of | | | | | | 29-MAY-2017 06:32,QT has | | | | | | shortenedConfirmed by | | | | | | MARYAM RUIZ ([id number]) on | | | | | | 05/30/2017 10:48:01 AM | | | | + + + + + + + + | Specimen | + + | | + + + + + | Narrative | Performed At | + + + | Historically converted procedure from formerly [facility] | EXTERNAL LAB | + + + + +---------+ + + | Performing | Address | City/State/Zipcode | Phone Number | | Organization | | | | + +---------+ + + | EXTERNAL LAB | | | | + +---------+ + + External Lab: CBC (05/30/2017 5:31 AM PDT) + + + + + + | Component | Value | Ref Range | Performed | Pathologist | | | | | At | Signature | + + + + + + | WBC | 6.35 | 3.80 - 11.00 | EXTERNAL | | | | | K/uL | LAB | | + + + + + + | Red Blood | 3.24 (L) | 3.70 - 5.10 | EXTERNAL | | | Cells | | M/uL | LAB | | | Counted | | | | | + + + + + + | Hemoglobin | 9.3 (L) | 11.3 - 15.5 | EXTERNAL | | | | | g/dL | LAB | | + + + + + + | Hematocrit, | 28.7 (L) | 34.0 - 46.0 % | EXTERNAL | | | POC | | | LAB | | + + + + + + | MCV | 88.8 | 80.0 - 100.0 fl | EXTERNAL | | | | | | LAB | | + + + + + + | MCH | 28.8 | 27.0 - 34.0 pg | EXTERNAL | | | | | | LAB | | + + + + + + | MCHC | 32.5 | 32.0 - 35.5 | EXTERNAL | | | | | g/dL | LAB | | + + + + + + | RDW-CV | 47.7 | 37 - 53 fl | EXTERNAL | | | | | | LAB | | + + + + + + | Platelet | 185 | 150 - 400 K/uL | EXTERNAL | | | Count | | | LAB | | | Plasma | | | | | + + + + + + | MPV | 8.1 | fl | EXTERNAL | | | | | | LAB | | + + + + + + | Differentia | AUTOMATED | | EXTERNAL | | | l Type | | | LAB | | + + + + + + | % Segmented | 59.97 | % | EXTERNAL | | | | | | LAB | | | Neutrophils | | | | | + + + + + + | % | 29.52 | % | EXTERNAL | | | Lymphocytes | | | LAB | | + + + + + + | % Monocytes | 8.73 | % | EXTERNAL | | | | | | LAB | | + + + + + + | % | 1.43 | % | EXTERNAL | | | Eosinophils | | | LAB | | + + + + + + | % Basophils | 0.35 | % | EXTERNAL | | | | | | LAB | | + + + + + + | Absolute | 3.81 | 1.90 - 7.40 | EXTERNAL | | | Segmented | | K/uL | LAB | | | Neutrophils | | | | | + + + + + + | Absolute | 1.87 | 1.00 - 3.90 | EXTERNAL | | | Lymphocytes | | K/uL | LAB | | + + + + + + | Absolute | 0.55 | 0.00 - 0.80 | EXTERNAL | | | Monocytes | | K/uL | LAB | | + + + + + + | Absolute | 0.09 | 0.00 - 0.50 | EXTERNAL | | | Eosinophils | | K/uL | LAB | | + + + + + + | Absolute | 0.02Comment: Testing | 0.00 - 0.10 | EXTERNAL | | | Basophils | performed at [facility], [address] | K/uL | LAB | | | | [address], | | | | | | [place] [address] | | | | + + + + + + + + | Specimen | + + | Blood specimen | | (specimen) | + + + +---------+ + + | Performing | Address | City/State/Zipcode | Phone Number | | Organization | | | | + +---------+ + + | EXTERNAL LAB | | | | + +---------+ + + Phosphorus (05/30/2017 5:31 AM PDT) + + + + + + | Component | Value | Ref Range | Performed | Pathologist | | | | | At | Signature | + + + + + + | PHOSPHORUS | 2.8Comment: Testing | 2.3 - 4.8 mg/dL | EXTERNAL | | | | performed at [facility], [address] | | LAB | | | | [address], | | | | | | [place] [address] | | | | + + + + + + + + | Specimen | + + | Blood specimen | | (specimen) | + + + +---------+ + + | Performing | Address | City/State/Zipcode | Phone Number | | Organization | | | | + +---------+ + + | EXTERNAL LAB | | | | + +---------+ + + Magnesium (05/30/2017 5:31 AM PDT) + + + + + + | Component | Value | Ref Range | Performed | Pathologist | | | | | At | Signature | + + + + + + | Magnesium | 2.4Comment: Testing | 1.7 - 2.4 mg/dL | EXTERNAL | | | | performed at [facility], [address] | | LAB | | | | [address], | | | | | | [place] [address] | | | | + + + + + + + + | Specimen | + + | Blood specimen | | (specimen) | + + + +---------+ + + | Performing | Address | City/State/Zipcode | Phone Number | | Organization | | | | + +---------+ + + | EXTERNAL LAB | | | | + +---------+ + + Comprehensive Metabolic Panel (05/30/2017 5:31 AM PDT) + + + + + + | Component | Value | Ref Range | Performed | Pathologist | | | | | At | Signature | + + + + + + | Na | 145 | 135 - 145 | EXTERNAL | | | | | mmol/L | LAB | | + + + + + + | K | 3.9 | 3.5 - 4.9 | EXTERNAL | | | | | mmol/L | LAB | | + + + + + + | Cl | 112 (H) | 99 - 109 mmol/L | EXTERNAL | | | | | | LAB | | + + + + + + | CO2 | 29 | 23 - 32 mmol/L | EXTERNAL | | | | | | LAB | | + + + + + + | Anion Gap | 8 | 5 - 20 mmol/L | EXTERNAL | | | | | | LAB | | + + + + + + | Glucose, | 114 (H) | 65 - 99 mg/dL | EXTERNAL | | | Fasting | | | LAB | | + + + + + + | BUN | 14 | 8 - 25 mg/dL | EXTERNAL | | | | | | LAB | | + + + + + + | Creatinine | 0.8 | 0.50 - 1.00 | EXTERNAL | | | | | mg/dL | LAB | | + + + + + + | BUN/Creatin | 18 | | EXTERNAL | | | ine Ratio | | | LAB | | + + + + + + | Calcium | 8.3 (L) | 8.5 - 10.5 | EXTERNAL | | | | | mg/dL | LAB | | + + + + + + | Protein, | 5.9 (L) | 6.3 - 8.2 g/dL | EXTERNAL | | | Total | | | LAB | | + + + + + + | Albumin | 2.7 (L) | 3.3 - 4.8 g/dL | EXTERNAL | | | | | | LAB | | + + + + + + | Globulin | 3.2 | 1.3 - 4.9 g/dL | EXTERNAL | | | | | | LAB | | + + + + + + | A/G Ratio | 0.8 (L) | 1.0 - 2.4 | EXTERNAL | | | | | | LAB | | + + + + + + | Bilirubin | 0.2 | 0.1 - 1.5 mg/dL | EXTERNAL | | | Total | | | LAB | | + + + + + + | ALP, | 184 (H) | 35 - 115 U/L | EXTERNAL | | | External | | | LAB | | + + + + + + | AST | 50 (H) | 10 - 45 U/L | EXTERNAL | | | | | | LAB | | + + + + + + | ALT | 126 (H) | 10 - 65 U/L | EXTERNAL | | | | | | LAB | | + + + + + + | Estimated | >60Comment: GFR <60: | mL/min/1.73m2 | EXTERNAL | | | GFR | CHRONIC KIDNEY DISEASE, | | LAB | | | | IF FOUND OVER A 3 MONTH | | | | | | PERIOD.GFR <15: KIDNEY | | | | | | FAILURE.FOR | | | | | | AMERICANS, MULTIPLY THE | | | | | | CALCULATED GFR BY | | | | | | 1.210.Testing performed | | | | | | at [facility], [address] | | | | | | [address], | | | | | | [place] [address] | | | | + + + + + + + + | Specimen | + + | Blood specimen | | (specimen) | + + + +---------+ + + | Performing | Address | City/State/Zipcode | Phone Number | | Organization | | | | + +---------+ + + | EXTERNAL LAB | | | | + +---------+ + + ECG 12 lead (05/29/2017 6:32 AM PDT) + + + + + + | Component | Value | Ref Range | Performed | Pathologist | | | | | At | Signature | + + + + + + | DIAGNOSIS: | Normal sinus rhythmLeft | | EXTERNAL | | | | bundle branch | | LAB | | | | blockAbnormal ECGWhen | | | | | | compared with ECG of | | | | | | 28-MAY-2017 12:49,T wave | | | | | | inversion less evident | | | | | | in Lateral leadsQT has | | | | | | lengthenedConfirmed by | | | | | | MARVIN GRIGGS ([id number]) on | | | | | | 05/29/2017 6:07:33 PM | | | | + + + + + + + + | Specimen | + + | | + + + + + | Narrative | Performed At | + + + | Historically converted procedure from formerly [facility] | EXTERNAL LAB | + + + + +---------+ + + | Performing | Address | City/State/Zipcode | Phone Number | | Organization | | | | + +---------+ + + | EXTERNAL LAB | | | | + +---------+ + + Protime INR (05/29/2017 4:17 AM PDT) + + + + + + | Component | Value | Ref Range | Performed | Pathologist | | | | | At | Signature | + + + + + + | INR | 1.0Comment: REFERENCE | | EXTERNAL | | | | RANGE:0.9 - 1.2 | | LAB | | | | NON-ANTICOAGULATED2.0 | | | | | | - 3.0 ALL OTHER | | | | | | THERAPEUTIC | | | | | | INDICATIONS2.5 - 3.5 | | | | | | MECHANICAL HEART VALVES, | | | | | | RECURRENT OR SYSTEMIC | | | | | | EMBOLISMTesting | | | | | | performed at [facility];[address] | | | | | [address];[place], [place] | | | | | | [address] | | | | + + + + + + + + | Specimen | + + | Blood specimen | | (specimen) | + + + +---------+ + + | Performing | Address | City/State/Zipcode | Phone Number | | Organization | | | | + +---------+ + + | EXTERNAL LAB | | | | + +---------+ + + External Lab: CBC (05/29/2017 4:17 AM PDT) + + + + + + | Component | Value | Ref Range | Performed | Pathologist | | | | | At | Signature | + + + + + + | WBC | 6.17 | 3.80 - 11.00 | EXTERNAL | | | | | K/uL | LAB | | + + + + + + | Red Blood | 3.78 | 3.70 - 5.10 | EXTERNAL | | | Cells | | M/uL | LAB | | | Counted | | | | | + + + + + + | Hemoglobin | 10.9 (L) | 11.3 - 15.5 | EXTERNAL | | | | | g/dL | LAB | | + + + + + + | Hematocrit, | 33.6 (L) | 34.0 - 46.0 % | EXTERNAL | | | POC | | | LAB | | + + + + + + | MCV | 88.7 | 80.0 - 100.0 fl | EXTERNAL | | | | | | LAB | | + + + + + + | MCH | 28.8 | 27.0 - 34.0 pg | EXTERNAL | | | | | | LAB | | + + + + + + | MCHC | 32.5 | 32.0 - 35.5 | EXTERNAL | | | | | g/dL | LAB | | + + + + + + | RDW-CV | 46.4 | 37 - 53 fl | EXTERNAL | | | | | | LAB | | + + + + + + | Platelet | 196 | 150 - 400 K/uL | EXTERNAL | | | Count | | | LAB | | | Plasma | | | | | + + + + + + | MPV | 8.1 | fl | EXTERNAL | | | | | | LAB | | + + + + + + | Differentia | MANUAL | | EXTERNAL | | | l Type | | | LAB | | + + + + + + | Segmented | 80 | % | EXTERNAL | | | Neutrophils | | | LAB | | | Manual | | | | | + + + + + + | Lymphocytes | 12 | % | EXTERNAL | | | Manual | | | LAB | | + + + + + + | % Atypical | 6 | % | EXTERNAL | | | Lymphocytes | | | LAB | | + + + + + + | Monocytes | 2 | % | EXTERNAL | | | Manual | | | LAB | | + + + + + + | Absolute | 4.94 | 1.90 - 7.40 | EXTERNAL | | | Neutrophils | | K/uL | LAB | | + + + + + + | Absolute | 0.74 (L) | 1.00 - 3.90 | EXTERNAL | | | Lymphocytes | | K/uL | LAB | | + + + + + + | Absolute | 0.37 (H) | K/uL | EXTERNAL | | | Atypical | | | LAB | | | Lymphocytes | | | | | + + + + + + | Absolute | 0.12 | 0.00 - 0.80 | EXTERNAL | | | Monocytes | | K/uL | LAB | | + + + + + + | RBC | 1+Comment: TOXIC | | EXTERNAL | | | Morphology | GRANULATIONRBC AND PLT | | LAB | | | | MORPHOLOGY APPEAR | | | | | | NORMALTesting performed | | | | | | at [facility], [address] | | | | | | [address], | | | | | | [place] [address] | | | | + + + + + + + + | Specimen | + + | Blood specimen | | (specimen) | + + + +---------+ + + | Performing | Address | City/State/Zipcode | Phone Number | | Organization | | | | + +---------+ + + | EXTERNAL LAB | | | | + +---------+ + + Phosphorus (05/29/2017 4:17 AM PDT) + + + + + + | Component | Value | Ref Range | Performed | Pathologist | | | | | At | Signature | + + + + + + | PHOSPHORUS | 2.8Comment: Testing | 2.3 - 4.8 mg/dL | EXTERNAL | | | | performed at [facility], [address] | | LAB | | | | [address], | | | | | | [place] [address] | | | | + + + + + + + + | Specimen | + + | Blood specimen | | (specimen) | + + + +---------+ + + | Performing | Address | City/State/Zipcode | Phone Number | | Organization | | | | + +---------+ + + | EXTERNAL LAB | | | | + +---------+ + + Magnesium (05/29/2017 4:17 AM PDT) + + + + + + | Component | Value | Ref Range | Performed | Pathologist | | | | | At | Signature | + + + + + + | Magnesium | 2.4Comment: Testing | 1.7 - 2.4 mg/dL | EXTERNAL | | | | performed at [facility], [address] | | LAB | | | | [address], | | | | | | [place] [address] | | | | + + + + + + + + | Specimen | + + | Blood specimen | | (specimen) | + + + +---------+ + + | Performing | Address | City/State/Zipcode | Phone Number | | Organization | | | | + +---------+ + + | EXTERNAL LAB | | | | + +---------+ + + Comprehensive Metabolic Panel (05/29/2017 4:17 AM PDT) + + + + + + | Component | Value | Ref Range | Performed | Pathologist | | | | | At | Signature | + + + + + + | Na | 142 | 135 - 145 | EXTERNAL | | | | | mmol/L | LAB | | + + + + + + | K | 4.6 | 3.5 - 4.9 | EXTERNAL | | | | | mmol/L | LAB | | + + + + + + | Cl | 110 (H) | 99 - 109 mmol/L | EXTERNAL | | | | | | LAB | | + + + + + + | CO2 | 26 | 23 - 32 mmol/L | EXTERNAL | | | | | | LAB | | + + + + + + | Anion Gap | 11 | 5 - 20 mmol/L | EXTERNAL | | | | | | LAB | | + + + + + + | Glucose, | 168 (H) | 65 - 99 mg/dL | EXTERNAL | | | Fasting | | | LAB | | + + + + + + | BUN | 8 | 8 - 25 mg/dL | EXTERNAL | | | | | | LAB | | + + + + + + | Creatinine | 0.7 | 0.50 - 1.00 | EXTERNAL | | | | | mg/dL | LAB | | + + + + + + | BUN/Creatin | 11 | | EXTERNAL | | | ine Ratio | | | LAB | | + + + + + + | Calcium | 8.4 (L) | 8.5 - 10.5 | EXTERNAL | | | | | mg/dL | LAB | | + + + + + + | Protein, | 6.4 | 6.3 - 8.2 g/dL | EXTERNAL | | | Total | | | LAB | | + + + + + + | Albumin | 3.0 (L) | 3.3 - 4.8 g/dL | EXTERNAL | | | | | | LAB | | + + + + + + | Globulin | 3.4 | 1.3 - 4.9 g/dL | EXTERNAL | | | | | | LAB | | + + + + + + | A/G Ratio | 0.9 (L) | 1.0 - 2.4 | EXTERNAL | | | | | | LAB | | + + + + + + | Bilirubin | 0.3 | 0.1 - 1.5 mg/dL | EXTERNAL | | | Total | | | LAB | | + + + + + + | ALP, | 266 (H) | 35 - 115 U/L | EXTERNAL | | | External | | | LAB | | + + + + + + | AST | 127 (H) | 10 - 45 U/L | EXTERNAL | | | | | | LAB | | + + + + + + | ALT | 190 (H) | 10 - 65 U/L | EXTERNAL | | | | | | LAB | | + + + + + + | Estimated | >60Comment: GFR <60: | mL/min/1.73m2 | EXTERNAL | | | GFR | CHRONIC KIDNEY DISEASE, | | LAB | | | | IF FOUND OVER A 3 MONTH | | | | | | PERIOD.GFR <15: KIDNEY | | | | | | FAILURE.FOR | | | | | | AMERICANS, MULTIPLY THE | | | | | | CALCULATED GFR BY | | | | | | 1.210.Testing performed | | | | | | at [facility], [address] | | | | | | [address], | | | | | | [place] [address] | | | | + + + + + + + + | Specimen | + + | Blood specimen | | (specimen) | + + + +---------+ + + | Performing | Address | City/State/Zipcode | Phone Number | | Organization | | | | + +---------+ + + | EXTERNAL LAB | | | | + +---------+ + + Urinalysis with Microscopic if Indicated (05/28/2017 8:38 PM PDT) + + + + + + | Component | Value | Ref Range | Performed | Pathologist | | | | | At | Signature | + + + + + + | Color | YELLOW | | EXTERNAL | | | | | | LAB | | + + + + + + | Clarity | CLEAR | | EXTERNAL | | | | | | LAB | | + + + + + + | Specific | 1.017 | 1.002 - 1.030 | EXTERNAL | | | [place], | | | LAB | | | Urine | | | | | + + + + + + | Leukocyte | NEGATIVE | | EXTERNAL | | | Esterase, | | | LAB | | | Urine | | | | | + + + + + + | Nitrite, | NEGATIVE | | EXTERNAL | | | Urine | | | LAB | | + + + + + + | Urobilinoge | 2.0 (H) | mg/dL | EXTERNAL | | | n, Urine | | | LAB | | + + + + + + | Protein, | NEGATIVE | mg/dL | EXTERNAL | | | Urine | | | LAB | | + + + + + + | pH, Urine | 5.0 | 5.0 - 8.0 | EXTERNAL | | | | | | LAB | | + + + + + + | Blood, | NEGATIVE | | EXTERNAL | | | Urine | | | LAB | | + + + + + + | Ketones | TRACE (A) | mg/dL | EXTERNAL | | | | | | LAB | | + + + + + + | Bilirubin, | NEGATIVE | | EXTERNAL | | | Urine | | | LAB | | + + + + + + | Glucose, | NEGATIVEComment: Testing | mg/dL | EXTERNAL | | | Urine | performed at [facility];[address] | | LAB | | | | [address];[place] | | | | | | [address] | | | | + + + + + + + + | Specimen | + + | Urine specimen | | (specimen) | + + + +---------+ + + | Performing | Address | City/State/Zipcode | Phone Number | | Organization | | | | + +---------+ + + | EXTERNAL LAB | | | | + +---------+ + + FL C-Arm > 1 Hour (05/28/2017 4:09 PM PDT) + + | Specimen | + + | | + + + + + | Impressions | Performed At | + + + | 1. ORIF distal left fibular fracture with retained orthopedic | | | hardware. Electronically signed by Campos Daley MD on | | | 05/28/2017 9:36 PM | | + + + + + + | Narrative | Performed At | + + + | HISTORY: 67 year-old female with fracture distal left fibula. | | | TECHNIQUE: Intraprocedural fluoroscopy was performed by the operating | | | surgeon. Fluoroscopic views are preserved for documentation. | | | FLUOROSCOPY TIME: 13.4 seconds FLUOROSCOPY DOSE: 0.49 mGy. | | | Total of 4 images No prior similar study available for comparison. | | | FINDINGS: Initial images demonstrates a multihole fixation plate | | | spanning the distal left fibula transfixed with multiple cortical type | | | screws there appears to be sabianism of the ankle mortise. Talar | | | dome appears smooth. | | + + + + + | Procedure Note | + + | Faraz, Rad Conversion - 07/12/2019 8:04 AM PDT HISTORY: 67 year-old female with | | fracture distal left fibula. TECHNIQUE: Intraprocedural fluoroscopy was performed by the | | operating surgeon. Fluoroscopic views are preserved for documentation. FLUOROSCOPY | | TIME:13.4 seconds FLUOROSCOPY DOSE:0.49 mGy.Total of 4 imagesNo prior similar study | | available for comparison. FINDINGS:Initial images demonstrates a multihole fixation | | plate spanning the distal left fibula transfixed with multiple cortical type screws | | there appears to be sabianism of the ankle mortise. Talar dome appears smooth. | | IMPRESSION: 1. ORIF distal left fibular fracture with retained orthopedic hardware. | | | |Total of 4 images | |No prior similar study available for comparison. | | | |FINDINGS: | |Initial images demonstrates a multihole fixation plate spanning the distal left fibula tian sfixed with multiple cortical type screws there appears to be sabianism of the ankle morti se. Talar dome appears smooth. | | | |IMPRESSION: | |1. ORIF distal left fibular fracture with retained orthopedic hardware. | | | | | + + ECG 12 lead (05/28/2017 12:49 PM PDT) + + + + + + | Component | Value | Ref Range | Performed | Pathologist | | | | | At | Signature | + + + + + + | DIAGNOSIS: | Normal sinus rhythmLeft | | EXTERNAL | | | | bundle branch | | LAB | | | | blockAbnormal ECGNo | | | | | | previous ECGs | | | | | | availableConfirmed by | | | | | | MARVIN GRIGGS ([id number]) on | | | | | | 05/28/2017 3:34:22 PM | | | | + + + + + + + + | Specimen | + + | | + + + + + | Narrative | Performed At | + + + | Historically converted procedure from [facility] environment | EXTERNAL LAB | + + + + +---------+ + + | Performing | Address | City/State/Zipcode | Phone Number | | Organization | | | | + +---------+ + + | EXTERNAL LAB | | | | + +---------+ + + US Abdomen Limited (05/28/2017 9:21 AM PDT) + + | Specimen | + + | | + + + + + | Impressions | Performed At | + + + | 1. Findings suggesting hepatic steatosis. 2. Mild dilatation of | | | the CBD. This is favored to relate to the absence of gallbladder. | | | Patient is reportedly post cholecystectomy. | | + + + + + + | Narrative | Performed At | + + + | [facility] 1950 US ABDOMEN LIMITED 05/28/2017 9:21 AM | | | HISTORY: Incidental finding of elevated LFTs. TECHNIQUE: | | | Transabdominal ultrasound, grayscale and color flow evaluation. | | | COMPARISON: None. FINDINGS: Visualized pancreatic head and body | | | appear grossly unremarkable. The tail is not seen. Nonspecific | | | borderline prominence of the pancreatic duct up to 2.8 mm, with no | | | obvious dilatation of the visualized duct. Liver demonstrates | | | slightly increased hepatic echotexture. No CBD is 7.6 mm in diameter. | | | Gallbladder is reportedly surgically absent. Hepatopedal flow in the | | | portal veins. Hepatofugal flow in the hepatic veins. Visualized | | | right kidney appears grossly unremarkable. | | + + + + + | Procedure Note | + + | Jose Ruth Conversion - 07/12/2019 8:04 AM PDT KATELYNN NICKEllen1952US ABDOMEN | | LIMITED05/28/2017 9:21 AM HISTORY: Incidental finding of elevated LFTs. TECHNIQUE: | | Transabdominal ultrasound, grayscale and color flow evaluation. COMPARISON: None. | | FINDINGS: Visualized pancreatic head and body appear grossly unremarkable. The tail is | | not seen. Nonspecific borderline prominence of the pancreatic duct up to 2.8 mm, with no | | obvious dilatation of the visualized duct. Liver demonstrates slightly increased | | hepatic echotexture. No CBD is 7.6 mm in diameter. Gallbladder is reportedly surgically | | absent. Hepatopedal flow in the portal veins. Hepatofugal flow in the hepatic veins. | | Visualized right kidney appears grossly unremarkable. IMPRESSION: 1. Findings | | suggesting hepatic steatosis.2. Mild dilatation of the CBD. This is favored to relate | | to the absence of gallbladder. Patient is reportedly post cholecystectomy. | | | | | |Liver demonstrates slightly increased hepatic echotexture. No CBD is 7.6 mm in diameter. Ga llbladder is reportedly surgically absent. Hepatopedal flow in the portal veins. Hepatofugal flow in the hepatic veins. | | | |Visualized right kidney appears grossly unremarkable. | | | |IMPRESSION: | |1. Findings suggesting hepatic steatosis. | |2. Mild dilatation of the CBD. This is favored to relate to the absence of gallbladder. Pa burkent is reportedly post cholecystectomy. | | | | | + + Hepatitis Panel, Acute (05/28/2017 6:57 AM PDT) + + + + + + | Component | Value | Ref Range | Performed | Pathologist | | | | | At | Signature | + + + + + + | HEP A IGM | NON REACTIVE | | EXTERNAL | | | | | | LAB | | + + + + + + | HEP B | NON REACTIVE | | EXTERNAL | | | SURFACE | | | LAB | | | ANTIBODY | | | | | + + + + + + | HEP B CORE | NON REACTIVE | | EXTERNAL | | | IgM | | | LAB | | + + + + + + | HCV Ab | NON REACTIVE | | EXTERNAL | | | | | | LAB | | + + + + + + | Hepatitis | No serologic evidence of | | EXTERNAL | | | Interp.: | HAV, HBV, or HCV | | LAB | | | | infection.Comment: | | | | | | Testing performed at | | | | | | [facility], [address] | | | | | | [place] | | | | | | [address] | | | | + + + + + + + + | Specimen | + + | Blood specimen | | (specimen) | + + + +---------+ + + | Performing | Address | City/State/Zipcode | Phone Number | | Organization | | | | + +---------+ + + | EXTERNAL LAB | | | | + +---------+ + + Protime INR (05/28/2017 6:57 AM PDT) + + + + + + | Component | Value | Ref Range | Performed | Pathologist | | | | | At | Signature | + + + + + + | INR | 1.0Comment: REFERENCE | | EXTERNAL | | | | RANGE:0.9 - 1.2 | | LAB | | | | NON-ANTICOAGULATED2.0 | | | | | | - 3.0 ALL OTHER | | | | | | THERAPEUTIC | | | | | | INDICATIONS2.5 - 3.5 | | | | | | MECHANICAL HEART VALVES, | | | | | | RECURRENT OR SYSTEMIC | | | | | | EMBOLISMTesting | | | | | | performed at [facility];[address] | | | | | [address];[place], [place] | | | | | | [address] | | | | + + + + + + + + | Specimen | + + | Blood specimen | | (specimen) | + + + +---------+ + + | Performing | Address | City/State/Zipcode | Phone Number | | Organization | | | | + +---------+ + + | EXTERNAL LAB | | | | + +---------+ + + External Lab: ENRIQUE (05/28/2017 6:57 AM PDT) + + + + + + | Component | Value | Ref Range | Performed | Pathologist | | | | | At | Signature | + + + + + + | WBC | 5.68 | 3.80 - 11.00 | EXTERNAL | | | | | K/uL | LAB | | + + + + + + | Red Blood | 3.99 | 3.70 - 5.10 | EXTERNAL | | | Cells | | M/uL | LAB | | | Counted | | | | | + + + + + + | Hemoglobin | 11.4 | 11.3 - 15.5 | EXTERNAL | | | | | g/dL | LAB | | + + + + + + | Hematocrit, | 34.1 | 34.0 - 46.0 % | EXTERNAL | | | POC | | | LAB | | + + + + + + | MCV | 85.3 | 80.0 - 100.0 fl | EXTERNAL | | | | | | LAB | | + + + + + + | MCH | 28.5 | 27.0 - 34.0 pg | EXTERNAL | | | | | | LAB | | + + + + + + | MCHC | 33.4 | 32.0 - 35.5 | EXTERNAL | | | | | g/dL | LAB | | + + + + + + | RDW-CV | 45.5 | 37 - 53 fl | EXTERNAL | | | | | | LAB | | + + + + + + | Platelet | 200 | 150 - 400 K/uL | EXTERNAL | | | Count | | | LAB | | | Plasma | | | | | + + + + + + | MPV | 7.6 | fl | EXTERNAL | | | | | | LAB | | + + + + + + | Differentia | AUTOMATED | | EXTERNAL | | | l Type | | | LAB | | + + + + + + | % Segmented | 71.24 | % | EXTERNAL | | | | | | LAB | | | Neutrophils | | | | | + + + + + + | % | 17.72 | % | EXTERNAL | | | Lymphocytes | | | LAB | | + + + + + + | % Monocytes | 8.37 | % | EXTERNAL | | | | | | LAB | | + + + + + + | % | 2.05 | % | EXTERNAL | | | Eosinophils | | | LAB | | + + + + + + | % Basophils | 0.62 | % | EXTERNAL | | | | | | LAB | | + + + + + + | Absolute | 4.04 | 1.90 - 7.40 | EXTERNAL | | | Segmented | | K/uL | LAB | | | Neutrophils | | | | | + + + + + + | Absolute | 1.01 | 1.00 - 3.90 | EXTERNAL | | | Lymphocytes | | K/uL | LAB | | + + + + + + | Absolute | 0.48 | 0.00 - 0.80 | EXTERNAL | | | Monocytes | | K/uL | LAB | | + + + + + + | Absolute | 0.12 | 0.00 - 0.50 | EXTERNAL | | | Eosinophils | | K/uL | LAB | | + + + + + + | Absolute | 0.04Comment: Testing | 0.00 - 0.10 | EXTERNAL | | | Basophils | performed at [facility];[address] | [address] | LAB | | | | [address];[place] | | | | | | [address] | | | | + + + + + + + + | Specimen | + + | Blood specimen | | (specimen) | + + + +---------+ + + | Performing | Address | City/State/Zipcode | Phone Number | | Organization | | | | + +---------+ + + | EXTERNAL LAB | | | | + +---------+ + + Acetaminophen Level (05/28/2017 6:57 AM PDT) + + + + + + | Component | Value | Ref Range | Performed | Pathologist | | | | | At | Signature | + + + + + + | ACETAMINOPH | <2.0 (L)Comment: Testing | 10.0 - 30.0 | EXTERNAL | | | EN LEVEL | performed at [facility];[address] | ug/mL | LAB | | | | [address];[place], [place] | | | | | | [address] | | | | + + + + + + + + | Specimen | + + | Blood specimen | | (specimen) | + + + +---------+ + + | Performing | Address | City/State/Zipcode | Phone Number | | Organization | | | | + +---------+ + + | EXTERNAL LAB | | | | + +---------+ + + Comprehensive Metabolic Panel (05/28/2017 6:57 AM PDT) + + + + + + | Component | Value | Ref Range | Performed | Pathologist | | | | | At | Signature | + + + + + + | Na | 140 | 135 - 145 | EXTERNAL | | | | | mmol/L | LAB | | + + + + + + | K | 4.3 | 3.5 - 4.9 | EXTERNAL | | | | | mmol/L | LAB | | + + + + + + | Cl | 109 | 99 - 109 mmol/L | EXTERNAL | | | | | | LAB | | + + + + + + | CO2 | 27 | 23 - 32 mmol/L | EXTERNAL | | | | | | LAB | | + + + + + + | Anion Gap | 9 | 5 - 20 mmol/L | EXTERNAL | | | | | | LAB | | + + + + + + | Glucose, | 127 (H) | 65 - 99 mg/dL | EXTERNAL | | | Fasting | | | LAB | | + + + + + + | BUN | 11 | 8 - 25 mg/dL | EXTERNAL | | | | | | LAB | | + + + + + + | Creatinine | 0.79 | 0.50 - 1.00 | EXTERNAL | | | | | mg/dL | LAB | | + + + + + + | BUN/Creatin | 13 | | EXTERNAL | | | ine Ratio | | | LAB | | + + + + + + | Calcium | 8.1 (L) | 8.5 - 10.5 | EXTERNAL | | | | | mg/dL | LAB | | + + + + + + | Protein, | 6.8 | 6.3 - 8.2 g/dL | EXTERNAL | | | Total | | | LAB | | + + + + + + | Albumin | 3.2 (L) | 3.3 - 4.8 g/dL | EXTERNAL | | | | | | LAB | | + + + + + + | Globulin | 3.6 | 1.3 - 4.9 g/dL | EXTERNAL | | | | | | LAB | | + + + + + + | A/G Ratio | 0.9 (L) | 1.0 - 2.4 | EXTERNAL | | | | | | LAB | | + + + + + + | Bilirubin | 0.5 | 0.1 - 1.5 mg/dL | EXTERNAL | | | Total | | | LAB | | + + + + + + | ALP, | 261 (H) | 35 - 115 U/L | EXTERNAL | | | External | | | LAB | | + + + + + + | AST | 232 (H) | 10 - 45 U/L | EXTERNAL | | | | | | LAB | | + + + + + + | ALT | 197 (H) | 10 - 65 U/L | EXTERNAL | | | | | | LAB | | + + + + + + | Estimated | >60Comment: GFR <60: | mL/min/1.73m2 | EXTERNAL | | | GFR | CHRONIC KIDNEY DISEASE, | | LAB | | | | IF FOUND OVER A 3 MONTH | | | | | | PERIOD.GFR <15: KIDNEY | | | | | | FAILURE.FOR | | | | | | AMERICANS, MULTIPLY THE | | | | | | CALCULATED GFR BY | | | | | | 1.210.Testing performed | | | | | | at [facility] [address] | | | | | | [address];[place] [address] | | | | + + + + + + + + | Specimen | + + | Blood specimen | | (specimen) | + + + +---------+ + + | Performing | Address | City/State/Zipcode | Phone Number | | Organization | | | | + +---------+ + + | EXTERNAL LAB | | | | + +---------+ + + ECG 12 lead (05/28/2017 6:56 AM PDT) + + + + + + | Component | Value | Ref Range | Performed | Pathologist | | | | | At | Signature | + + + + + + | DIAGNOSIS: | Normal sinus rhythmLeft | | EXTERNAL | | | | bundle branch | | LAB | | | | blockAbnormal ECGNo | | | | | | previous ECGs | | | | | | availableThis ECG | | | | | | contains Unconfirmed | | | | | | Interpretation | | | | | | Statements. See ED | | | | | | Record for Physician | | | | | | Interpretation. | | | | | | Confirmed by MUSE READ | | | | | | ONLY, -COMPUTER ([id number]), | | | | | | associate editor Elva Resendiz | | | | | | ([id number]) on 05/30/2017 6:26:26 | | | | | | AM | | | | + + + + + + + + | Specimen | + + | | + + + + + | Narrative | Performed At | + + + | Historically converted procedure from [facility] environment | EXTERNAL LAB | + + + + +---------+ + + | Performing | Address | City/State/Zipcode | Phone Number | | Organization | | | | + +---------+ + + | EXTERNAL LAB | | | | + +---------+ + + XR Ankle Left 3 + Vw (05/28/2017 4:59 AM PDT) + + | Specimen | + + | | + + + + + | Narrative | Performed At | + + + | This is a non-reportable procedure without a radiologist report and | | | is used for image storage only | | + + + + + | Procedure Note | + + | Jose Ruth Conversion - 07/12/2019 8:04 AM PDT This is a non-reportable procedure | | without a radiologist report and isused for image storage only | + + XR Ankle Left 3 + Vw (05/28/2017 4:59 AM PDT) + + | Specimen | + + | | + + + + + | Narrative | Performed At | + + + | This is a non-reportable procedure without a radiologist report and | | | is used for image storage only | | + + + + + | Procedure Note | + + | Jose Ruth - 07/12/2019 8:04 AM PDT This is a non-reportable procedure | | without a radiologist report and isused for image storage only | + + XR Ankle Left 3 + Vw (05/26/2017 4:59 AM PDT) + + | Specimen | + + | | + + + + + | Narrative | Performed At | + + + | This is a non-reportable procedure without a radiologist report and | | | is used for image storage only | | + + + + + | Procedure Note | + + | FarazJose forman Conversion - 07/12/2019 8:04 AM PDT This is a non-reportable procedure | | without a radiologist report and isused for image storage only | + + XR Ankle Left 3 + Vw (05/26/2017 4:59 AM PDT) + + | Specimen | + + | | + + + + + | Narrative | Performed At | + + + | This is a non-reportable procedure without a radiologist report and | | | is used for image storage only | | + + + + + | Procedure Note | + + | Jose Ruth Andressa - 07/12/2019 8:04 AM PDT This is a non-reportable procedure | | without a radiologist report and isused for image storage only | + + documented in this encounter Visit Diagnoses + + | Diagnosis | + + | Pain Generalized pain | + + | Ankle dislocation, left, initial encounter | + + | Closed fracture of left ankle, initial encounter | + + documented in this encounter
--- OUTSIDE RECORDS SUMMARY | ~2020-04-23 | XMS | Clinical Summary ---
Demographics + + + | Address | [address] | | | [place] [address] | + + + | Home Phone | | + + + | Preferred Language | Unknown | + + + | Marital Status | Unknown | + + + | Yazidi Affiliation | Unknown | + + + | Race | Unknown | + + + | Ethnic Group | Unknown | + + + Author + + + | Author | [facility] | | | and [facility] | + + + | Organization | [facility] | | | and [facility] | + + + | Address | Unknown | + + + | Phone | Unavailable | + + + Support + + +---------+ + | Name | Relationship | Address | Phone | + + +---------+ + | Joaquin STYLES | Unknown | | + + +---------+ + Care Team Providers + +------+ + | Care Mission Manager Name | Role | Phone | + +------+ + | Palomo Gibbons MD | PCP | | + +------+ + Allergies No Known Allergies Medications + + + +---------+------+------+-------+ | Medication | Sig | Dispensed | Refills | Star | End | Statu | | | | | | t | Date | s | | | | | | Date | | | + + + +---------+------+------+-------+ | Multiple | Take 1 tablet by | | 0 | | | Activ | | Vitamins-Minerals | mouth nightly. | | | | | e | | (HAIR/SKIN/NAILS PO) | | | | | | | + + + +---------+------+------+-------+ | acetaminophen | Take 1,000 mg by | | 0 | | | Activ | | (TYLENOL) 500 mg | mouth nightly. | | | | | e | | tablet | | | | | | | + + + +---------+------+------+-------+ | cholecalciferol | Take 1,000 Units by | | 0 | | | Activ | | (VITAMIN D-3) 1000 | mouth Daily. | | | | | e | | UNITS TABS | | | | | | | + + + +---------+------+------+-------+ | B Complex-C (SUPER | Take 1 tablet by | | 0 | | | Activ | | B COMPLEX PO) | mouth Daily. | | | | | e | + + + +---------+------+------+-------+ | metoprolol | Take 50 mg by mouth | | 0 | | | Activ | | succinate | Daily. | | | | | e | | (TOPROL-XL) 50 mg 24 | | | | | | | | hr tablet | | | | | | | + + + +---------+------+------+-------+ | LORazepam (ATIVAN) | Take 1 mg by mouth 2 | | 0 | | | Activ | | 1 mg tablet | times daily. | | | | | e | + + + +---------+------+------+-------+ | buPROPion | Take 150 mg by mouth | | 0 | | | Activ | | (WELLBUTRIN SR) 150 | 2 times daily. | | | | | e | | mg 12 hr tablet | | | | | | | + + + +---------+------+------+-------+ | donepezil | Take 10 mg by mouth | | 0 | | | Activ | | (ARICEPT) 10 MG | nightly. | | | | | e | | tablet | | | | | | | + + + +---------+------+------+-------+ | QUEtiapine | Take 150 mg by mouth | | 0 | | | Activ | | (SEROQUEL XR) 150 mg | nightly. | | | | | e | | ER tablet | | | | | | | + + + +---------+------+------+-------+ | DULoxetine | Take 60 mg by mouth | | 0 | | | Activ | | (CYMBALTA) [address] | Daily. | | | | | e | | capsule | | | | | | | + + + +---------+------+------+-------+ | Ziprasidone HCl | Take 160 mg by mouth | | 0 | | | Activ | | (GEODON PO) | nightly. | | | | | e | + + + +---------+------+------+-------+ | CHOLESTYRAMINE PO | Take 1 tablet by | | 0 | | | Activ | | | mouth 3 times daily. | | | | | e | + + + +---------+------+------+-------+ Active Problems + + + | Problem | Noted Date | + + + | Left arm numbness | 07/29/2016 | + + + | Chronic neck pain | 07/29/2016 | + + + Immunizations + + + + | Name | Administration Dates | Next Due | + + + + | PNEUMOCOCCAL | 05/29/2017 | | | POLYSACCHARIDE | | | | 23-VALENT (PPSV23) | | | + + + + Social History + [...] recent travel history available. | + + Last Filed Vital Signs + + + + + | Vital Sign | Reading | Time Taken | Comments | + + + + + | Blood Pressure | 128/74 | 07/26/2017 11:44 AM | | | | | PDT | | + + + + + | Pulse | 68 | 07/26/2017 11:44 AM | | | | | PDT [...] + + + + | Weight | 76.7 kg (169 lb) | 07/26/2017 11:44 AM | | | | | PDT | | + + + + + | Height | 157.5 cm (5' 2") | 07/26/2017 11:44 AM | | | | | PDT | | + + + + + | Body Mass Index | 30.91 | 07/26/2017 11:44 AM | | | | | PDT | | + + + + + Plan of Treatment + + + + + | Health Maintenance | Due Date | Last Done | Comments | + + + + + | Vaccine: | | | | | Dtap/Tdap/Td (1 - | 3 | | | | Tdap) | | | | + + + + + | Vaccine: Zoster (1 | | | | | of 2) | 2 | | | + + + + + | Breast Cancer | | | | | Screening | 7 | | | + + + + + | Vaccine: | | 05/29/2017 | | | Pneumococcal 65+ (2 | 8 | | | | of 2 - PCV13) | | | | + + + + + | Vaccine: Influenza | | | | | (Season Ended) | 0 | | | + + + + + Implants + +------+------+ +--------+--------+--------+ | Implanted | Type | Area | Manufacture | Device | Shelf | Model | | | | | r | | Expira | / | | | | | | Identi | tion | Serial | | | | | | fier | Date | / Lot | + +------+------+ +--------+--------+--------+ | Iram Webber-Shilpa Gandhi 2.7x10 | | | Synthes | | | 202.21 | | - SnaImplanted: Qty: 1 on | | | | | | 0 / / | | 05/28/2017 by Darci Pedraza | | | | | | | | MD [place] | | | | | | | + +------+------+ +--------+--------+--------+ | Screw Sharona Slf-Tp Strdr 2.7x12 | | | Synthes | | | 202.21 | | - SnaImplanted: Qty: 2 on | | | | | | 2 / / | | 05/28/2017 by Darci Pedraza | | | | | | | | MD [place] | | | | | | | + +------+------+ +--------+--------+--------+ | Screw Crtx Slf-Tp Ss 3.5x12mm | | | Synthes | | | 204.81 | | - SnaImplanted: Qty: 1 on | | | | | | 2 / / | | 05/28/2017 by Darci Pedraza | | | | | | | | MD [place] | | | | | | | + +------+------+ +--------+--------+--------+ | Screw Crtx Slf-Tp Ss 3.5x14mm | | | Synthes | | | 204.81 | | - SnaImplanted: Qty: 1 on | | | | | | 4 / / | | 05/28/2017 by Darci Pedraza | | | | | | | | MD [place] | | | | | | | + +------+------+ +--------+--------+--------+ | Screw Crtx Slf-Tp Ss 3.5x16mm | | | Synthes | | | 204.81 | | - SnaImplanted: Qty: 1 on | | | | | | / / | | 05/28/2017 by Darci Pedraza | | | | | | | | MD [place] | | | | | | | + +------+------+ +--------+--------+--------+ | Screw Sharona Slf-Tp Ss 3.5x12mm | | | Synthes | | | 212.10 | | - SnaImplanted: Qty: 2 on | | | | | | / / | | 05/28/2017 by Darci Pedraza | | | | | | | | MD [place] | | | | | | | + +------+------+ +--------+--------+--------+ | Screw Sharona Slf-Tp Ss 3.5x14mm | | | Synthes | | | 212.10 | | - SnaImplanted: Qty: 2 on | | | | | | 3 / / | | 05/28/2017 by Darci Pedraza | | | | | | | | MD [place] | | | | | | | + +------+------+ +--------+--------+--------+ | Plate Dst Lat Fib 6h Lt - | | | Synthes | | | 02.112 | | SnaImplanted: Qty: 1 on | | | | | | .143 / | | 05/28/2017 by Darci Pedraza | | | | | | / | | MD [place] | | | | | | | + +------+------+ +--------+--------+--------+ Results Not on filefrom Last 3 Months Insurance +-------+--------+ +--------+ + +------+ | Payer | Benefi | Subscriber | Effect | Phone | Address | Type | | | t Plan | ID | berenice | | | | | | / | | Dates | | | | | | Group | | | | | | +-------+--------+ +--------+ + +------+ | MODA | MODA | [id number] | 11/28/19 | [phone] | [address] | PPO | | | FIRST | | 16-Pre | 9 | [id number] | | | | CHOICE | | sent | | [place], | | | | | | | | [place] [address] | | +-------+--------+ +--------+ + +------+ + +--------+ +--------+ + + | Guarantor Name | Accoun | Relation to | Date | Phone | Billing Address | | | t Type | Patient | of | | | | | | | | | | + +--------+ +--------+ + + | Anat Hidalgo | Person | Self [birth year] | [address] | | | al/Fam | | 1949 | [phone] | [place] [address] | | | ad | | | 1 (Home) | | + +--------+ +--------+ + + Advance Directives + + + + + | Type | Date Recorded | Patient | Explanation | | | | Absorption And Adsorption Engineer | | + + + + + | Power of | | | | | Tooth Cutter Contact Wheel | | | | + + + + + | Advance | | | | | Directive | | | | + + + + +
--- OUTSIDE RECORDS SUMMARY | ~2020-04-23 | XMS | Encounter Summary ---
Demographics + + + | Address | [address] | | | [place] [address] | + + + | Home Phone | | + + + | Preferred Language | Unknown | + + + | Marital Status | Unknown | + + + | Anglican Affiliation | Unknown | + + + | Race | Unknown | + + + | Ethnic Group | Unknown | + + + Author + + + | Author | [facility] | | | and [place] | + + + | Organization | [facility] | [...] Team Providers + +------+ + | Care Lime Kiln Operator Name | Role | Phone | [...] | MED [facility] EXTERNAL | MD Leah [address] | | | | | IMAGING [address] | | | | | [address] [place] | [place] [address] | | | | | [place] [address] | | | | | | [phone] | | | +--------+ + + + [...]
--- OUTSIDE RECORDS SUMMARY | ~2020-04-23 | XMS | Clinical Summary ---
Demographics + + + | Address | [address] | | | [place] [address] | + + + | Home Phone | | + + + | Preferred Language | Unknown | + + + | Marital Status | Single | + + + | Sabianism Affiliation | Unknown | + + + | Race | Unknown | + + + | Ethnic Group | Unknown | + + + Author + + + | Author | [facility] (Historical as of | | | 07-14-19) | + + + | Organization | [facility] (Historical as of | | | 07-14-19) | + + + | Address | Unknown | + + + | Phone | Unavailable | + + + Support + + +---------+ + | Name | Relationship | Address | Phone | + + +---------+ + | Jin Levi | ECON | Unknown | | + + +---------+ + Care Team Providers + +------+ + | Care Pony Trimmer Name | Role | Phone | + +------+ + | Palomo Gibbons MD | PP | | + +------+ + Allergies No Known Allergies Current Medications + + +---------+---------+------+------+-------+ | Prescription | Sig. | Disp. | Refills | Star | End | Statu | | | | | | t | Date | s | | | | | | Date | | | + + +---------+---------+------+------+-------+ | liothyronine | 25 mcg every | | | 06/ | | Activ | | (CYTOMEL) 25 MCG | morning. | | | 8 | | e | | tablet | | | | 17 | | | + + +---------+---------+------+------+-------+ | pantoprazole | 40 mg every morning | | | 06/2 | | Activ | | (PROTONIX) 40 MG | before breakfast. | | | /20 | | e | | tablet | | | | 17 | | | + + +---------+---------+------+------+-------+ | metoprolol | 50 mg daily. | | | 04/29 | | Activ | | (TOPROL-XL) 50 MG 24 | | | | 2/20 | | e | | hr tablet | | | | 17 | | | + + +---------+---------+------+------+-------+ | lisinopril | 2.5 mg daily. | | | 06/0 | | Activ | | (ZESTRIL) 2.5 MG | | | | /20 | | e | | tablet | | | | 17 | | | + + +---------+---------+------+------+-------+ | buPROPion | Take 1 tablet by | 60 | 0 | 07/0 | | Activ | | (WELLBUTRIN SR) 150 | mouth 2 (two) times | tablet | | 5/20 | | e | | MG 12 hr tablet | daily. | | | 17 | | | + + +---------+---------+------+------+-------+ | busPIRone (BUSPAR) | Take 1 tablet by | 60 | 0 | 07/0 | | Activ | | 10 MG | mouth 2 (two) times | tablet | | 5/20 | | e | | tabletIndications: | daily. Indications: | | | 17 | | | | Anxiety Disorder | Anxiety Disorder | | | | | | + + +---------+---------+------+------+-------+ | donepezil | Take 1 tablet by | 30 | 0 | 07/0 | | Activ | | (ARICEPT) 10 MG | mouth nightly. | tablet | | 5/20 | | e | | tablet | | | | 17 | | | + + +---------+---------+------+------+-------+ | DULoxetine | Take 1 capsule by | 30 | 0 | 07/0 | | Activ | | (CYMBALTA) [address] | mouth every morning. | capsule | | 5/20 | | e | | capsule | | | | 17 | | | + + +---------+---------+------+------+-------+ | gabapentin | Take 3 capsules by | 60 | 0 | 07/0 | | Activ | | (NEURONTIN) 300 MG | mouth 3 (three) | capsule | | 5/20 | | e | | capsule | times daily. | | | 17 | | | + + +---------+---------+------+------+-------+ | lithium carbonate | Take 1 capsule by | 30 | 0 | 07/0 | | Activ | | 300 MG capsule | mouth nightly. | capsule | | 5/20 | | e | | | | | | 17 | | | + + +---------+---------+------+------+-------+ | LORazepam (ATIVAN) | Take 1 tablet by | 30 | 0 | 07/0 | | Activ | | 0.5 MG tablet | mouth 4 (four) times | tablet | | 5/20 | | e | | | daily as needed. | | | 17 | | | + + +---------+---------+------+------+-------+ | quetiapine | Take 0.5 tablets by | 30 | 0 | 07/0 | | Activ | | (SEROQUEL) 300 MG | mouth nightly. | tablet | | 5/20 | | e | | tablet | | | | 17 | | | + + +---------+---------+------+------+-------+ | ziprasidone | Take 1 capsule by | 30 | 0 | 07/0 | | Activ | | (GEODON) 60 MG | mouth nightly. | capsule | | 5/20 | | e | | capsule | | | | 17 | | | + + +---------+---------+------+------+-------+ Active Problems + + + | Problem | Noted Date | + + + | Ankle fracture, left | 06/14/2017 | + + + | Closed fracture of left ankle | 05/28/2017 | + + + | Hx of bipolar disorder | 05/28/2017 | + + + | Hx of schizophrenia | 05/28/2017 | + + + | Abnormal LFTs (liver function tests) | 05/28/2017 | + + + | Hepatic steatosis | 05/28/2017 | + + + Immunizations + + + + | Name | Dates Previously Given | Next Due | + + + + | Pneumococcal | 05/29/2017 | | | Polysaccharide | | | | 23-valent | | | + + + + Social History + +-------+ +--------+------+ | Tobacco Use | Types | Packs/Day | Years | Date | | | | | Used | | + +-------+ +--------+------+ | Former Smoker | | | | | + +-------+ +--------+------+ + +---+---+---+ | Smokeless Tobacco: | | | | | Never Used | | | | + +---+---+---+ + + +---------+ + | Alcohol Use | Drinks/We | oz/Week | Comments | | | ek | | | + + +---------+ + | No | | | Has been going to AA for last 3 years | + + +---------+ + + + + | Sex Assigned at | Date Recorded | | | | + + + | Not on file | | + + + Last Filed Vital Signs + + + + | Vital Sign | Reading | Time Taken | + + + + | Blood Pressure | 128/74 | 07/26/2017 11:44 AM PDT | + + + + | Pulse | 68 | 07/26/2017 11:44 AM PDT | + + + + | Temperature | 36.8 C (98.2 F) | 06/01/2017 11:30 AM PDT | + + + + | Respiratory Rate | 14 | 06/01/2017 11:30 AM PDT | + + + + | Oxygen Saturation | 97% | 06/01/2017 11:30 AM PDT | + + + + | Inhaled Oxygen | - | - | | Concentration | | | + + + + | Weight | 76.7 kg (169 lb) | 07/26/2017 11:44 AM PDT | + + + + | Height | 157.5 cm (5' 2") | 07/26/2017 11:44 AM PDT | + + + + | Body Mass Index | 30.91 | 07/26/2017 11:44 AM PDT | + + + + Plan of Treatment + + + + + | Health Maintenance | Due Date | Last Done | Comments | + + + + + | Vaccine: | | | | | Dtap/Tdap/Td (1 - | 1 | | | | Tdap) | | | | + + + + + | Breast Cancer | | | | | Screening | 2 | | | | (Mammogram) | | | | + + + + + | Colon Cancer | | | | | Screening | 2 | | | | (Colonoscopy) | | | | + + + + + | Vaccine: Zoster (1 | | | | | of 2) | 2 | | | + + + + + | DEXA SCAN SCREENING | | | | | | 7 | | | + + + + + | Vaccine: | | 05/29/2017 | | | Pneumococcal 65+ | 8 | | | | Low/Medium Risk (2 | | | | | of 2 - PCV13) | | | | + + + + + | Vaccine: Influenza | | | | | (Season Ended) | 0 | | | + + + + + Implants + +------+------+ +--------+--------+--------+ | Implanted | Type | Area | Manufacture | Device | Expira | Model | | | | | r | | tion | / | | | | | | Identi | Date | Serial | | | | | | fier | | / Lot | + +------+------+ +--------+--------+--------+ | Screw Sharona Slf-Tp Strdr 2.7x10 | | | SYNTHES - | | | 202.21 | | - SnaImplanted: Qty: 1 on | | | SYNT | | | 0 / / | | 05/28/2017 by Darci Pedraza | | | | | | | | MD [place] | | | | | | | + +------+------+ +--------+--------+--------+ | Screw Sharona Slf-Tp Strdr 2.7x12 | | | SYNTHES - | | | 202.21 | | - SnaImplanted: Qty: 2 on | | | SYNT | | | 2 / / | | 05/28/2017 by Darci Pedraza | | | | | | | | MD [place] | | | | | | | + +------+------+ +--------+--------+--------+ | Screw Crtx Slf-Tp Ss 3.5x12mm | | | SYNTHES - | | | 204.81 | | - SnaImplanted: Mervin: 1 on | | | SYNT | | | 2 / / | | 05/28/2017 by Darci Pedraza | | | | | | | | MD [place] | | | | | | | + +------+------+ +--------+--------+--------+ | Screw Crtx Slf-Tp Ss 3.5x14mm | | | SYNTHES - | | | 204.81 | | - SnaImplanted: Qty: 1 on | | | SYNT | | | 4 / | | 05/28/2017 by Darci Pedraza | | | | | | | | MD [place] | | | | | | | + +------+------+ +--------+--------+--------+ | Screw Crtx Slf-Tp Ss 3.5x16mm | | | SYNTHES - | | | 204.81 | | - SnaImplanted: Qty: 1 on | | | SYNT | | | 6 / | | 05/28/2017 by Darci Pedraza | | | | | | | | MD [place] | | | | | | | + +------+------+ +--------+--------+--------+ | Screw Sharona Slf-Tp Ss 3.5x12mm | | | SYNTHES - | | | 212.10 | | - SnaImplanted: Qty: 2 on | | | SYNT | | | 2 / / | | 05/28/2017 by Darci Pedraza | | | | | | | | MD [place] | | | | | | | + +------+------+ +--------+--------+--------+ | Screw Sharona Slf-Tp Ss 3.5x14mm | | | SYNTHES - | | | 212.10 | | - SnaImplanted: Qty: 2 on | | | SYNT | | | 3 / / | | 05/28/2017 by Darci Pedraza | | | | | | | | MD [place] | | | | | | | + +------+------+ +--------+--------+--------+ | Plate Dst Lat Fib 6h Lt - | | | SYNTHES - | | | 02.112 | | SnaImplanted: Qty: 1 on | | | SYNT | | | .143 / | | 05/28/2017 by Darci Pedraza | | | | | | / | | MD [place] | | | | | | | + +------+------+ +--------+--------+--------+ Results Not on filefrom Last 3 Months Insurance + +--------+ +------+-------+ + | Payer | Benefi | Subscriber | Type | Phone | Address | | | t Plan | ID | | | | | | / | | | | | | | Group | | | | | + +--------+ +------+-------+ + | MEDICARE | MEDICA | [id number] | | | [address] | | | RE | | | | [place] [id number] | | | IP-OP | | | | | + +--------+ +------+-------+ + | [employer] [place] | MUTUAL | [id number] | | | | | | OF | | | | | | | [place] | | | | | + +--------+ +------+-------+ + + +--------+ +--------+ + + | Guarantor Name | Accoun | Relation to | Date | Phone | Billing Address | | | t Type | Patient | of | | | | | | | | | | + +--------+ +--------+ + + | KATELYNN HIDALGO | Person | Self [birth year] Home: | [address] | | | al/Fam | | 1949 | +- | [place] [address] | | | ad | | | [address]291 | | + +--------+ +--------+ + + | KATELYNN HIDALGO | Skille | Self [birth year] | Home: | [address] | | | d | | 1949 | +- | [place] [address] | | | Nursin | | | 8291 | | | | g | | | | | | | Facili | | | | | | | ty | | | | | + +--------+ +--------+ + +
--- OUTSIDE RECORDS SUMMARY | ~2020-04-23 | XMS | Encounter Summary ---
Demographics + + + | Address | [address] | | | [place] [address] | + + + | Home Phone | | + + + | Preferred Language | Unknown | + + + | Marital Status | Unknown | + + + | Sabianism Affiliation | Unknown | + + + | Race | Unknown | + + + | Ethnic Group | Unknown | + + + Author + + + | Author | and [facility] | | | and [place] | + + + | Organization | and [facility] | | | and [place] | + + + | Address | Unknown | + + + | Phone | Unavailable | + + + Support + + +---------+ + | Name | Relationship | Address | Phone | + + +---------+ + | Joauqin STYLES | Unknown | | + + +---------+ + Care Team Providers + +------+ + | Care Gas Controller Name | Role | Phone | + +------+ + | Palomo Gibbons MD | PCP | | + +------+ + Encounter Details +--------+ + + + + | Date | Type | Department | Care Team | Description | +--------+ + + + + | 06/14/ | Orders Only | [facility] | Darci Pedraza | | | 2016 | | [address] | MD [place] [address] | | | | | [address] | [place], | | | | | [facility] | [place] [address] | | | | | [address] | [phone] | | | | | [phone] | | | +--------+ + + + [...]
--- OUTSIDE RECORDS SUMMARY | ~2020-04-23 | XMS | Encounter Summary ---
Demographics + + + | Address | [address] | | | [place] [address] | + + + | Home Phone | | + + + | Preferred Language | Unknown | + + + | Marital Status | Unknown | + + + | Sikh Affiliation | Unknown | + + + | Race | Unknown | + + + | Ethnic Group | Unknown | + + + Author + + + | Author | [facility] | | | and [place] | + + + | Organization | [facility] | | | and [...] Team Providers + +------+ + | Care Stonework Tracer Name | Role | Phone | + [...] | MED CTR EXTERNAL | MD [address] | | | | | [address]ING [address] | [place] | | | | | [address] [place] | [place] [address] | | | | | [place] [address] | | | | | | [phone] | | | +--------+ + + + [...]
--- OUTSIDE RECORDS SUMMARY | ~2020-04-23 | XMS | Encounter Summary ---
Demographics + + + | Address | [address] | | | [place] [address] | + + + | Home Phone | | + + + | Preferred Language | Unknown | + + + | Marital Status | Unknown | + + + | Church Affiliation | Unknown | + + + | Race | Unknown | + + + | Ethnic Group | Unknown | + + + Author + + + | Author | [facility] | | | and [place] | + + + | Organization | [facility] | | | and [...] Team Providers + +------+ + | Care Facility Maintenance Worker Name | Role | Phone | + [...] | MED CTR EXTERNAL | MD [address] | | | | | IM[address] | [address] | | | | | [address] [place] | [place] [address] | | | | | [place] [address] | | | | | | [phone] | | | +--------+ + + + [...]
--- OUTSIDE RECORDS SUMMARY | ~2020-04-23 | XMS | Encounter Summary ---
Demographics + + + | Address | [address] | | | [place] [address] | + + + | Home Phone [...] + + + | Author | [facility] | | | and [place] | + + + | Organization | [facility] | | | and [place] [...] Team Providers + +------+ + | Care Telephone Lines Repairer Name | Role | Phone | + [...] | MED CTR EXTERNAL | MD [address] | | | | | IM[address] | [address] [place] | | | | | [address] [place] | [place] [address] | | | | | [place] [address] | | | | | | [phone] | | | +--------+ + + + [...]
--- OUTSIDE RECORDS SUMMARY | ~2020-04-23 | XMS | Encounter Summary ---
Demographics + + + | Address | [address] | | | [place] [address] | + + + | Home Phone | | + + + | Preferred Language | Unknown | + + + | Marital Status | Unknown | + + + | Cheondoism Affiliation | Unknown | + + + | Race | Unknown | + + + | Ethnic Group | Unknown | + + + Author + + + | Author | [facility] | | | and [place] | + + + | Organization | [facility] | | | and [...] Team Providers + +------+ + | Care Competitive Athlete Name | Role | Phone | + [...] | | | ulnar nerve, | [place] [address] | [address] Phone: | | | | | left upper | Phone: | [phone] | | | | | limb | [phone] | Fax: | | | | | Procedures | Fax: | [phone] | | | | | NC MOTOR | [phone] | | | | | | &/SENS 1-2 | | | | | | | NRV CNDJ | | | | | | | PRECONF | | | | | | | ELTRODE LIMB | | | | | | | NC MOTOR | | | | | | | &/SENS 3-4 | | | | | | | NRV CNDJ | | | | | | | PRECONF | | | | | | | ELTRODE LIMB | | | | | | | NC MOTOR | | | | | | | &/SENS 7-8 | | | | | | | NRV CNDJ | | | | | | | PRECONF | | | | | | | ELTRODE LIMB | | | | | | | NC NEEDLE | | | | | | [...] + + | 07/28/ | Procedure | [facility] | Lalito Ortiz, | Left arm numbness | | 2015 | visit | PHYSIATRY [address] | MD Debora ANSARI | (Primary Dx); | | | | [address] | [address] | Chronic neck pain; | | | | [place] | [place] [address] | Ulnar neuropathy of | | | | [address] | [phone] | left upper | | | | [phone] | | extremity; Cervical | | | [...] + | Lalito Ortiz MD 07/29/2016 13:14 [facility] | | | Physician Group [facility] | | | [facility] [address] [place] [address] Ph: | | | Test Date: 07/27/2016 | | | Patient Name: Anat Ramos : 1950 Physician: Gilbert | | | MD Diana MR #: [id number] Sex: Female Referring Physician: | | | [...] were normal | | | with no axbs-ud-cztq difference. 2. Left median and right ulnar [...] | | | Lalito Ortiz MD Diplomate, Syrian | | | Board of Physical Medicine [...]
--- OUTSIDE RECORDS SUMMARY | ~2020-04-23 | XMS | Encounter Summary ---
Demographics + + + | Address | [address] | | | [place] [address] | + + + | Home Phone | | + + + | Preferred Language | Unknown | + + + | Marital Status | Unknown | + + + | Moravian Affiliation | Unknown | + + + | Race | Unknown | + + + | Ethnic Group | Unknown | + + + Author + + + | Author | [facility] | | | and [place] | + + + | Organization | [facility] | | | and [place] | + + + | Address | Unknown | + + + | Phone | Unavailable | + + + Support + + +---------+ + | Name | Relationship | Address | Phone | + + +---------+ + | Joaquin SYTLES | Unknown | | + + +---------+ + Care Team Providers + +------+ + | Care Plant Physiology Teacher Name | Role | Phone | + [...] | | [address] | [place] [address] | | | | | [address] | [phone] | | | | | [phone] | | | +--------+ + + + [...] is normal in size and function. 4. Ufdw-jt-qgthjkcx mitral | | | regurgitation is present. [...] is normal in size and function. 4. Okhm-ee-etlqqapg mitral | | | regurgitation is present. FINDINGS -------- ECG rhythm: Sinus | | | rhythm. Study: A 2-dimensional transthoracic echocardiogram with | | | m-mode, spectral and color flow Dopple with LV strain imaging was | | | perfomed at [facility]. Study: This was a technically | | [...] is normal. Mitral Valve: | | | Kyeq-ri-vonwwxya mitral regurgitation is present. Tricuspid Valve: | [...] | | | TR Vmax: 2.46 m/s Electronic Pagination System Operator: ANNETTE Authenticated by: LEONARD | | | MD IVETTE Report Date/Time: -[id number] | | + + + + + [...] ventricle is normal in size and function.4. Ibna-ze-freexsvh mitral | | regurgitation is present. FINDINGS--------ECG rhythm: Sinus rhythm.Study: A | | 2-dimensional transthoracic echocardiogram with m-mode, spectral and color flow Dopple | | with LV strain imaging was perfomed at [facility].Study: This was a | | technically adequate [...] | | mitral valve is normal.Mitral Valve: Qfho-lt-ilskjfav mitral regurgitation is | | present.Tricuspid Valve: [...] cmLVIDd: 4.06 cmLVPWd: 0.82 cmLVOT Area: 3.11 [id number] Diam: | | 1.99 cm%FS: 31.98 %EF(Teich): [...] (A-L): | | 25.94 ml/m2LAAs A2C: 15.00 [id number] A-L A2C: 43.46 mlLALs A2C: 4.39 cmLAAs A4C: | | 15.02 is3VWYAA A-L A4C: 44.67 mlLALs A4C: 4.28 cmRAAs: 8.34 [id number] A-L: 18.05 | | mlRAESV MOD: 17.24 mlRALs: 3.27 cmTAPSE: 2.29 cmAV maxP.59 mmHgAV meanPG: | | 5.38 mmHgAV Vmax: 1.77 m/Donald Vmean: 1.09 m/Donald VTI: 26.07 cmAVA Vmax: 2.47 | | cm2AVA (VTI): 2.72 ap6UUVR Vmax: 0.00 cm2/m2AVAI (VTI): 0.00 cm2/m2LVOT maxPG: | | 7.94 mmHgLVOT meanP.62 mmHgLVSI Dopp: 41.34 ml/m2LVSV Dopp: 71.10 mlLVOT Vmax: | | 1.40 m/sLVOT Vmean: 0.86 m/sLVOT VTI: 22.81 cmMV A Faustino: 1.26 m/sMV DecT: | | 230.68 msMV E Faustino: 0.93 m/sMV E/A Ratio: 0.74MV PHT: 66.89 msMVA By PHT: 3.28 | | me9Qchvdn e': 0.03 m/sSeptal E/e': 24.94Lateral e': 0.03 m/sLateral E/e': | | 29.97RAP: 5 mmHgRVSP: 29.37 mmHgTR maxP.37 mmHgTR Vmax: 2.46 m/s | | Electronic Pagination System Operator: MALACHIuthenticated by: Isabel AVENDAÑO Date/Time: -- | | [id number] IMPRESSION: 1. Overall left ventricular systolic function is | | normal with, an EF between 65 - 70 %. However, there is hyopkinesis of basal | | inferolateral and basal anteroseptal segments.2. The diastolic filling pattern indicates | | impaired relaxation and elevated LA pressure consistent with mild dysfunction (Grade | | I).3. The right ventricle is normal in size and function.4. Zzct-tf-njrppfof mitral | | regurgitation is present. | [...] |TR Vmax: 2.46 m/s | | | |Electronic Pagination System Operator: | |Authenticated by: LEONARD STEELE MD | |Report Date/Time: -- [id number] | | | |IMPRESSION: | |1. Overall [...] normal in size and function. | |4. Qkaz-op-sppvdfpz mitral regurgitation is present. | + + documented in this encounter Visit Diagnoses Not on filedocumented in this encounter"
[~2020-04-23 23:10] MED LIST changes: +PRAZOSIN HCL1 MG PO
--- OUTSIDE RECORDS SUMMARY | 2020-04-23 23:14 | XMS ---
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 Meg has no Care Guidelines for this patient. [facility] V[facility] (12 MO.) [facility] T[facility] NOTE: Visits indicate total known visits. [facility] [place] (12 MO.) 04/23/2020 23:11 [facility] [place] TYPE: Emergency COMPLAINT: - BLOOD PRESSURE PROBLEM 04/19/2020 23:22 [facility] [place] [place] TYPE: Emergency COMPLAINT: - LOW BLOOD PRESSURE DIAGNOSES: - Hypotension, unspecified - Essential (primary) hypertension - Dizziness and giddiness - Other lobsterman (current) drug therapy 02/07/2020 04:22 [facility] [place] TYPE: Emergency COMPLAINT: - HEAD WOUND FROM FALL DIAGNOSES: - Bipolar disorder, unspecified - Other alf (current) drug therapy - Essential (primary) hypertension - Fall from bed, initial encounter - Laceration without foreign body of right eyelid and periocula INPATIENT VISIT TRACKING (12 MO.) No inpatient visits to display in this time frame [email or web address]
== END 2020-04-24 05:46 | disposition home or self-care (01) ==
LOC: ED 23:10
DX: I95.9 Hypotension, unspecified (principal); I10 Essential (primary) hypertension; F31.9 Bipolar disorder, unspecified; Z79.899 Other long term (current) drug therapy
CPT/HCPCS: 80053; 81001; 85025; 96360; 96361; 99284-25; J7030